=== PATIENT | male | born 1970 | race African-American/Black ===

== ENCOUNTER 2017-07-23 13:39 | Emergency (ER) | payer SELFPAY ==
[2017-07-23 17:12] LABS: Urine Blood TRACE (NEG); Urine Glucose TRACE (NEG); Urine Protein 1+ (NEG); Urine Specific Gravity >1.030 (1.005-1.030)
[2017-07-23 17:19] LABS: Absolute Lymphocytes (CBC) 2.4 K/uL (0.7-4.9); Absolute Monocytes 0.6 K/uL (0.1-1.3); Absolute Neutrophil 4.6 K/uL (1.8-8.0); Basophils % 0.7 % (0-1.3); Eosinophils % 1.5 % (0-4.4); Hematocrit 44.9 % (39.6-49.0); Lymphocytes % 30.2 % (15.3-44.8); MCH 29.9 pg (27.0-35.0); MCV 92.3 fL (80-100); MPV 8.4 fL (7.6-11.3); Monocytes % 7.9 % (3.3-12.3); RBC Red Blood Cell Count 4.86 M/uL (4.33-5.43)
[2017-07-23 17:29] LABS: Bicarbonate 28 mEq/L (21-31); Glucose Level 66 mg/dL (65-120); Lipase 19 U/L (22-51); Potassium 3.9 mEq/L (3.6-5.0); Sodium Level 138 mEq/L (135-145)
[2017-07-23 17:34] LABS: ALT/SGPT 24 IU/L (10-60); AST/SGOT 19 IU/L (10-42); Albumin 4.1 g/dL (3.2-5.5); Alkaline Phosphatase 48 IU/L (42-121); BUN Blood Urea Nitrogen 22 mg/dL (6-20); Bilirubin Direct 0.2 mg/dL (0-0.2); Bilirubin Total 1.2 mg/dL (0.3-1.2); Glomerular Filtration Rate > 90 mL/min (=/>90)
--- NOTE | 2017-07-23 18:26 | RAD REPORT ---
EXAM DESCRIPTION: CTAbdomen Pelvis W Contrast - 07/23/2017 6:00 pm CLINICAL HISTORY: Abdominal pain. GI bleeding. COMPARISON: 08/25/11 TECHNIQUE: Biphasic CT imaging of the abdomen and pelvis was performed with 100 ml non-ionic IV cont rast. All CT scans are performed using dose optimization technique as appropriate and may include automated exposure control or mA/KV adjustment according to patient size. FINDINGS: The lung bases are clear. The liver demonstrates rounded low-density lesions, the largest measuring about 3 cm in the right lob e inferiorly, likely benign hemangioma or similar benign lesions. Little overall change is seen since the comparative study. No biliary dilatation. The spleen, pancreas, adrenal glands and kidneys are w ithin normal limits. No bowel obstruction, free air, free fluid or abscess. Sigmoid diverticulosis coli is present without diverticulitis. The appendix is normal. No evidence of significant lymphadenopathy. No suspicious bony findings. IMPRESSION: No acute intra-abdominal or pelvic finding. Prominent sigmoid diverticulosis coli without diverticulitis. Colonoscopy would be suggested for foll owup assessment if not recently performed.
--- NOTE | 2017-07-23 19:10 | ER ---
Nurse's Notes [facility] Name: Davonte Boucher Age: 46 yrs Sex: Male : 1970 Arrival Date: 07/23/2017 Time: 13:41 Bed 18 Private MD: Diagnosis: Gastrointestinal hemorrhage, unspecified Presentation: 07/23 13:50 Presenting complaint: Patient states: "I guess I took too many pills for my toothache. lk1 I have taken any kind of pill I could get. I got my tooth pulled today and I have some blood in my stool.". Transition of care: patient was not received from another setting of care. Onset of symptoms was July 23, 2017 at 13:00. Care prior to arrival: None. 13:50 Method Of Arrival: Ambulatory lk1 13:50 Acuity: PADMINI 3 lk1 Triage Assessment: 13:52 General: Appears in no apparent distress. Behavior is cooperative, appropriate for age, lk1 agitated. Pain: Complains of pain in abdomen Pain currently is 7 out of 10 on a pain scale. Quality of pain is described as crampy. GI: Reports cramping, rectal bleeding, bloody stool. Historical: - Allergies: 13:52 No Known Allergies; lk1 - PMHx: 13:52 None; lk1 - PSHx: 13:52 None; lk1 - Immunization history:: Adult Immunizations up to date. - Social history:: Smoking status: Patient uses tobacco products, smokes one-half pack cigarettes per day. Screenin:20 Abuse screen: Denies threats or abuse. Nutritional screening: No deficits noted. em Tuberculosis screening: No symptoms or risk factors identified. Fall Risk None identified. Assessment: 16:20 General: Appears in no apparent distress. comfortable, Behavior is calm, cooperative. em Pain: Complains of pain in abdomen Pain does not radiate. Pain currently is 8 out of 10 on a pain scale. Quality of pain is described as sharp. Neuro: Level of Consciousness is awake, alert, obeys commands, Oriented to person, place, time, situation, Moves all extremities. Speech is normal, Facial symmetry appears normal, Reports dizziness, Denies weakness. Cardiovascular: Capillary refill < 3 seconds Patient's skin is warm and dry. Respiratory: Airway is patent Respiratory effort is even, unlabored, Respiratory pattern is regular, symmetrical. GI: Abdomen is round non-distended, Bowel sounds present X 4 quads. Abd is soft X 4 quads Abdomen is tender to palpation X 4 quads. Reports rectal bleeding, bloody stool, nausea, Patient currently denies vomiting. : Urine is clear. EENT: No signs and/or symptoms were reported regarding the EENT system. Derm: Skin is intact, Skin is pink, warm \\T\\ dry. Musculoskeletal: Range of motion: intact in all extremities. 16:30 General: The previous assessment is accurate, call light remains within reach. . ss 17:16 Reassessment: Patient appears in no apparent distress at this time. Patient and/or em family updated on plan of care and expected duration. Pain level reassessed. Patient is alert, oriented x 3, equal unlabored respirations, skin warm/dry/pink. 18:40 Reassessment: Patient appears in no apparent distress at this time. Patient and/or em family updated on plan of care and expected duration. Pain level reassessed. Patient is alert, oriented x 3, equal unlabored respirations, skin warm/dry/pink. pt request pain medication, LYDIA Holguin notified, new orders received. 19:00 Reassessment: RECD REPORT FROM RIVERA FURNITURE PACKER. 46YO BM P/W RECTAL BLEEDING AND ABD PAIN. ALL bp CURRENT ORDERS COMPLETED, DISPO PENDING. 19:23 Reassessment: PT D/C HOME AMBULATORY WITH FAMILY, DX WITH UNSPECIFIED GI HEMORRHAGE. bp Vital Signs: 13:53 BP 138 / 92; Pulse 75; Resp 16; Temp 98.2(TE); Pulse Ox 97% on R/A; Weight 107.95 kg lk1 (R); Height 5 ft. 8 in. (172.72 cm); Pain 7/10; 16:10 BP 127 / 78; Pulse 55; Resp 18; Pulse Ox 99% on R/A; em 17:00 BP 131 / 84; Pulse 59; Resp 18; Pulse Ox 99% on R/A; Pain 7/10; em 19:00 BP 149 / 95; Pulse 63; Resp 16; Pulse Ox 99% ; bp 13:53 Body Mass Index 36.19 (107.95 kg, 172.72 cm) lk1 ED Course: 13:41 Patient arrived in ED. as 13:52 Triage completed. lk1 13:55 Arm band placed on left wrist. lk1 15:56 Ezio Mejia NP is PHCP. pm1 15:56 Bismark Knight MD is Attending Physician. pm1 16:00 Rivera Puga LVN is Primary Nurse. em 16:30 Patient has correct armband on for positive identification. Bed in low position. Call em light in reach. Side rails up X2. Adult w/ patient. 16:40 Served as a director of provider relations during rectal exam. em 16:51 Radiology exam delayed due to lab results not completed at this time. (BUN/Creatinine). sj 16:55 Initial lab(s) drawn, by me, sent to lab. T\\T\\S collected, blood band applied to patient. em Inserted saline lock: 20 gauge in left antecubital area, using aseptic technique. Blood collected. 17:[address] via wheelchair. nj 18:00 CT Abd/Pelvis - W/Contrast: IV contrast only In Process Unspecified. EDMS 19:08 Kristofer Plata MD is Referral Physician. pm1 19:24 IV discontinued, intact, bleeding controlled, No redness/swelling at site. Pressure bp dressing applied. Administered Medications: 19:00 Drug: morphine 4 mg Route: IVP; Site: left antecubital; iw 19:13 Follow up: Response: Pain is decreased bp 19:00 Drug: Zofran 4 mg Route: IVP; Site: left antecubital; iw 19:13 Follow up: Response: Pain is decreased bp Outcome: 19:09 Discharge ordered by MD. pm1 19:24 Discharged to home ambulatory, with family. bp 19:24 Condition: stable 19:24 Discharge instructions given to patient, family, Instructed on discharge instructions, follow up and referral plans. medication usage, Demonstrated understanding of instructions, follow-up care, medications, Prescriptions given X 1. 19:25 Patient left the ED. bp Signatures: Dispatcher [employer] EDKY Natalie Donovan Rivera Puga LVN LVN em Caity Goins Irene, MARTY FERGUSON Germaine Bowman RN RN Kimberlee Pereira RN RN lk1 Ezio Mejia NP VALUE ANALYSIS COORDINATOR pm1 Marcio Delgado Brian RN RN bp Corrections: (The following items were deleted from the chart) 19:15 18:40 Reassessment: Patient appears in no apparent distress at this time. Patient em and/or family updated on plan of care and expected duration. Pain level reassessed. Patient is alert, oriented x 3, equal unlabored respirations, skin warm/dry/pink. Patient states feeling better. em
--- NOTE | 2017-07-23 19:10 | EDPHYS ---
Physician Documentation [facility] Name: Davonte Boucher Age: 46 yrs Sex: Male : 1970 Arrival Date: 07/23/2017 Time: 13:41 Bed 18 Private MD: ED Physician Bismark Knight HPI: 07/23 17:00 This 46 yrs old Black Male presents to ER via Ambulatory with complaints of Rectal pm1 Bleeding. 17:00 The patient presents to the emergency department with bleeding from the rectum/anus, pm1 that is mild. Onset: The symptoms/episode began/occurred today. Modifying factors: The symptoms are alleviated by nothing, The symptoms are aggravated by bowel movement. Associate signs and symptoms: Pertinent positives: Cramping abdominal pain, Pertinent negatives: constipation, diarrhea, dysuria, fever, vomiting. The patient has not experienced similar symptoms in the past. Patient with dental extraction today. Patient reports that he was taking ibuprofen and tylenol for pain. Patient with bright red blood on solid stool and with wiping with one bowel movement today. Historical: - Allergies: 13:52 No Known Allergies; lk1 - PMHx: 13:52 None; lk1 - PSHx: 13:52 None; lk1 - Immunization history:: Adult Immunizations up to date. - Social history:: Smoking status: Patient uses tobacco products, smokes one-half pack cigarettes per day. ROS: 17:00 Constitutional: Negative for fever, chills, and weight loss, Eyes: Negative for injury, pm1 pain, redness, and discharge, ENT: Negative for injury, pain, and discharge, Neck: Negative for injury, pain, and swelling, Cardiovascular: Negative for chest pain, palpitations, and edema, Respiratory: Negative for shortness of breath, cough, wheezing, and pleuritic chest pain. 17:00 Back: Negative for injury and pain, : Negative for injury, bleeding, discharge, and swelling, MS/Extremity: Negative for injury and deformity, Skin: Negative for injury, rash, and discoloration, Neuro: Negative for headache, weakness, numbness, tingling, and seizure. 17:00 Abdomen/GI: Positive for abdominal pain, rectal bleeding, Negative for nausea, vomiting, and diarrhea. Exam: 17:00 Constitutional: This is a well developed, well nourished patient who is awake, alert, pm1 and in no acute distress. Head/Face: Normocephalic, atraumatic. Eyes: Pupils equal round and reactive to light, extra-ocular motions intact. Lids and lashes normal. Conjunctiva and sclera are non-icteric and not injected. Cornea within normal limits. Periorbital areas with no swelling, redness, or edema. ENT: Nares patent. No nasal discharge, no septal abnormalities noted. Tympanic membranes are normal and external auditory canals are clear. Oropharynx with no redness, swelling, or masses, exudates, or evidence of obstruction, uvula midline. Mucous membranes moist. Neck: Trachea midline, no thyromegaly or masses palpated, and no cervical lymphadenopathy. Supple, full range of motion without nuchal rigidity, or vertebral point tenderness. No Meningismus. Chest/axilla: Normal chest wall appearance and motion. Nontender with no deformity. No lesions are appreciated. Cardiovascular: Regular rate and rhythm with a normal S1 and S2. No gallops, murmurs, or rubs. Normal PMI, no JVD. No pulse deficits. Respiratory: Lungs have equal breath sounds bilaterally, clear to auscultation and percussion. No rales, rhonchi or wheezes noted. No increased work of breathing, no retractions or nasal flaring. Abdomen/GI: Soft, non-tender, with normal bowel sounds. No distension or tympany. No guarding or rebound. No evidence of tenderness throughout. 17:00 Back: No spinal tenderness. No costovertebral tenderness. Full range of motion. Skin: Warm, dry with normal turgor. Normal color with no rashes, no lesions, and no evidence of cellulitis. MS/ Extremity: Pulses equal, no cyanosis. Neurovascular intact. Full, normal range of motion. 17:00 Abdomen/GI: Rectal exam: rectal tone normal, Stool: guaiac positive, hemorrhoid(s), are not appreciated, Rivera FERGUSON. 17:00 Neuro: Orientation: is normal, Motor: moves all fours, Sensation: is normal, no obvious gross deficits. Vital Signs: 13:53 BP 138 / 92; Pulse 75; Resp 16; Temp 98.2(TE); Pulse Ox 97% on R/A; Weight 107.95 kg lk1 (R); Height 5 ft. 8 in. (172.72 cm); Pain 7/10; 16:10 BP 127 / 78; Pulse 55; Resp 18; Pulse Ox 99% on R/A; em 17:00 BP 131 / 84; Pulse 59; Resp 18; Pulse Ox 99% on R/A; Pain 7/10; em 19:00 BP 149 / 95; Pulse 63; Resp 16; Pulse Ox 99% ; bp 13:53 Body Mass Index 36.19 (107.95 kg, 172.72 cm) lk1 MDM: 15:57 Patient medically screened. pm1 16:06 Refusal of service: The patient/guardian displays adequate decision making capability pm1 and despite a detailed discussion of alternatives, benefits, risks, and consequences refuses: Patient refused rectal exam. 19:05 ED course: Patient without any bowel movement or rectal bleeding in the ER. Hemoglobin pm1 stable. Patient requesting pain medication for dental extraction today. Patient was prescribed ibuprofen by dentist. Will discharge with tylenol #3.. 19:07 Data reviewed: vital signs. Data interpreted: Pulse oximetry: on room air is 99 %. pm1 Interpretation: normal. Counseling: I had a detailed discussion with the patient and/or guardian regarding: the historical points, exam findings, and any diagnostic results supporting the discharge/admit diagnosis, lab results, radiology results, the need for outpatient follow up, a senior security analyst, colonscopy, to return to the emergency department if symptoms worsen or persist or if there are any questions or concerns that arise at home, . 07/23 16:06 Order name: Basic Metabolic Panel; Complete Time: 18:06 pm1 07/23 16:06 Order name: CBC with Diff; Complete Time: 17:29 pm1 07/23 16:06 Order name: Hepatic Function; Complete Time: 18:06 pm1 07/23 16:06 Order name: Lipase; Complete Time: 18:06 pm1 07/23 16:44 Order name: Type And Screen; Complete Time: 18:23 pm1 07/23 17:10 Order name: Urine Dipstick--Ancillary (enter results); Complete Time: 17:29 bd 07/23 16:06 Order name: IV Saline Lock; Complete Time: 17:17 pm1 07/23 16:06 Order name: Labs collected and sent; Complete Time: 17:17 pm1 07/23 16:06 Order name: Urine Dipstick-Ancillary (obtain specimen); Complete Time: 17:17 pm1 07/23 16:44 Order name: CT Abd/Pelvis - W/Contrast: IV contrast only; Complete Time: 18:27 pm1 Administered Medications: 19:00 Drug: morphine 4 mg Route: IVP; Site: left antecubital; iw 19:13 Follow up: Response: Pain is decreased bp 19:00 Drug: Zofran 4 mg Route: IVP; Site: left antecubital; iw 19:13 Follow up: Response: Pain is decreased bp Disposition: 07/23/17 19:09 Discharged to Home. Impression: Gastrointestinal hemorrhage, unspecified. - Condition is Stable. - Discharge Instructions: Gastrointestinal Bleeding. - Prescriptions for Tylenol- Codeine #3 300-30 mg Oral Tablet - take 2 tablets by ORAL route every 6 hours As needed; 20 tablet. - Medication Reconciliation Form, Thank You Letter, Work release form form. - Follow up: Emergency Department; When: As needed; Reason: Worsening of condition. Follow up: Private Physician; When: 2 - 3 days; Reason: Recheck today's complaints, Continuance of care, Re-evaluation by your physician. Follow up: Kristofer Plata MD; When: 2 - 3 days; Reason: Recheck today's complaints, Continuance of care, Re-evaluation by your physician. - Problem is new. - Symptoms have improved. Addendum: 07/28/2017 03:03 Co-signature as Attending Physician, Bismark Knight MD I agree with the assessment and t w4 plan of care. Signatures: Dispatcher [employer] Kaylynn Gonzalez, Kimberlee Childs RN RN RN lk1 Ezio Mejia, PROCESS STEWARD PROCESS STEWARD pm1 Bernardo Longo, Bismark Duran RN, MD MD tw4
[2017-07-23] MEDS ORDERED: MORPHINE 4 MG/ML SYR ONE (19:18)
[2017-07-23] MEDS ORDERED: ONDANSETRON 4 MG/2 ML VIAL ONE (19:18)
[2017-07-23 19:29] VITALS: TEMP 98.2
[2017-07-23 19:30] VITALS: O2SAT 99
[2017-07-23 19:32] VITALS: BP 149/95
== END 2017-07-23 19:25 | disposition home or self-care (01) ==
LOC: ER 13:39
DX: K92.2 Gastrointestinal hemorrhage, unspecified (principal); F17.210 Nicotine dependence, cigarettes, uncomplicated
CPT/HCPCS: 36415; 74177; 80048; 80076; 81003; 83690; 85025; 86850; 86900; 86901; 96374; 96375; 99284; J2405; Q9967

== ENCOUNTER 2017-08-13 06:57 | Emergency (ER) | payer SELFPAY ==
[2017-08-13] MEDS ORDERED: MORPHINE 4 MG/ML SYR ONE ×3 (08:52→11:37)
[2017-08-13] MEDS ORDERED: ONDANSETRON 4 MG/2 ML VIAL ONE (08:53)
[2017-08-13] MEDS ORDERED: NA CHLORIDE 0.9% 1,000 ML ONE (08:53)
[2017-08-13 09:21] LABS: Absolute Lymphocytes (CBC) 1.9 K/uL (0.7-4.9); Absolute Monocytes 0.5 K/uL (0.1-1.3); Absolute Neutrophil 3.4 K/uL (1.8-8.0); Eosinophils % 2.5 % (0-4.4); Hematocrit 44.9 % (39.6-49.0); MCH 30.5 pg (27.0-35.0); MCV 91.7 fL (80-100); MPV 8.7 fL (7.6-11.3); Monocytes % 7.7 % (3.3-12.3)
[2017-08-13 10:20] LABS: Bicarbonate 27 mEq/L (21-31); Glucose Level 98 mg/dL (65-120); Lipase 16 U/L (22-51); Potassium 3.9 mEq/L (3.6-5.0); Sodium Level 142 mEq/L (135-145)
[2017-08-13 10:26] LABS: ALT/SGPT 29 IU/L (10-60); AST/SGOT 23 IU/L (10-42); Albumin 3.8 g/dL (3.2-5.5); Alkaline Phosphatase 46 IU/L (42-121); BUN Blood Urea Nitrogen 21 mg/dL (6-20); Bilirubin Direct 0.1 mg/dL (0-0.2); Bilirubin Total 0.6 mg/dL (0.3-1.2); Protein, Total 6.6 g/dL (6.0-8.3)
--- NOTE | 2017-08-13 10:49 | RAD REPORT ---
EXAM DESCRIPTION: CT - Abdomen Pelvis W Contrast - 08/13/2017 10:12 am CLINICAL HISTORY: Abdominal pain COMPARISON: CT study July 23, 2017 and August 2011 TECHNIQUE: Biphasic, helical CT imaging of the abdomen and pelvis was performed following 100 ml non -ionic IV contrast. Oral contrast was given. All CT scans are performed using dose optimization technique as appropriate and may include automated exposure control or mA/KV adjustment according to patient size. FINDINGS: No suspicious findings in the lung bases. Low-density lesions are again noted in the liver. Largest is a subcapsular lower right lobe lesion ap proximately 2.8 cm in size. Benign hemangioma is would be the most likely etiology. The lack of progr ession indicates a benign etiology as well. No splenic abnormality. No pancreatic or peripancreatic a bnormal finding. Gallbladder and biliary tree are also without suspicious finding. Symmetric renal function is seen with no hydronephrosis or suspicious renal mass. No acute renal pare nchymal process. Partially filled urinary bladder shows no suspicious finding No dilated bowel loop. Stomach and small bowel show no suspicious findings. The appendix is normal. F rom the cecum through the descending colon there is no acute process. Patient again noted to have mil d to moderate diverticulosis in this portion of the colon. Diverticulosis is more prominent in the si gmoid. There is wall thickening present in the proximal sigmoid colon without inflammatory stranding. This is slightly more prominent than seen in July. Oral contrast has passed through this region int o the distal rectum. No free air or pneumatosis. No focal inflammatory stranding. No hernia, mass o r bulky lymphadenopathy. No adrenal abnormality. No suspicious bony findings. IMPRESSION: Prominent sigmoid diverticulosis with wall thickening of the sigmoid colon. This is slig htly more prominent than seen July 23. No inflammatory stranding is seen. Finding likely reflects early diverticulitis. No free air, extravasation of contrast or surgically emergent finding. Remainder the examination is stable from prior imaging.
--- NOTE | 2017-08-13 11:43 | EDPHYS ---
Physician Documentation [facility] Name: Davonte Boucher Age: 46 yrs Sex: Male : 1970 Arrival Date: 08/13/2017 Time: 07:00 Bed 4 Private MD: ED Physician Bismark Knight HPI: 08/13 08:46 This 46 yrs old Black Male presents to ER via Ambulatory with complaints of Abdominal pm1 Pain. 08:46 The patient presents with abdominal pain in the lower abdomen. Onset: The pm1 symptoms/episode began/occurred this morning, at 02:00. The symptoms do not radiate. Associated signs and symptoms: Pertinent negatives: nausea, vomiting, and diarrhea, chest pain, dysuria, fever, headache, shortness of breath. The symptoms are described as achy. Modifying factors: The symptoms are alleviated by nothing, the symptoms are aggravated by nothing. Severity of pain: in the emergency department the pain is actually worse. The patient has experienced a previous episode, Patient reports it feels similar to his prior diverticulitis. The patient has not recently seen a physician. Historical: - Allergies: 07:10 NKA; iw - Home Meds: 07:10 None [Active]; iw - PMHx: 07:10 None; iw - PSHx: 07:10 None; iw - Immunization history:: Adult Immunizations not up to date. - Social history:: Smoking status: Patient uses tobacco products, smokes one-half pack cigarettes per day. ROS: 08:46 Constitutional: Negative for fever, chills, and weight loss, Eyes: Negative for injury, pm1 pain, redness, and discharge, ENT: Negative for injury, pain, and discharge, Neck: Negative for injury, pain, and swelling, Cardiovascular: Negative for chest pain, palpitations, and edema, Respiratory: Negative for shortness of breath, cough, wheezing, and pleuritic chest pain. 08:46 Back: Negative for injury and pain, : Negative for injury, bleeding, discharge, and swelling, MS/Extremity: Negative for injury and deformity, Skin: Negative for injury, rash, and discoloration, Neuro: Negative for headache, weakness, numbness, tingling, and seizure. 08:46 Abdomen/GI: Positive for abdominal pain, of the right lower quadrant and left lower quadrant, Negative for nausea, vomiting, and diarrhea. Exam: 08:46 Constitutional: This is a well developed, well nourished patient who is awake, alert, pm1 and in no acute distress. Head/Face: Normocephalic, atraumatic. Chest/axilla: Normal chest wall appearance and motion. Nontender with no deformity. No lesions are appreciated. Cardiovascular: Regular rate and rhythm with a normal S1 and S2. No gallops, murmurs, or rubs. Normal PMI, no JVD. No pulse deficits. Respiratory: Lungs have equal breath sounds bilaterally, clear to auscultation and percussion. No rales, rhonchi or wheezes noted. No increased work of breathing, no retractions or nasal flaring. 08:46 Back: No spinal tenderness. No costovertebral tenderness. Full range of motion. Skin: Warm, dry with normal turgor. Normal color with no rashes, no lesions, and no evidence of cellulitis. MS/ Extremity: Pulses equal, no cyanosis. Neurovascular intact. Full, normal range of motion. 08:46 Abdomen/GI: Inspection: abdomen appears normal, Bowel sounds: normal, Palpation: soft, nontender. 08:46 Neuro: Orientation: is normal, Motor: moves all fours, Gait: is steady, at a normal pace, without difficulty. Vital Signs: 07:10 BP 135 / 92; Pulse 72; Resp 19; Temp 97.7(O); Pulse Ox 96% on R/A; Pain 10/10; tw2 08:55 BP 123 / 77; Pulse 58; Resp 18 S; Pulse Ox 100% on R/A; Pain 8/10; jl7 09:30 BP 122 / 79; Pulse 53; Resp 18; Pulse Ox 100% on R/A; tw2 10:30 BP 121 / 78; Pulse 51; Resp 19; Pulse Ox 100% on R/A; Pain 8/10; tw2 11:55 BP 119 / 76; Pulse 57; Resp 18; Pulse Ox 98% on R/A; tw2 MDM: 07:11 Patient medically screened. pm1 11:42 Data reviewed: vital signs. Data interpreted: Pulse oximetry: on room air is 100 %. pm1 Interpretation: normal. Counseling: I had a detailed discussion with the patient and/or guardian regarding: the historical points, exam findings, and any diagnostic results supporting the discharge/admit diagnosis, lab results, radiology results, the need for outpatient follow up, to return to the emergency department if symptoms worsen or persist or if there are any questions or concerns that arise at home. 08/13 07:22 Order name: Basic Metabolic Panel; Complete Time: 10:38 pm1 08/13 07:22 Order name: CBC with Diff; Complete Time: 09:59 pm1 08/13 07:22 Order name: Hepatic Function; Complete Time: 10:38 pm1 08/13 07:22 Order name: Lipase; Complete Time: 10:38 pm1 08/13 07:22 Order name: CT Abd/Pelvis - W/Contrast; Complete Time: 10:53 pm1 08/13 07:22 Order name: IV Saline Lock; Complete Time: 09:01 pm1 08/13 11:17 Order name: EKG Electrocardiogram EDMS 08/13 07:22 Order name: Labs collected and sent; Complete Time: 09:01 pm1 08/13 07:22 Order name: Urine Dipstick-Ancillary (obtain specimen); Complete Time: 12:04 pm1 08/13 09:31 Order name: Labs - recollect needed; Complete Time: 11:04 bd Administered Medications: 08:53 Drug: NS 0.9% 1000 ml Route: IV; Rate: 1000 ml; Site: left antecubital; jl7 12:06 Follow up: Response: No adverse reaction; IV Status: Completed infusion; IV Intake: tw2 1000ml 08:53 Drug: Zofran 4 mg Route: IVP; Site: left antecubital; jl7 11:35 Follow up: Response: No adverse reaction tw2 08:55 Drug: morphine 4 mg Route: IVP; Site: left antecubital; jl7 11:35 Follow up: Response: No adverse reaction tw2 09:48 Drug: morphine 4 mg Route: IVP; Site: left antecubital; pt 10:17 Follow up: Response: Pain is unchanged, physician notified pt 11:42 Drug: morphine 2 mg Route: IVP; Site: left antecubital; jl7 12:06 Follow up: Response: No adverse reaction tw2 12:10 Drug: Flagyl 500 mg Route: PO; tw2 12:17 Follow up: Response: No adverse reaction tw2 12:10 Drug: Cipro 500 mg Route: PO; tw2 12:16 Follow up: Response: No adverse reaction; pt states "i took these antibiotics the last tw2 time with no problems", does not want to wait the 15 minute followup Disposition: 08/13/17 11:42 Discharged to Home. Impression: Diverticulitis of large intestine without perforation or abscess without bleeding. - Condition is Stable. - Discharge Instructions: Diverticulitis. - Prescriptions for Bentyl 20 mg Oral Tablet - take 1 tablet by ORAL route every 6 hours As needed; 20 tablet. Flagyl 500 mg Oral Tablet - take 1 tablet by ORAL route every 8 hours for 10 days; 30 tablet. Cipro 500 mg Oral Tablet - take 1 tablet by ORAL route every 12 hours for 10 days; 20 tablet. Tylenol- Codeine #3 300-30 mg Oral Tablet - take 2 tablets by ORAL route every 6 hours As needed; 20 tablet. - Medication Reconciliation Form, Thank You Letter, Work release form, Family Work Release form. - Follow up: Emergency Department; When: As needed; Reason: Worsening of condition. Follow up: Private Physician; When: 2 - 3 days; Reason: Recheck today's complaints, Continuance of care, Re-evaluation by your physician. Follow up: Abdon Simon MD; When: 2 - 3 days; Reason: Recheck today's complaints, Continuance of care, Re-evaluation by your physician. - Problem is new. - Symptoms have improved. Signatures: Dispatcher [employer] EDMS Gabrielle Eugene Paige, RN RN pt Kaylynn Rangel RN MARTY iw Ezio Mejia, LYDIA BIOMASS FACILITATOR pm1 Stephanie Elise RN RN tw2 Margarita Vance RN RN jl7
--- NOTE | 2017-08-13 11:43 | ER ---
Nurse's Notes [facility] Name: Davonte Boucher Age: 46 yrs Sex: Male : 1970 Arrival Date: 08/13/2017 Time: 07:00 Bed 4 Private MD: Diagnosis: Diverticulitis of large intestine without perforation or abscess without bleeding Presentation: 08/13 07:09 Presenting complaint: Patient states: has had mid abd pain since about 0200 this iw morning, pain described as sharp, cramping, last BM was 2 days ago and was hard, denies nausea or vomiting. Transition of care: patient was not received from another setting of care. Onset of symptoms was August 13, 2017. Initial Sepsis Screen: Does the patient meet any 2 criteria? No. Patient's initial sepsis screen is negative. Does the patient have a suspected source of infection? No. Patient's initial sepsis screen is negative. Care prior to arrival: None. 07:09 Method Of Arrival: Ambulatory iw 07:09 Acuity: PADMINI 3 iw Historical: - Allergies: 07:10 NKA; iw - Home Meds: 07:10 None [Active]; iw - PMHx: 07:10 None; iw - PSHx: 07:10 None; iw - Immunization history:: Adult Immunizations not up to date. - Social history:: Smoking status: Patient uses tobacco products, smokes one-half pack cigarettes per day. Screenin:11 Abuse screen: Denies threats or abuse. Nutritional screening: No deficits noted. tw2 Tuberculosis screening: No symptoms or risk factors identified. Fall Risk None identified. Assessment: 08:30 General: Appears in no apparent distress. Behavior is calm, cooperative. Pain: iw Complains of pain in left lower quadrant and right lower quadrant. Neuro: Level of Consciousness is awake, alert, obeys commands, Oriented to person, place, time, situation, Moves all extremities. Full function. Cardiovascular: Capillary refill < 3 seconds in bilateral fingers Patient's skin is warm and dry. Respiratory: Respiratory effort is even, unlabored, Respiratory pattern is regular, symmetrical. GI: Bowel sounds present X 4 quads. Abd is soft X 4 quads. Derm: Skin is pink, warm \\T\\ dry. normal. Musculoskeletal: Range of motion: intact in all extremities. 09:30 Reassessment: Patient appears in no apparent distress at this time. No changes from tw2 previously documented assessment. Patient and/or family updated on plan of care and expected duration. Pain level reassessed. Patient is alert, oriented x 3, equal unlabored respirations, skin warm/dry/pink. 10:09 General: Appears uncomfortable, Patient complains of pain of 9/10. Ezio Reed notified pt new pain medication order given.. 10:28 Reassessment: Patient and/or family updated on plan of care and expected duration. Pain tw2 level reassessed. Patient is alert, oriented x 3, equal unlabored respirations, skin warm/dry/pink. pt states "i need something for pain and can i get something to eat", provider notified. Patient states symptoms have not improved. 11:30 Reassessment: Patient appears in no apparent distress at this time. No changes from tw2 previously documented assessment. Patient and/or family updated on plan of care and expected duration. Pain level reassessed. Patient is alert, oriented x 3, equal unlabored respirations, skin warm/dry/pink. 11:54 Reassessment: Patient appears in no apparent distress at this time. Patient and/or tw2 family updated on plan of care and expected duration. Pain level reassessed. Patient is alert, oriented x 3, equal unlabored respirations, skin warm/dry/pink. Patient states feeling better. Vital Signs: 07:10 BP 135 / 92; Pulse 72; Resp 19; Temp 97.7(O); Pulse Ox 96% on R/A; Pain 10/10; tw2 08:55 BP 123 / 77; Pulse 58; Resp 18 S; Pulse Ox 100% on R/A; Pain 8/10; jl7 09:30 BP 122 / 79; Pulse 53; Resp 18; Pulse Ox 100% on R/A; tw2 10:30 BP 121 / 78; Pulse 51; Resp 19; Pulse Ox 100% on R/A; Pain 8/10; tw2 11:55 BP 119 / 76; Pulse 57; Resp 18; Pulse Ox 98% on R/A; tw2 ED Course: 07:00 Patient arrived in ED. es 07:10 Triage completed. iw 07:10 Stephanie Elise RN is Primary Nurse. tw2 07:10 Arm band placed on. iw 07:11 Ezio Mejia NP is PHCP. pm1 07:11 Bismark Knight MD is Attending Physician. pm1 07:11 Placed in gown. Bed in low position. Adult w/ patient. Pulse ox on. NIBP on. tw2 08:52 Initial lab(s) drawn, by me, sent to lab. Inserted saline lock: 20 gauge in left iw antecubital area, using aseptic technique. Blood collected. 09:33 EKG done, by technical sme. reviewed by Jose Fontenot MD. tc 09:34 Radiology exam delayed due to lab results not completed at this time. (BUN/Creatinine). jg1 10:11 CT completed. Patient tolerated procedure well. Patient moved to CT via stretcher. sj Patient moved back from CT. 10:12 CT Abd/Pelvis - W/Contrast In Process Unspecified. EDMS 11:45 Abdon Simon MD is Referral Physician. pm1 12:05 Awaiting: provider to give abx, added at discharge. tw2 12:17 No provider procedures requiring assistance completed. IV discontinued, intact, tw2 bleeding controlled, No redness/swelling at site. Pressure dressing applied. Administered Medications: 08:53 Drug: NS 0.9% 1000 ml Route: IV; Rate: 1000 ml; Site: left antecubital; jl7 12:06 Follow up: Response: No adverse reaction; IV Status: Completed infusion; IV Intake: tw2 1000ml 08:53 Drug: Zofran 4 mg Route: IVP; Site: left antecubital; jl7 11:35 Follow up: Response: No adverse reaction tw2 08:55 Drug: morphine 4 mg Route: IVP; Site: left antecubital; jl7 11:35 Follow up: Response: No adverse reaction tw2 09:48 Drug: morphine 4 mg Route: IVP; Site: left antecubital; pt 10:17 Follow up: Response: Pain is unchanged, physician notified pt 11:42 Drug: morphine 2 mg Route: IVP; Site: left antecubital; jl7 12:06 Follow up: Response: No adverse reaction tw2 12:10 Drug: Flagyl 500 mg Route: PO; tw2 12:17 Follow up: Response: No adverse reaction tw2 12:10 Drug: Cipro 500 mg Route: PO; tw2 12:16 Follow up: Response: No adverse reaction; pt states "i took these antibiotics the last tw2 time with no problems", does not want to wait the 15 minute followup Intake: 12:06 IV: 1000ml; Total: 1000ml. tw2 Outcome: 11:42 Discharge ordered by . pm1 12:18 Discharged to home ambulatory, with significant other. tw2 12:18 Condition: stable 12:18 Discharge instructions given to patient, significant other, Instructed on discharge instructions, follow up and referral plans. no drinking with medication, no driving heavy equipment, medication usage, Demonstrated understanding of instructions, follow-up care, medications, Prescriptions given X 4. 12:18 Patient left the ED. tw2 Signatures: Dispatcher [employer] EDMS Mojgan Louis, RN RN pt Ailyn Khoury Jessica jg1 Jones, Susan sj Williams, Irene RN RN iw Katlyn Russell, armored machine operator EKG Ttc Ezio Mejia, BEAUTY PARLOR CLEANER BEAUTY PARLOR CLEANER pm1 Stephanie Elise RN RN tw2 Margarita Vance RN RN jl7 Corrections: (The following items were deleted from the chart) 10:31 10:30 BP 121 / 78; Pulse 51bpm; Resp 19bpm; Pulse Ox 100% RA; tw2 tw2
[2017-08-13] MEDS ORDERED: CIPROFLOXACIN HCL 500 MG TAB ONE (12:10)
[2017-08-13] MEDS ORDERED: metroNIDAZOLE 500 MG TABLET ONE (12:10)
[2017-08-13 12:30] VITALS: TEMP 97.7
[2017-08-13 12:35] VITALS: BP 119/76; O2SAT 98
--- NOTE | 2017-08-13 13:54 | EKG ---
Test Date: 2017-08-13 Test Time: 09:19:27 Property Condition Assessor: ARIANA MEASUREMENT RESULTS: Intervals: Rate: 53 VA: 126 QRSD: 104 QT: 424 QTc: 397 [place]: P: 46 VA: 126 QRS: 53 T: 45 INTERPRETIVE STATEMENTS: Sinus bradycardia Otherwise normal ECG Compared to ECG 01/28/2012 13:57:39 Sinus rhythm no longer present Myocardial infarct finding no longer present Electronically Signed On 08-13-17 13:53:16 CDT by Missael Millard
== END 2017-08-13 12:18 | disposition home or self-care (01) ==
LOC: ER 06:57
DX: K57.92 Diverticulitis of intestine, part unspecified, without perforation or abscess without bleeding (principal); F17.210 Nicotine dependence, cigarettes, uncomplicated
CPT/HCPCS: 36415; 74177; 80048; 80076; 83690; 85025; 93005; 96361; 96374; 96375; 99285; J2405; J7030; Q9967

== ENCOUNTER 2017-08-14 12:53 | Emergency (ER) | payer SELFPAY ==
[2017-08-14] MEDS ORDERED: PROMETHAZINE 25 MG/ML VIAL ONE (14:11)
[2017-08-14] MEDS ORDERED: NA CHLORIDE 0.9% 1,000 ML ONE (14:12)
[2017-08-14] MEDS ORDERED: MORPHINE 4 MG/ML SYR ONE (14:12)
[2017-08-14 16:16] LABS: Potassium 4.1 mEq/L (3.6-5.0)
[2017-08-14 16:22] LABS: Albumin 3.9 g/dL (3.2-5.5); Bilirubin Direct 0.1 mg/dL (0-0.2); Bilirubin Total 1.1 mg/dL (0.3-1.2); Protein, Total 6.7 g/dL (6.0-8.3)
[2017-08-14 16:27] LABS: Absolute Monocytes 0.5 K/uL (0.1-1.3); Absolute Neutrophil 2.7 K/uL (1.8-8.0); Basophils % 0.6 % (0-1.3); Eosinophils % 2.6 % (0-4.4); Hematocrit 44.1 % (39.6-49.0); Lymphocytes % 38.2 % (15.3-44.8); MCH 30.3 pg (27.0-35.0); MCV 92.9 fL (80-100); MPV 9.1 fL (7.6-11.3); Monocytes % 8.9 % (3.3-12.3); RBC Red Blood Cell Count 4.74 M/uL (4.33-5.43)
--- NOTE | 2017-08-14 16:33 | EDPHYS ---
Physician Documentation [facility] Name: Davonte Boucher Age: 46 yrs Sex: Male : 1970 Arrival Date: 08/14/2017 Time: 12:56 Bed 14 Private MD: ED Physician Hank Chery HPI: 08/14 14:00 This 46 yrs old Black Male presents to ER via Ambulatory with complaints of Abdominal pm1 Pain. 14:00 The patient presents with abdominal pain in the lower abdomen. Onset: The pm1 symptoms/episode began/occurred 3 day(s) ago. The symptoms do not radiate. Associated signs and symptoms: Pertinent positives: nausea and vomiting, vomit x 2 today, Pertinent negatives: diarrhea, dysuria, fever. The symptoms are described as achy. Modifying factors: The symptoms are alleviated by narcotics, the symptoms are aggravated by nothing. Severity of pain: in the emergency department the pain is actually worse. The patient has experienced a previous episode. The patient has been recently seen at the [facility] Emergency Department, yesterday, for similar complaints labs were performed, CT scan was performed, was given a prescription for antibiotics, was given a prescription for pain medications. Historical: - Allergies: 13:19 NKA; tw2 - Home Meds: 13:19 None [Active]; tw2 - PMHx: 13:19 None; tw2 - PSHx: 13:19 None; tw2 - Immunization history:: Adult Immunizations up to date. - Social history:: Smoking status: Patient uses tobacco products, smokes one pack cigarettes per day. Patient uses alcohol, only on a social basis. ROS: 14:00 Constitutional: Negative for fever, chills, and weight loss, Eyes: Negative for injury, pm1 pain, redness, and discharge, ENT: Negative for injury, pain, and discharge, Neck: Negative for injury, pain, and swelling, Cardiovascular: Negative for chest pain, palpitations, and edema, Respiratory: Negative for shortness of breath, cough, wheezing, and pleuritic chest pain. 14:00 Back: Negative for injury and pain, : Negative for injury, bleeding, discharge, and swelling, MS/Extremity: Negative for injury and deformity, Skin: Negative for injury, rash, and discoloration, Neuro: Negative for headache, weakness, numbness, tingling, and seizure. 14:00 Abdomen/GI: Positive for abdominal pain, nausea and vomiting, Negative for diarrhea. 14:00 Abdomen/GI: Negative for rectal bleeding. Exam: 14:00 Constitutional: This is a well developed, well nourished patient who is awake, alert, pm1 and in no acute distress. Head/Face: Normocephalic, atraumatic. Eyes: Pupils equal round and reactive to light, extra-ocular motions intact. Lids and lashes normal. Conjunctiva and sclera are non-icteric and not injected. Cornea within normal limits. Periorbital areas with no swelling, redness, or edema. ENT: Nares patent. No nasal discharge, no septal abnormalities noted. Tympanic membranes are normal and external auditory canals are clear. Oropharynx with no redness, swelling, or masses, exudates, or evidence of obstruction, uvula midline. Mucous membranes moist. Neck: Trachea midline, no thyromegaly or masses palpated, and no cervical lymphadenopathy. Supple, full range of motion without nuchal rigidity, or vertebral point tenderness. No Meningismus. Chest/axilla: Normal chest wall appearance and motion. Nontender with no deformity. No lesions are appreciated. Cardiovascular: Regular rate and rhythm with a normal S1 and S2. No gallops, murmurs, or rubs. Normal PMI, no JVD. No pulse deficits. Respiratory: Lungs have equal breath sounds bilaterally, clear to auscultation and percussion. No rales, rhonchi or wheezes noted. No increased work of breathing, no retractions or nasal flaring. 14:00 Back: No spinal tenderness. No costovertebral tenderness. Full range of motion. Skin: Warm, dry with normal turgor. Normal color with no rashes, no lesions, and no evidence of cellulitis. MS/ Extremity: Pulses equal, no cyanosis. Neurovascular intact. Full, normal range of motion. 14:00 Abdomen/GI: Inspection: abdomen appears normal, Bowel sounds: normal, Palpation: abdomen is soft and non-tender. 14:00 Neuro: Orientation: is normal, Motor: is normal, Sensation: is normal, no obvious gross deficits. Vital Signs: 13:20 BP 104 / 77; Pulse 84; Resp 18; Temp 98.3(O); Pulse Ox 97% on R/A; Weight 99.79 kg (R); tw2 Height 5 ft. 8 in. (172.72 cm); Pain 10/10; 14:00 BP 120 / 79; Pulse 62; Resp 16; Pulse Ox 99% ; Pain 8/10; jl7 15:00 BP 126 / 80; Pulse 65; Resp 16; Pulse Ox 99% ; jl7 15:52 BP 129 / 86; Pulse 56; Resp 14; Pulse Ox 100% ; Pain 8/10; jl7 16:30 BP 120 / 75; Pulse 60; Resp 16; Pulse Ox 99% ; jl7 13:20 Body Mass Index 33.45 (99.79 kg, 172.72 cm) tw2 MDM: 13:26 Patient medically screened. rn 17:00 Data reviewed: vital signs. Data interpreted: Pulse oximetry: on room air is 99 %. pm1 Interpretation: normal. 17:00 Counseling: I had a detailed discussion with the patient and/or guardian regarding: the pm1 historical points, exam findings, and any diagnostic results supporting the discharge/admit diagnosis, lab results, the need for outpatient follow up, to return to the emergency department if symptoms worsen or persist or if there are any questions or concerns that arise at home. 08/14 15:21 Order name: Basic Metabolic Panel; Complete Time: 16:37 pm1 08/14 15:21 Order name: CBC with Diff; Complete Time: 16:35 pm1 08/14 16:35 Interpretation: Within normal limits. rp3 08/14 15:21 Order name: Hepatic Function; Complete Time: 16:37 pm1 08/14 15:21 Order name: Lipase; Complete Time: 16:37 pm1 08/14 14:07 Order name: IV Saline Lock; Complete Time: 14:43 pm1 08/14 14:07 Order name: PO challenge; Complete Time: 15:43 pm1 08/14 15:21 Order name: Labs collected and sent; Complete Time: 15:43 pm1 Administered Medications: 14:36 Drug: Phenergan 12.5 mg Route: IVP; Site: left antecubital; jl7 15:10 Follow up: Response: No adverse reaction jl7 14:36 Drug: NS 0.9% 1000 ml Route: IV; Rate: 1000 ml; Site: left antecubital; jl7 15:30 Follow up: IV Status: Completed infusion jl7 14:38 Drug: morphine 4 mg Route: IVP; Site: left antecubital; jl7 15:10 Follow up: Response: No adverse reaction; Pain is unchanged, physician notified jl7 Disposition: 08/15 07:05 Co-signature as Attending Physician, Hank Chery MD. rn Disposition: 08/14/17 16:32 Discharged to Home. Impression: Diverticulosis of large intestine without perforation or abscess without bleeding. - Condition is Stable. - Discharge Instructions: Diverticulosis, Soft-Food Meal Plan, Clear Liquid Diet, [id number]. - Prescriptions for Flagyl 500 mg Oral Tablet - take 1 tablet by ORAL route every 8 hours for 10 days; 30 tablet. Levaquin 500 mg Oral Tablet - take 1 tablet by ORAL route once daily for 10 days; 10 tablet. Zofran 4 mg Oral Tablet - take 1 tablet by ORAL route every 8 hours As needed; 20 tablet. Tramadol 50 mg Oral Tablet - take 1 tablet by ORAL route every 8 hours as needed; 12 tablet. - Work release form, Medication Reconciliation Form, Thank You Letter, Antibiotic Education, Prescription Opioid Use form. - Follow up: Abdon Simon MD; When: 10 - 14 days. - Problem is new. - Symptoms are resolved. Signatures: Dispatcher [employer] EDHank Gong MD MD rn Marinas, Patrick, LYDIA REWINDER OPERATOR HELPER pm1 Stephanie Elise RN RN tw2 Margarita Vance RN RN jl7 Melody Almanza MD MD rp3
--- NOTE | 2017-08-14 16:33 | ER ---
Nurse's Notes [facility] Name: Davonte Boucher Age: 46 yrs Sex: Male : 1970 Arrival Date: 08/14/2017 Time: 12:56 Bed 14 Private MD: Diagnosis: Diverticulosis of large intestine without perforation or abscess without bleeding Presentation: 08/14 13:18 Presenting complaint: Patient states: "my stomach is still killing me, i was here tw2 yesterday, i got all of them and i threw up today". Transition of care: patient was not received from another setting of care. Onset of symptoms was August 14, 2017. Initial Sepsis Screen: Does the patient meet any 2 criteria? No. Patient's initial sepsis screen is negative. Does the patient have a suspected source of infection? No. Patient's initial sepsis screen is negative. Care prior to arrival: None. 13:18 Method Of Arrival: Ambulatory tw2 13:18 Acuity: PADMINI 3 tw2 Historical: - Allergies: 13:19 NKA; tw2 - Home Meds: 13:19 None [Active]; tw2 - PMHx: 13:19 None; tw2 - PSHx: 13:19 None; tw2 - Immunization history:: Adult Immunizations up to date. - Social history:: Smoking status: Patient uses tobacco products, smokes one pack cigarettes per day. Patient uses alcohol, only on a social basis. Screenin:30 Abuse screen: Denies threats or abuse. Denies injuries from another. Nutritional jl7 screening: No deficits noted. Tuberculosis screening: No symptoms or risk factors identified. Fall Risk IV access (20 points). Total Flaherty Fall Scale indicates No Risk (0-24 pts). Assessment: 13:20 General: Appears in no apparent distress. uncomfortable, Behavior is cooperative. Pain: jl7 Complains of pain in suprapubic area and right lower quadrant Pain does not radiate. Pain currently is 8 out of 10 on a pain scale. Quality of pain is described as "It just hurts." Is continuous. Neuro: Level of Consciousness is awake, alert, obeys commands, Oriented to person, place, time, situation. Cardiovascular: Heart tones S1 S2 present Patient's skin is warm and dry. Respiratory: Airway is patent Respiratory effort is even, unlabored, Respiratory pattern is regular, symmetrical, Breath sounds are clear bilaterally. GI: Abdomen is round non-distended, Bowel sounds present X 4 quads. Abd is soft and non tender X 4 quads. Reports lower abdominal pain. : No signs and/or symptoms were reported regarding the genitourinary system. EENT: No signs and/or symptoms were reported regarding the EENT system. Derm: Skin is dry, Skin is normal, Skin temperature is warm. Musculoskeletal: No signs and/or symptoms reported regarding the musculoskeletal system. 14:00 Reassessment: No changes from previously documented assessment. Patient and/or family jl7 updated on plan of care and expected duration. Pain level reassessed. Patient is alert, oriented x 3, equal unlabored respirations, skin warm/dry/pink. 15:00 Reassessment: Pt laying in bed with eyes closed, respiration even and unlabored, no jl7 signs of distress noted at this time. 15:10 Reassessment: Pt reports the pain remains the same, provider notified, no new orders jl7 received at this time. Pt requesting to eat, instructed not to eat. Apple juice provided. Pt able to keep apple juice down. 16:00 Reassessment: Pt laying in bed with eyes closed, respirations even and unlabored, no jl7 signs of distress noted at this time. 16:20 Reassessment: Dr. Almanza at bedside. jl7 Vital Signs: 13:20 BP 104 / 77; Pulse 84; Resp 18; Temp 98.3(O); Pulse Ox 97% on R/A; Weight 99.79 kg (R); tw2 Height 5 ft. 8 in. (172.72 cm); Pain 10/10; 14:00 BP 120 / 79; Pulse 62; Resp 16; Pulse Ox 99% ; Pain 8/10; jl7 15:00 BP 126 / 80; Pulse 65; Resp 16; Pulse Ox 99% ; jl7 15:52 BP 129 / 86; Pulse 56; Resp 14; Pulse Ox 100% ; Pain 8/10; jl7 16:30 BP 120 / 75; Pulse 60; Resp 16; Pulse Ox 99% ; jl7 13:20 Body Mass Index 33.45 (99.79 kg, 172.72 cm) tw2 ED Course: 12:56 Patient arrived in ED. rg4 13:18 Arm band placed on. tw2 13:19 Triage completed. tw2 13:25 Margarita Vance RN is Primary Nurse. jl7 13:26 Hank Chery MD is Attending Physician. rn 13:28 Ezio Mejia NP is PHCP. pm1 14:30 Patient has correct armband on for positive identification. Bed in low position. Call jl7 light in reach. Side rails up X 1. Pulse ox on. NIBP on. Warm blanket given. 14:30 Inserted saline lock: 20 gauge in left antecubital area, using aseptic technique. jl7 15:30 Initial lab(s) drawn, by me, sent to lab. jl7 16:31 Melody Almanza MD pediatric urologist. rp3 16:31 Abdon Simon MD is Referral Physician. rp3 16:50 No provider procedures requiring assistance completed. IV discontinued, intact, jl7 bleeding controlled, No redness/swelling at site. Pressure dressing applied. Administered Medications: 14:36 Drug: Phenergan 12.5 mg Route: IVP; Site: left antecubital; jl7 15:10 Follow up: Response: No adverse reaction jl7 14:36 Drug: NS 0.9% 1000 ml Route: IV; Rate: 1000 ml; Site: left antecubital; jl7 15:30 Follow up: IV Status: Completed infusion jl7 14:38 Drug: morphine 4 mg Route: IVP; Site: left antecubital; jl7 15:10 Follow up: Response: No adverse reaction; Pain is unchanged, physician notified jl7 Outcome: 16:32 Discharge ordered by MD. rp3 16:50 Discharged to home ambulatory. jl7 16:50 Condition: stable 16:50 Discharge instructions given to patient, Instructed on discharge instructions, follow up and referral plans. medication usage, Demonstrated understanding of instructions, follow-up care, medications, Prescriptions given X 4. 16:53 Patient left the ED. jl7 Signatures: Hank Chery MD MD rn Marinas, Patrick, NP INFORMATION TECHNOLOGY INSTRUCTOR pm1 Stephanie Elise RN RN tw2 Radha Parrish rg4 Margarita Vance RN RN jl7 Melody Almanza MD MD rp3 Corrections: (The following items were deleted from the chart) 15:57 15:10 Reassessment: Pt reports the pain remains the same, provider notified, no new jl7 orders received at this time. jl7
[2017-08-14 16:58] VITALS: TEMP 98.3
[2017-08-14 17:06] VITALS: BP 120/75; O2SAT 99
== END 2017-08-14 16:53 | disposition home or self-care (01) ==
LOC: ER 12:53
DX: K57.30 Diverticulosis of large intestine without perforation or abscess without bleeding (principal); F17.210 Nicotine dependence, cigarettes, uncomplicated
CPT/HCPCS: 36415; 80048; 80076; 83690; 85025; 96361; 96374; 96375; 99284; J2550; J7030

== ENCOUNTER 2017-08-16 17:42 | Observation (INO) | payer SELFPAY ==
[2017-08-16] MEDS ORDERED: MORPHINE 4 MG/ML SYR ONE ×2 (18:44→21:29)
[2017-08-16] MEDS ORDERED: ONDANSETRON 4 MG/2 ML VIAL ONE (18:44)
[2017-08-16] MEDS ORDERED: PANTOPRAZOLE 40 MG INJ ONE (18:44)
[2017-08-16 19:15] LABS: Absolute Lymphocytes (CBC) 1.5 K/uL (0.7-4.9); Absolute Monocytes 0.4 K/uL (0.1-1.3); Absolute Neutrophil 2.7 K/uL (1.8-8.0); Basophils % 1.4 % (0-1.3); Eosinophils % 1.7 % (0-4.4); Hematocrit 44.1 % (39.6-49.0); Lymphocytes % 31.9 % (15.3-44.8); MCH 29.9 pg (27.0-35.0); MCV 92.3 fL (80-100); MPV 9.3 fL (7.6-11.3); Monocytes % 7.7 % (3.3-12.3); RBC Red Blood Cell Count 4.78 M/uL (4.33-5.43)
[2017-08-16 19:19] LABS: Protime INR 1.13
[2017-08-16 19:33] LABS: ALT/SGPT 28 IU/L (10-60); AST/SGOT 21 IU/L (10-42); Albumin 3.9 g/dL (3.2-5.5); Alkaline Phosphatase 43 IU/L (42-121); Amylase Level 84 U/L (28-100); BUN Blood Urea Nitrogen 17 mg/dL (6-20); Bicarbonate 29 mEq/L (21-31); Bilirubin Direct 0.1 mg/dL (0-0.2); CKMB Creatine Kinase MB 1.1 ng/ml (0.3-4.0); Creatine Phosphokinase 117 IU/L (22-269); Glucose Level 99 mg/dL (65-120); Magnesium 1.6 mg/dL (1.8-2.5); Potassium 3.7 mEq/L (3.6-5.0); Protein, Total 6.6 g/dL (6.0-8.3); Sodium Level 139 mEq/L (135-145)
[2017-08-16 19:51] LABS: Lipase < 10 U/L (22-51)
--- NOTE | 2017-08-16 21:00 | RAD REPORT ---
EXAM DESCRIPTION: CT - Abdomen Pelvis W Contrast - 08/16/2017 8:43 pm CLINICAL HISTORY: Abdominal pain. Right pelvic pain COMPARISON: August 13, 2017and 2011 TECHNIQUE: Computed axial tomography of the abdomen and pelvis was obtained. 100 cc Isovue-300 is ad ministered intravenously. Oral contrast was given. All CT scans are performed using dose optimization technique as appropriate and may include automated exposure control or mA/KV adjustment according to patient size. FINDINGS: A 32 millimeter low-density lesion is present within the right lobe of liver. It demonstrates periphe ral enhancement. Spleen, pancreas, adrenals and kidneys appear unremarkable. The appendix is normal caliber. The lumen of the mid sigmoid colon appears narrowed. Diverticula are noted. Mild stranding is seen wi thin the adjacent fat Spondylosis involves lumbar spine resulting spinal stenosis IMPRESSION: Narrowing of the lumen of the sigmoid colon with mild stranding in the adjacent fat may indicate a mild diverticulitis. Neoplasm can also have this appearance. Direct visualization is recom mended 32 millimeter low-density lesion within the right lobe of the liver has enlarged since more remote ex ams. Most likely represents a hemangioma. This should be confirmed with an MRI with contrast and maribel yed imaging
[2017-08-16] MEDS ORDERED: DICYCLOMINE HCL 10 MG CAP ONE (21:07)
[2017-08-16] MEDS ORDERED: Magnesium Sulfate 2gm IVPB 2 G/50 ML BAG IV ONE (21:08)
--- NOTE | 2017-08-16 21:25 | RAD REPORT ---
EXAM DESCRIPTION: Richelle Single View08/16/2017 7:00 pm CLINICAL HISTORY: Chest pain COMPARISON: none FINDINGS: The lungs appear clear of acute infiltrate. The heart is borderline enlarged IMPRESSION: No acute abnormalities displayed
--- NOTE | 2017-08-16 21:32 | EDPHYS ---
Physician Documentation [facility] Name: Davonte Boucher Age: 46 yrs Sex: Male : 1970 Arrival Date: 08/16/2017 Time: 17:43 Bed 7 Private MD: ED Physician Rufino Gomez HPI: 08/16 18:00 This 46 yrs old Black Male presents to ER via EMS with complaints of Near Syncope, cp Possible GI bleed. 18:00 The patient has experienced syncope. cp 18:00 Onset: The symptoms/episode began/occurred today. cp 18:00 Associated injury: The patient did not suffer any apparent associated injury. Current cp symptoms: lower abdomen pain. Patient returns to ED with c/o of worsening lower abdomen pain. Patient recently diagnosed with diverticulitis and has been taking prescribed Levaquin and flagyl. Patient reports pain increased today causing him to "pass out". Historical: - Allergies: 18:35 NKA; sg - PMHx: 18:59 Diverticulitis; Hypertension; sg 19:01 GI Bleed; sg - PSHx: 18:35 None; sg - Immunization history:: Adult Immunizations unknown. - Social history:: Smoking status: Patient/guardian denies using tobacco. ROS: 18:15 Constitutional: Negative for body aches, chills, fever, poor PO intake. cp 18:15 Eyes: Negative for injury, pain, redness, and discharge. cp 18:15 ENT: Negative for drainage from ear(s), ear pain, sore throat, difficulty swallowing, difficulty handling secretions. 18:15 Cardiovascular: Negative for chest pain, edema, palpitations. 18:15 Respiratory: Negative for cough, shortness of breath, wheezing. 18:15 Abdomen/GI: Positive for abdominal pain, rectal bleeding, Negative for vomiting, diarrhea, constipation. 18:15 : Negative for urinary symptoms. 18:15 Skin: Negative for cellulitis, rash. 18:15 Neuro: Positive for loss of consciousness, Negative for altered mental status, headache, seizure activity, weakness. 18:15 All other systems are negative. Exam: 18:20 Constitutional: The patient appears in no acute distress, alert, awake, cp non-diaphoretic, non-toxic, well developed, well nourished, uncomfortable. 18:20 Head/Face: Normocephalic, atraumatic. cp 18:20 Eyes: Periorbital structures: appear normal, Pupils: equal, round, and reactive to light and accomodation, Extraocular movements: intact throughout, Conjunctiva: normal, no exudate, no injection, Sclera: no appreciated abnormality, Lids and lashes: appear normal, bilaterally. 18:20 ENT: External ear(s): are unremarkable, Nose: is normal, Mouth: Lips: moist, Oral mucosa: moist, Posterior pharynx: is normal, airway is patent, no erythema, no exudate. 18:20 Neck: ROM/movement: is normal, is supple, without pain, no range of motions limitations, no meningismus, no nuchal rigidity. 18:20 Chest/axilla: Inspection: normal, Palpation: is normal, no crepitus, no tenderness. 18:20 Cardiovascular: Rate: tachycardic, Rhythm: regular, Heart sounds: murmur, not appreciated, rub, not appreciated, gallop, not appreciated, Edema: is not appreciated, JVD: is not appreciated. 18:20 Respiratory: the patient does not display signs of respiratory distress, Respirations: normal, no use of accessory muscles, no retractions, no splinting, no tachypnea, labored breathing, is not present, Breath sounds: are clear throughout, no decreased breath sounds, no stridor, no wheezing. 18:20 Abdomen/GI: Inspection: abdomen appears normal, Bowel sounds: active, all quadrants, Palpation: soft, in all quadrants, moderate abdominal tenderness, in the right lower quadrant and left lower quadrant, rebound tenderness, is not appreciated, involuntary guarding, is not appreciated, Rectal exam: rectal tone normal, Stool: brown, guaiac negative, hemorrhoid(s), are not appreciated. Vital Signs: 18:00 BP 127 / 82; Pulse 100; Resp 18; Temp 98.2; Pulse Ox 97% on R/A; Pain 10/10; sg 19:29 BP 130 / 92; Pulse 57; Resp 16; Temp 98.3; Pulse Ox 100% on R/A; Pain 4/10; ak1 21:44 BP 113 / 86; Pulse 60; Resp 18; Temp 98.2; Pulse Ox 97% on R/A; Pain 3/10; ak1 22:26 Weight 104.33 kg (R); Height 6 ft. 2 in. (187.96 cm) (R); [facility] 08/17 00:00 BP 110 / 84; Pulse 60; Resp 18; Temp 98.1; Pulse Ox 97% on R/A; Pain 2/10; ak1 08/16 22:26 Body Mass Index 29.53 (104.33 kg, 187.96 cm) [facility] MDM: 08/16 17:56 Patient medically screened. cp 19:00 Differential Diagnosis: cardiac arrhythmia, cerebrovascular accident, drug effect, GI cp bleed, vasovagal episode. 21:28 Data reviewed: vital signs, nurses notes, lab test result(s), EKG, radiologic studies, cp CT scan. Test interpretation: by ED physician or midlevel provider: ECG, plain radiologic studies. 21:28 Physician consultation: Radha Mariee MD was called at 21:28, was contacted at 21:28, cp regarding admission, to the medical/surgical unit. patient's condition. 08/16 17:59 Order name: Basic Metabolic Panel; Complete Time: 21:02 08/16 21:02 Interpretation: Normal except: GFR 84. 08/16 17:59 Order name: BNP; Complete Time: 21:02 08/16 17:59 Order name: CBC with Diff; Complete Time: 19:41 08/16 19:41 Interpretation: Normal except: WBC 4.6; BASO% 1.4. 08/16 17:59 Order name: Ckmb; Complete Time: 21:02 08/16 17:59 Order name: CPK; Complete Time: 21:02 08/16 17:59 Order name: LFT's; Complete Time: 21:02 08/16 21:02 Interpretation: Reviewed. 08/16 17:59 Order name: Magnesium; Complete Time: 21:02 08/16 21:02 Interpretation: Abnormal: MG 1.6. 08/16 17:59 Order name: PT-INR; Complete Time: 19:41 08/16 19:41 Interpretation: Normal except: PT 13.4. 08/16 17:59 Order name: Ptt, Activated; Complete Time: 19:41 08/16 17:59 Order name: Troponin (emerg Dept Use Only); Complete Time: 19:41 sv 08/16 19:41 Interpretation: TROPED < 0.03; Reviewed. cp 08/16 17:59 Order name: Amylase, Serum; Complete Time: 21:02 sv 08/16 17:59 Order name: Creatinine for Radiology; Complete Time: 19:41 sv 08/16 17:59 Order name: Lipase; Complete Time: 21:02 sv 08/16 21:02 Interpretation: LIP < 10; Reviewed. cp 08/16 17:59 Order name: Urine Microscopic Only; Complete Time: 22:43 sv 08/16 17:59 Order name: XRAY Chest (1 view); Complete Time: 22:43 sv 08/16 17:59 Order name: EKG; Complete Time: 18:00 sv 08/16 17:59 Order name: Cardiac monitoring; Complete Time: 18:42 sv 08/16 17:59 Order name: EKG - Nurse/Tech; Complete Time: 18:55 sv 08/16 17:59 Order name: IV Saline Lock; Complete Time: 18:42 sv 08/16 17:59 Order name: Type And Screen; Complete Time: 22:43 sv 08/16 18:46 Order name: CT Abd/Pelvis - W/Contrast: give oral contrast; Complete Time: 21:02 cp 08/16 21:23 Order name: Urine Dipstick--Ancillary (enter results); Complete Time: 22:43 em1 08/16 22:43 Interpretation: Normal except: UBLD TRACE. cp 08/16 17:59 Order name: Labs collected and sent; Complete Time: 18:42 sv 08/16 17:59 Order name: O2 Per Protocol; Complete Time: 18:42 sv 08/16 17:59 Order name: O2 Sat Monitoring; Complete Time: 18:42 sv 08/16 17:59 Order name: Urine Dipstick-Ancillary (obtain specimen); Complete Time: 21:23 sv 08/16 22:01 Order name: NPO; Complete Time: 22:03 cp Administered Medications: 18:54 Drug: morphine 4 mg Route: IVP; Site: right forearm; sg 20:09 Follow up: Response: No adverse reaction ak1 18:54 Drug: Zofran 4 mg Route: IVP; Site: right forearm; sg 20:08 Follow up: Response: No adverse reaction ak1 18:54 Drug: ProTONIX 40 mg Route: IVP; Site: right forearm; sg 20:08 Follow up: Response: No adverse reaction ak1 21:24 Not Given (new orders from Edinson Ulrich): Bentyl 20 mg PO once ak1 21:24 Drug: Magnesium Sulfate 2 grams Route: IVPB; Infused Over: 2 hrs; Site: right forearm; ak1 22:12 Follow up: IV Status: Completed infusion ak1 21:32 Drug: morphine 4 mg Route: IVP; Site: right forearm; ak1 21:47 Follow up: Response: No adverse reaction ak1 22:02 Drug: D5-1/2 NS 1000 ml Route: IV; Rate: 100 ml/hr; Site: right forearm; ak1 22:25 Follow up: IV Status: Infusion continued upon admission ak1 22:12 Drug: Ativan 1 mg Route: IVP; Site: right forearm; ak1 22:25 Follow up: Response: No adverse reaction ak1 Disposition: 08/16/17 21:31 Hospitalization ordered by Radha Mariee for Observation. Preliminary diagnosis is Diverticulitis of intestine, part unspecified, without perforation or abscess with bleeding. - Bed requested for Telemetry/MedSurg (observation). - Status is Observation. ak1 - Condition is Stable. - Problem is an ongoing problem. - Symptoms have improved. UTI on Admission? No Addendum: 08/19/2017 18:59 Co-signature as Attending Physician, Rufino Gomez MD. g s Signatures: Dispatcher [employer] [facility] Mini South RN RN Chava Rausch RN RN Coni Rivera RN RN ak Jose Malhotra PA PA cp Garcia, Cindy, RN RN Rufino Gomez MD MD Corrections: (The following items were deleted from the chart) 08/16 19:41 19:41 Normal except: WBC 4.6. cp cp
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
[2017-08-16 21:52] LABS: Urine Blood TRACE (NEG); Urine Glucose NEGATIVE (NEG); Urine Protein NEGATIVE (NEG); Urine pH 6.5 (5.0-7.0)
[2017-08-16] MEDS ORDERED: D5 0.45 NS 1,000 ML IV ONE (22:01)
[2017-08-16] MEDS ORDERED: LORazepam 2 MG/ML VIAL ONE (22:10)
[2017-08-16 22:31] LABS: Urine Bacteria <20 /HPF (NONE SEEN); Urine RBC <5 /HPF (NONE SEEN)
[2017-08-16 22:32] LABS: Urine Culture Reflex Order NOT NEEDED
[2017-08-16] MEDS ORDERED: ONDANSETRON 4 MG/2 ML VIAL IV PRN (22:40)
[2017-08-16] MEDS ORDERED: ACETAMINOPHEN 500 MG TAB PO PRN (22:40)
[2017-08-16] MEDS ORDERED: MORPHINE 2 MG/ML SYR IV PRN (22:40)
[2017-08-16] MEDS ORDERED: Levofloxacin500mg IV 500 MG/100 ML BAG IV SCH (23:00)
[2017-08-16 23:23] VITALS: BMI 29.5
[2017-08-16] MEDS ORDERED: MORPHINE 4 MG/ML SYR IV PRN (23:35)
[2017-08-17] MEDS: METRONIDAZOLE 500mg IVPB 500 MG/100 ML BAG IV SCH ×2 (01:02→05:39)
[2017-08-17] MEDS: NA CHLORIDE 0.9% 1,000 ML IV SCH ×2 (01:02→08:28)
[2017-08-17 01:10] VITALS: O2SAT 97
[2017-08-17] MEDS: Morphine 2 MG/2 ML SYR IV PRN ×2 (02:24→08:28)
[2017-08-17 05:31] LABS: Absolute Lymphocytes (CBC) 2.1 K/uL (0.7-4.9); Absolute Monocytes 0.5 K/uL (0.1-1.3); Absolute Neutrophil 2.4 K/uL (1.8-8.0); Basophils % 0.8 % (0-1.3); Eosinophils % 4.1 % (0-4.4); Hematocrit 42.3 % (39.6-49.0); Lymphocytes % 40.3 % (15.3-44.8); MCH 30.3 pg (27.0-35.0); MPV 9.1 fL (7.6-11.3); Monocytes % 9.6 % (3.3-12.3); RBC Red Blood Cell Count 4.55 M/uL (4.33-5.43)
--- NOTE | 2017-08-17 05:40 | P.HP ---
Certification for Inpatient Patient admitted to: Observation With expected LOS: <2 Midnights Patient will require the following post-hospital care: None Practitioner: I am a practitioner with admitting privileges, knowledge of patient current condition, hospital course, and medical plan of care. Services: Services provided to patient in accordance with Admission requirements found in Title 42 Section 412.3 of the Code of Federal Regulations Patient History Date of Service: 08/16/17 Reason for admission: Diverticulitis History of Present Illness: Pt is a 46yo who was admitted to the hospital with abdominal pain. Patient states he has had similar issues yearly. He has had colonoscopy which revealed diverticulum. He always has similar pain. Is around the left lower quadrant and he states the diverticulitis is around the sigmoid region. Patient was found to have acute diverticulitis. Patient will be admitted for IV antibiotics. Patient will need outpatient colonoscopy in 6-12 weeks. Allergies NKDA Allergy (Uncoded 08/17/17 00:50) Unknown No Known Allergies Allergy (Uncoded 08/17/17 00:54) Unknown Home Medications: Acetaminophen with Codeine [Acetaminophen-Cod #3 Tablet] 2 tab PO Q6HR 08/17/17 Clindamycin HCl 2 cap PO TID 08/17/17 - Past Medical/Surgical History Diabetic: No -: diverticulitis -: hypertension -: GI bleed Past Surgical History: Patient denies surgical history - Family History Father Family History: Reviewed- Non-Contributory - Social History Smoking Status: Unknown if ever smoked Alcohol use: No CD- Drugs: No Place of Residence: Home Review of Systems 10-point ROS is otherwise unremarkable Physical Examination - Vital Signs Temperature: 97.3 F Blood Pressure: 118/68 Pulse: 51 Respirations: 18 Pulse Ox (%): 98 - Physical Exam General: Alert, In no apparent distress, Oriented x3 HEENT: Atraumatic, PERRLA, Mucous membr. moist/pink, EOMI, Sclerae nonicteric Neck: Supple, 2+ carotid pulse no bruit, No LAD, Without JVD or thyroid abnormality Respiratory: Clear to auscultation bilaterally, Normal air movement Cardiovascular: Regular rate/rhythm, Normal S1 S2, No murmurs Gastrointestinal: Normal bowel sounds, Soft and benign, Non-distended, No rebound, No guarding, Tenderness Musculoskeletal: No clubbing, No swelling, No tenderness Integumentary: No rashes Neurological: Normal gait, Normal speech, Normal strength at 5/5 x4 extr, Normal tone, Sensation intact, Cranial nerves 3-12 intact, Normal affect Lymphatics: No axilla or inguinal lymphadenopathy - Studies Laboratory Data (last 24 hrs) 08/16/17 18:20: Creatinine 1.11 08/16/17 18:20: PT 13.4 H, INR 1.13, APTT 27.8 08/16/17 18:20: WBC 4.6 D, Hgb 14.3, Hct 44.1, Plt Count 220 08/16/17 18:20: B-Natriuretic Peptide < 10 08/16/17 18:20: Sodium 139, Potassium 3.7, BUN 17, Creatinine 1.14, Glucose 99, Magnesium 1.6 L, Total Bilirubin 1.0, AST 21, ALT 28, Alkaline Phosphatase 43, Amylase 84, Lipase < 10 L Assessment & Plan - Problems (Diagnosis) (1) Acute diverticulitis of intestine Current Visit: Yes Status: Acute (2) HTN (hypertension) Current Visit: Yes Status: Acute Qualifiers: Hypertension type: essential hypertension Qualified Code(s): I10 - Essential (primary) hypertension - Plan Plan: 1. Continue with IV hydration 2. Continue with IV antibiotics 3. Continue with pain control 4. NPO 5. GI consultation; outpatient colonoscopy in 6-12 weeks 6. Serial H&H, and we will monitor CBC, BMP, LFTs and lipase along with electrolytes. 7. GI and DVT prophylaxis Discharge Plan: Home Plan to discharge in: 48 Hours - Advance Directives Does patient have a Living Will: No Does patient have a Durable POA for Healthcare: No - Code Status/Comfort Care Code Status Assessed: Yes Code Status: Full Code Critical Care: No Time Spent Managing PTS Care (In Minutes): 50
[2017-08-17 05:41] LABS: Albumin 3.5 g/dL (3.2-5.5); Bilirubin Total 1.2 mg/dL (0.3-1.2); Protein, Total 5.9 g/dL (6.0-8.3)
[2017-08-17 09:49] VITALS: BP 116/76; TEMP 97.8
--- NOTE | 2017-08-17 13:56 | P.DS ---
Admission Date: 08/16/17 Discharge Date: 08/17/17 Disposition: ROUTINE DISCHARGE Reason for Admission: Diverticulitis - Problems (1) Acute diverticulitis of intestine Onset Date: 08/17/17 Status: Acute (2) HTN (hypertension) Onset Date: 08/17/17 Status: Acute Qualifiers: Hypertension type: essential hypertension Qualified Code(s): I10 - Essential (primary) hypertension (3) Liver hemangioma Status: Acute Brief History of Present Illness: Pt is a 46yo who was admitted to the hospital with abdominal pain. Patient states he has had similar issues yearly. He has had colonoscopy which revealed diverticulum. He always has similar pain. Is around the left lower quadrant and he states the diverticulitis is around the sigmoid region. Patient was found to have acute diverticulitis. Patient will be admitted for IV antibiotics. Patient will need outpatient colonoscopy in 6-12 weeks. Hospital Course: Overall during the hospital stay patient remained stable Patient was initially admitted to the hospital for mild diverticulitis with abdominal pain and nausea and vomiting. Patient was seen here in the ER 2 days ago with similar complaints and was discharged home from the ER after having a detailed conversation regarding dietary changes and antibiotics. 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 Patient had filled up 3 different pain prescription from 3 different doctors once he was discharged home from here in the ER. This hospitalization patient complain of having some abdominal pain along with nausea and vomiting this is admitted for IV antibiotics. Patient had IV antibiotics here in the hospital and had marked improvement resolution of his nausea vomiting along with the abdominal pain. Patient was advanced to a clear liquid diet which she tolerated well and was switched over to p.o. antibiotics ciprofloxacin and Flagyl. Patient again was educated extensively the family members at bedside regarding dietary changes, increase fluid consumption, narcotic abuse potential, any reasoning for fiber in diet. Patient was then discharged home under stable condition and was asked to follow up with GI in about 6 weeks for a followup colonoscopy. While here in the hospital when the patient had an abdominal CT he was also found to have liver lesion which was consistent with hemangioma. Patient was asked to follow up with his outpatient with his primary care doctor and agreed with the plan. Vital Signs/Physical Exam: Temp Pulse Resp BP Pulse Ox 97.8 F 57 16 116/76 98 08/17/17 08:00 08/17/17 08:00 08/17/17 08:00 08/17/17 08:00 08/17/17 08:00 General: Alert, In no apparent distress, Oriented x3 HEENT: Atraumatic, PERRLA, EOMI Neck: Supple, JVD not distended Respiratory: Clear to auscultation bilaterally, Normal air movement Cardiovascular: Regular rate/rhythm, Normal S1 S2 Gastrointestinal: Normal bowel sounds, No tenderness Musculoskeletal: No tenderness Integumentary: No rashes Neurological: Normal speech, Normal tone, Normal affect Lymphatics: No axilla or inguinal lymphadenopathy Laboratory Data at Discharge: WBC 5.3 K/uL (4.3-10.9) D 08/17/17 04:39 Hgb 13.8 g/dL (13.6-17.9) 08/17/17 04:39 Hct 42.3 % (39.6-49.0) 08/17/17 04:39 Plt Count 211 K/uL (152-406) 08/17/17 04:39 PT 13.4 SECONDS (9.5-12.5) H 08/16/17 18:20 INR 1.13 08/16/17 18:20 APTT 27.8 SECONDS (24.3-36.9) 08/16/17 18:20 Sodium 137 mEq/L (135-145) 08/17/17 04:39 Potassium 4.0 mEq/L (3.6-5.0) 08/17/17 04:39 BUN 13 mg/dL (6-20) 08/17/17 04:39 Creatinine 1.19 mg/dL (0.61-1.24) 08/17/17 04:39 Glucose 75 mg/dL (65-120) 08/17/17 04:39 Magnesium 1.6 mg/dL (1.8-2.5) L 08/16/17 18:20 Total Bilirubin 1.2 mg/dL (0.3-1.2) 08/17/17 04:39 AST 18 IU/L (10-42) 08/17/17 04:39 ALT 26 IU/L (10-60) 08/17/17 04:39 Alkaline Phosphatase 40 IU/L (42-121) L 08/17/17 04:39 B-Natriuretic Peptide < 10 pg/ml (<=100) 08/16/17 18:20 Triglycerides 114 mg/dL (35-160) 08/17/17 04:39 Cholesterol 126 mg/dL (<200) 08/17/17 04:39 HDL Cholesterol 36 mg/dL (27-67) 08/17/17 04:39 Cholesterol/HDL Ratio 3.50 08/17/17 04:39 Amylase 84 U/L (28-100) 08/16/17 18:20 Lipase < 10 U/L (22-51) L 08/16/17 18:20 Home Medications: Acetaminophen with Codeine [Acetaminophen-Cod #3 Tablet] 2 tab PO Q6HR 08/17/17 Ciprofloxacin HCl [Cipro 500 MG Tablet] 500 mg PO DAILY #10 tab 08/17/17 Clindamycin HCl 2 cap PO TID 08/17/17 Docusate [Colace Cap*] 100 mg PO DAILY #15 cap 08/17/17 Metronidazole [Flagyl*] 500 mg PO Q8H #30 tablet 08/17/17 New Medications: Ciprofloxacin HCl [Cipro 500 MG Tablet] 500 mg PO DAILY #10 tab Docusate [Colace Cap*] 100 mg PO DAILY #15 cap Metronidazole [Flagyl*] 500 mg PO Q8H #30 tablet
--- NOTE | 2017-08-17 16:29 | EKG ---
Test Date: 2017-08-16 Test Time: 17:41:58 Retirement Actuary: CARLOZ MEASUREMENT RESULTS: Intervals: Rate: 64 [place]: 132 QRSD: 92 QT: 376 QTc: 387 [place]: P: 36 [place]: 132 QRS: 41 T: 5 INTERPRETIVE STATEMENTS: Normal sinus rhythm Cannot rule out Anterior infarct, age undetermined Abnormal ECG Compared to ECG 08/13/2017 09:19:27 Myocardial infarct finding now present Sinus bradycardia no longer present Electronically Signed On 08-17-17 16:24:02 CDT by Demetri Shirley
== END 2017-08-17 10:23 | disposition home or self-care (01) ==
LOC: ER 17:42 → ERHOLD 21:31 → 2ND 08-17 00:20 → INTOOBSV 08-17 07:38 → OBSVTOIN 08-17 07:38
PROVIDERS: ADMIT Hospitalist; ATTEND Hospitalist
DX: K57.32 Diverticulitis of large intestine without perforation or abscess without bleeding (principal); I10 Essential (primary) hypertension; D18.09 Hemangioma of other sites
CPT/HCPCS: 36415; 71045; 74177; 80048; 80053; 80061; 80076; 81003; 81015; 82150; 82550; 82553; 82962; 83690; 83735; 83880; 84484; 85025; 85610; 85730; 86850; 86900; 86901; 93005; 96365; 96375; 99285; C9113; G0378; J2270; J2405; J3475; J7030; Q9967

== ENCOUNTER 2017-10-19 09:37 | Emergency (ER) | payer SELFPAY ==
[2017-10-19] MEDS ORDERED: LIDOCAINE VISCOUS 2% SOLN 15 ML UDC ONE (10:04)
[2017-10-19] MEDS ORDERED: MAGNE/ALUM HYDROXD 30 ML UCUP ONE (10:04)
[2017-10-19 10:18] LABS: Absolute Lymphocytes (CBC) 1.4 K/uL (0.7-4.9); Absolute Monocytes 0.3 K/uL (0.1-1.3); Basophils % 0.6 % (0-1.3); Eosinophils % 0.8 % (0-4.4); Hematocrit 43.5 % (39.6-49.0); Lymphocytes % 23.5 % (15.3-44.8); MCH 30.7 pg (27.0-35.0); MCV 91.2 fL (80-100); MPV 8.3 fL (7.6-11.3); Monocytes % 5.8 % (3.3-12.3); RBC Red Blood Cell Count 4.77 M/uL (4.33-5.43)
--- NOTE | 2017-10-19 11:01 | RAD REPORT ---
EXAM DESCRIPTION: Richelle Single View10/19/2017 10:28 am CLINICAL HISTORY: Chest pain COMPARISON: July 2017 FINDINGS: The lungs appear clear of acute infiltrate. The heart is borderline enlarged Mild prominence of the mediastinum is unchanged IMPRESSION: No acute abnormalities displayed
--- NOTE | 2017-10-19 11:02 | EDPHYS ---
Physician Documentation [facility] Name: Davonte Boucher Age: 47 yrs Sex: Male : 1970 Arrival Date: 10/19/2017 Time: 09:39 Bed 17 Private MD: None, None ED Physician Hank Chery HPI: 10/19 10:16 This 47 yrs old Black Male presents to ER via Ambulatory with complaints of Chest Pain, rn Vomiting. 10:16 The patient or guardian reports chest pain that is located primarily in the anterior rn chest wall. Onset: last night. The pain does not radiate. Associated signs and symptoms: Pertinent positives: cough, nausea, vomiting. The chest pain is described as sharp, stabbing. Duration: The patient or guardian reports multiple episodes, that are intermittent. Modifying factors: The symptoms are alleviated by nothing. the symptoms are aggravated by nothing. Severity of pain: At its worst the pain was mild in the emergency department the pain has improved. The patient has experienced similar episodes in the past. Reports chest pain, sharp/stabbing, began with acid reflux and nausea/vomiting, + cough, + smokes, not worse with exertion. No previous IL. . Historical: - Allergies: 09:59 NKA; sv - PMHx: 09:59 Diverticulitis; GI Bleed; Hypertension; sv - PSHx: 09:59 None; sv - Immunization history:: Adult Immunizations up to date. - Social history:: Smoking status: Patient uses tobacco products, smokes one-half pack cigarettes per day. - Family history:: not pertinent. - Ebola Screening: : No symptoms or risks identified at this time. - Hospitalizations: : No recent hospitalization is reported. ROS: 10:16 Constitutional: Negative for fever, chills, and weight loss, Neck: Negative for injury, rn pain, and swelling, Cardiovascular: Negative for palpitations, and edema, Respiratory: Negative for wheezing Abdomen/GI: Negative for abdominal pain, diarrhea, and constipation, MS/Extremity: Negative for injury and deformity, Skin: Negative for injury, rash, and discoloration, Neuro: Negative for headache, weakness, numbness, tingling, and seizure. Exam: 10:16 Constitutional: This is a well developed, well nourished patient who is awake, alert, rn and in no acute distress. Head/Face: Normocephalic, atraumatic. Eyes: Pupils equal round and reactive to light, extra-ocular motions intact. Lids and lashes normal. Conjunctiva and sclera are non-icteric and not injected. Cornea within normal limits. Periorbital areas with no swelling, redness, or edema. Neck: Trachea midline, no thyromegaly or masses palpated, and no cervical lymphadenopathy. Supple, full range of motion without nuchal rigidity, or vertebral point tenderness. No Meningismus. Cardiovascular: Regular rate and rhythm with a normal S1 and S2. No gallops, murmurs, or rubs. Normal PMI, no JVD. No pulse deficits. Respiratory: Lungs have equal breath sounds bilaterally, clear to auscultation and percussion. No rales, rhonchi or wheezes noted. No increased work of breathing, no retractions or nasal flaring. Abdomen/GI: Soft, non-tender, with normal bowel sounds. No distension or tympany. No guarding or rebound. No evidence of tenderness throughout. MS/ Extremity: Pulses equal, no cyanosis. Neurovascular intact. Full, normal range of motion. Equal circumference. Neuro: Awake and alert, GCS 15, oriented to person, place, time, and situation. Cranial nerves II-XII grossly intact. Motor strength 5/5 in all extremities. Sensory grossly intact. Cerebellar exam normal. Normal gait. Vital Signs: 09:58 BP 135 / 94; Pulse 63; Resp 15; Temp 98.0(TE); Pulse Ox 97% on R/A; Weight 104.33 kg; ss Height 5 ft. 9 in. (175.26 cm); Pain 0/10; 10:51 BP 147 / 93; Pulse 60; Resp 15; Pulse Ox 96% ; mh5 11:21 BP 146 / 94; Pulse 78; Resp 16; Pulse Ox 99% on R/A; Pain 0/10; em 09:58 Body Mass Index 33.96 (104.33 kg, 175.26 cm) ss MDM: 09:50 Patient medically screened. rn 11:00 Differential diagnosis: acute myocardial infarction, acute pericarditis, anxiety, rn costochondritis, esophagitis, gastritis, gastroesophageal reflux disease (GERD), pleurisy, pneumothorax. Data reviewed: vital signs, nurses notes, lab test result(s), EKG, radiologic studies, plain films, and as a result, I will discharge patient. Counseling: I had a detailed discussion with the patient and/or guardian regarding: the historical points, exam findings, and any diagnostic results supporting the discharge/admit diagnosis, lab results, radiology results, the need for outpatient follow up, to return to the emergency department if symptoms worsen or persist or if there are any questions or concerns that arise at home. Medication response: GI Cocktail relieved the patient's pain. The symptoms have resolved. Response to treatment: the patient's symptoms have markedly improved after treatment, and as a result, I will discharge patient. Special discussion: Based on the patient's history, exam, and Dx evaluation, there is no indication for emergent intervention or inpatient Tx. It is understood by the patient/guardian that if the Sx's persist or worsen they need to return immediately for re-evaluation. I discussed with the patient/guardian in detail that at this point there is no indication for admission to the hospital. It is understood, however, that if the symptoms persist or worsen the patient needs to return immediately for re-evaluation. 10/19 09:57 Order name: CBC with Diff; Complete Time: 10:20 10/19 09:57 Order name: Basic Metabolic Panel; Complete Time: 10:59 10/19 09:57 Order name: Troponin (emerg Dept Use Only); Complete Time: 10:59 10/19 09:57 Order name: EKG; Complete Time: 09:58 10/19 09:57 Order name: XRAY Chest (1 view); Complete Time: 11:02 10/19 09:57 Order name: IV Start; Complete Time: 09:58 rn 10/19 09:57 Order name: EKG - Nurse/Tech; Complete Time: 10:18 rn Administered Medications: 10:11 Drug: GI Cocktail without - (Maalox Suspension 30 ml, Lidocaine Liquid 2 % 15 em ml) Route: PO; 11:06 Follow up: Response: No adverse reaction em Disposition: 10/19/17 11:02 Discharged to Home. Impression: Chest pain, unspecified, Gastro-esophageal reflux disease. - Condition is Stable. - Discharge Instructions: Nonspecific Chest Pain, Gastroesophageal Reflux Disease, Adult, Pleurisy. - Medication Reconciliation Form, Thank You Letter, Antibiotic Education, Prescription Opioid Use form. - Follow up: Private Physician; When: As needed; Reason: Recheck today's complaints, Re-evaluation by your physician. - Problem is new. - Symptoms have improved. Signatures: Dispatcher [employer] Mini Pierce, RN RN Rivera Puga, SAND TESTER SAND TESTER em Hank Chery MD MD rn Corrections: (The following items were deleted from the chart) 11:21 11:02 10/19/2017 11:02 Discharged to Home. Impression: Chest pain, unspecified; em Gastro-esophageal reflux disease. Condition is Stable. Forms are Medication Reconciliation Form, Thank You Letter, Antibiotic Education, Prescription Opioid Use. Follow up: Private Physician; When: As needed; Reason: Recheck today's complaints, Re-evaluation by your physician. Problem is new. Symptoms have improved. rn
--- NOTE | 2017-10-19 11:02 | ER ---
Nurse's Notes [facility] Name: Davonte Boucher Age: 47 yrs Sex: Male : 1970 Arrival Date: 10/19/2017 Time: 09:39 Bed 17 Private MD: None, None Diagnosis: Chest pain, unspecified;Gastro-esophageal reflux disease Presentation: 10/19 09:50 Presenting complaint: Patient states: chest pain that started about an hour ago after sv coughing and then started having reflux. Described as a sharp pain, pain comes on "depending on what he's doing." Pt took ASA 81 mg. Transition of care: patient was not received from another setting of care. Onset of symptoms was October 19, 2017 at 09:00. Care prior to arrival: None. 09:50 Method Of Arrival: Ambulatory sv 09:50 Acuity: PADMINI 3 sv 10:20 Risk Assessment: Do you want to hurt yourself or someone else? Patient reports no em desire to harm self or others. Initial Sepsis Screen: Does the patient meet any 2 criteria? No. Patient's initial sepsis screen is negative. Does the patient have a suspected source of infection? No. Patient's initial sepsis screen is negative. Triage Assessment: 10:19 General: Appears in no apparent distress. comfortable, Behavior is calm, cooperative. em Pain: Denies pain. Cardiovascular: Reports nausea, Heart tones S1 S2 present Capillary refill < 3 seconds Patient's skin is warm and dry. Historical: - Allergies: 09:59 NKA; sv - PMHx: 09:59 Diverticulitis; GI Bleed; Hypertension; sv - PSHx: 09:59 None; sv - Immunization history:: Adult Immunizations up to date. - Social history:: Smoking status: Patient uses tobacco products, smokes one-half pack cigarettes per day. - Family history:: not pertinent. - Ebola Screening: : No symptoms or risks identified at this time. - Hospitalizations: : No recent hospitalization is reported. Screenin:19 Abuse screen: Denies threats or abuse. Nutritional screening: No deficits noted. em Tuberculosis screening: No symptoms or risk factors identified. Fall Risk None identified. Assessment: 10:10 General: Appears in no apparent distress. comfortable, Behavior is calm, cooperative, em Reports epigastric pain that started about an hour ago with N/V, currently denies pain. Pain: Denies pain. Complains of pain in epigastric area Pain does not radiate. Pain began 1 hour ago. Neuro: Level of Consciousness is awake, alert, obeys commands, Oriented to person, place, time, situation. Cardiovascular: Reports nausea, vomiting, Denies diaphoresis, shortness of breath, Heart tones S1 S2 present Capillary refill < 3 seconds Rhythm is sinus rhythm. Respiratory: Airway is patent Respiratory effort is even, unlabored, Respiratory pattern is regular, symmetrical. GI: Abdomen is round non-distended. : No signs and/or symptoms were reported regarding the genitourinary system. Derm: Skin is intact, Skin is normal. Musculoskeletal: Range of motion: intact in all extremities. 10:15 General: The previous assessment is accurate, call light remains within reach. . ss 11:15 Reassessment: Patient appears in no apparent distress at this time. Patient and/or em family updated on plan of care and expected duration. Pain level reassessed. Patient is alert, oriented x 3, equal unlabored respirations, skin warm/dry/pink. Patient denies pain at this time. Patient states symptoms have improved. Vital Signs: 09:58 BP 135 / 94; Pulse 63; Resp 15; Temp 98.0(TE); Pulse Ox 97% on R/A; Weight 104.33 kg; Height 5 ft. 9 in. (175.26 cm); Pain 0/10; 10:51 BP 147 / 93; Pulse 60; Resp 15; Pulse Ox 96% ; mh5 11:21 BP 146 / 94; Pulse 78; Resp 16; Pulse Ox 99% on R/A; Pain 0/10; em 09:58 Body Mass Index 33.96 (104.33 kg, 175.26 cm) ED Course: 09:39 Patient arrived in ED. sb2 09:39 None, None is Private Physician. sb2 09:50 Hank Chery MD is Attending Physician. rn 09:58 Rivera Puga LVN is Primary Nurse. em 09:58 Triage completed. sv 09:58 Arm band placed on right wrist. ss 10:10 Initial lab(s) drawn, by me, sent to lab. Inserted saline lock: 22 gauge in left mh5 antecubital area, using aseptic technique. Blood collected. 10:11 Patient has correct armband on for positive identification. Bed in low position. Call mh5 light in reach. Side rails up X 1. Adult w/ patient. Warm blanket given. color television console monitor on. Pulse ox on. NIBP on. 10:18 No provider procedures requiring assistance completed. EKG done, by ED staff, reviewed em by Hank Chery MD. Patient maintains SpO2 saturation greater than 95% on room air. 10:25 X-ray completed. Portable x-ray completed in exam room. Patient tolerated procedure ag1 well. 10:25 XRAY Chest (1 view) In Process Unspecified. EDMS 11:20 IV discontinued, intact, bleeding controlled, No redness/swelling at site. Pressure em dressing applied. Administered Medications: 10:11 Drug: GI Cocktail without - (Maalox Suspension 30 ml, Lidocaine Liquid 2 % 15 em ml) Route: PO; 11:06 Follow up: Response: No adverse reaction em Outcome: 11:02 Discharge ordered by MD. rn 11:20 Discharged to home ambulatory, with family. em 11:20 Condition: good 11:20 Discharge instructions given to patient, Instructed on discharge instructions, follow up and referral plans. Demonstrated understanding of instructions, follow-up care. 11:21 Patient left the ED. em Signatures: Dispatcher [employer] EDMini Whiting, RN RN Rivera Tolliver, WELDING MACHINE OPERATOR HELPER GAS WELDING MACHINE OPERATOR HELPER GAS em Hank Chery MD MD rn Smirch, Shelby, RN RN ss Gallaway, Ashley ag1 Mckenzie Goins mh5 Anne Mcgowan sb2
[2017-10-19 11:25] VITALS: TEMP 98
[2017-10-19 11:27] VITALS: BP 146/94; O2SAT 99
--- NOTE | 2017-10-19 17:25 | EKG ---
Test Date: 2017-10-19 Test Time: 10:14:56 Blockmason: DEE DEE MEASUREMENT RESULTS: Intervals: Rate: 63 CT: 130 QRSD: 102 QT: 386 QTc: 395 [place]: P: 28 CT: 130 QRS: 17 T: 29 INTERPRETIVE STATEMENTS: Normal sinus rhythm Possible Anterior infarct, age undetermined Abnormal ECG Compared to ECG 08/16/2017 17:41:58 No significant changes Electronically Signed On 10-19-17 17:24:48 CDT by Missael Millard
== END 2017-10-19 11:21 | disposition home or self-care (01) ==
LOC: ER 09:37
DX: R07.9 Chest pain, unspecified (principal); K21.9 Gastro-esophageal reflux disease without esophagitis; R11.10 Vomiting, unspecified; I10 Essential (primary) hypertension
CPT/HCPCS: 36415; 71045; 80048; 84484; 85025; 93005; 99285

== ENCOUNTER 2018-12-03 11:48 | Emergency (ER) | payer SELFPAY ==
--- NOTE | 2018-12-03 12:14 | ER ---
Nurse's Notes [facility] Name: Davonte Boucher Age: 48 yrs Sex: Male : 1970 Arrival Date: 12/03/2018 Time: 11:51 Bed 23 Private MD: None, None Diagnosis: Chest pain, unspecified;Unspecified strain or sprain of chest wall Presentation: 12/03 12:04 Presenting complaint: Patient states: I been having chest pain on the left side since ca1 Sunday last week after I lifted a barrel full of water. I have been taking muscle relaxants but it's not helping. Transition of care: patient was not received from another setting of care. Onset of symptoms was December 03, 2018. Risk Assessment: Do you want to hurt yourself or someone else? Patient reports no desire to harm self or others. Initial Sepsis Screen: Does the patient meet any 2 criteria? No. Patient's initial sepsis screen is negative. Does the patient have a suspected source of infection? No. Patient's initial sepsis screen is negative. Care prior to arrival: None. 12:04 Method Of Arrival: Wheelchair ca1 12:04 Acuity: PADMINI 3 ca1 Historical: - Allergies: 12:06 NKA; ca1 - Home Meds: 12:06 None [Active]; ca1 - PMHx: 12:06 Diverticulitis; GI Bleed; Hypertension; ca1 - PSHx: 12:06 None; ca1 - Immunization history:: Adult Immunizations not up to date. - Social history:: Smoking status: Patient uses tobacco products, smokes one-half pack cigarettes per day. - Ebola Screening: : Patient negative for fever greater than or equal to 101.5 degrees Fahrenheit, and additional compatible Ebola Virus Disease symptoms Patient denies exposure to infectious person Patient denies travel to an Ebola-affected area in the 21 days before illness onset No symptoms or risks identified at this time. - Family history:: not pertinent. - Hospitalizations: : No recent hospitalization is reported. Screenin:08 Abuse screen: Denies threats or abuse. Denies injuries from another. Nutritional ca1 screening: No deficits noted. Tuberculosis screening: No symptoms or risk factors identified. Fall Risk None identified. Assessment: 12:08 General: Appears in no apparent distress. comfortable, Behavior is calm, cooperative, ca1 appropriate for age. Pain: Complains of pain in chest Pain does not radiate. Pain currently is 9 out of 10 on a pain scale. Quality of pain is described as sharp, Pain began a week ago. Neuro: Level of Consciousness is awake, alert, obeys commands, Oriented to person, place, time, situation. Cardiovascular: Heart tones S1 S2 present Capillary refill < 3 seconds Patient's skin is warm and dry. Cardiovascular: Rhythm is sinus rhythm. Respiratory: Airway is patent Respiratory effort is even, unlabored, Respiratory pattern is regular, symmetrical. GI: Abdomen is round non-distended, Bowel sounds present X 4 quads. Abd is soft and non tender X 4 quads. : No deficits noted. No signs and/or symptoms were reported regarding the genitourinary system. EENT: No deficits noted. No signs and/or symptoms were reported regarding the EENT system. Derm: Skin is intact, is healthy with good turgor, Skin is pink, warm \T\ dry. Musculoskeletal: Circulation, motion, and sensation intact. Capillary refill < 3 seconds, Range of motion: intact in all extremities. Vital Signs: 12:06 BP 151 / 86; Pulse 81; Resp 15 S; Temp 97.7(O); Pulse Ox 100% on R/A; Weight 108.86 kg ca1 (R); Height 5 ft. 9 in. (175.26 cm) (R); Pain 9/10; 12:06 Body Mass Index 35.44 (108.86 kg, 175.26 cm) ca1 ED Course: 11:51 Patient arrived in ED. dl4 11:52 None, None is Private Physician. dl4 11:54 Hank Chery MD is Attending Physician. rn 12:00 Kayley Sood, MARTY is Primary Nurse. ca1 12:05 Triage completed. ca1 12:06 Arm band placed on. EKG completed in triage. Results shown to MD. ca1 12:08 Patient has correct armband on for positive identification. Placed in gown. Bed in low ca1 position. Call light in reach. Side rails up X 1. monitoring coordinator on. Pulse ox on. NIBP on. Warm blanket given. 12:08 No provider procedures requiring assistance completed. Patient maintains SpO2 ca1 saturation greater than 95% on room air. 12:09 EKG done, by mobile sales technician. reviewed by Hank Chery MD. sm3 12:24 Patient did not have IV access during this emergency room visit. ca1 Administered Medications: No medications were administered Outcome: 12:11 Discharge ordered by . rn 12:24 Discharged to home ambulatory. ca1 12:24 Condition: stable 12:24 Discharge instructions given to patient, Instructed on discharge instructions, follow up and referral plans. medication usage, Demonstrated understanding of instructions, follow-up care, medications, Prescriptions given X 2. 12:24 Patient left the ED. ca1 Signatures: Hank Chery MD MD rn Asuncion Rosales 3 Gage Phillips dl4 Kayley Sood RN RN ca1
--- NOTE | 2018-12-03 12:16 | EDPHYS ---
Physician Documentation [facility] Name: Davonte Boucher Age: 48 yrs Sex: Male : 1970 Arrival Date: 12/03/2018 Time: 11:51 Bed 23 Private MD: None, None ED Physician Hank Chery HPI: 12/03 12:03 This 48 yrs old Black Male presents to ER via Unassigned with complaints of Chest Pain. rn 12:03 The patient or guardian reports chest pain that is located primarily in the anterior rn chest wall. The patient or guardian reports chest pain that is located primarily in the anterior chest wall, left. Onset: 1 week(s) ago. The pain does not radiate. Associated signs and symptoms: Pertinent positives: None. Pertinent negatives: abdominal pain, cough, diaphoresis, lightheadedness, palpitations, shortness of breath, syncope, vomiting. The chest pain is described as aching. Modifying factors: The symptoms are alleviated by nothing. the symptoms are aggravated by movement, palpation of area. Severity of pain: At its worst the pain was moderate in the emergency department the pain is unchanged. The patient has not experienced similar symptoms in the past. The patient has been recently seen by a physician:. Reports left anterior/lateral chest wall pain, began 1 week ago, felt pain immediately after lifting water-filled barrel. Went to [place] when it happened, states told him heart was fine and was strained muscle. Given muscle relaxer and states not helping. Pain worse with moving left arm and movement. . Historical: - Allergies: 12:06 NKA; ca1 - Home Meds: 12:06 None [Active]; ca1 - PMHx: 12:06 Diverticulitis; GI Bleed; Hypertension; ca1 - PSHx: 12:06 None; ca1 - Immunization history:: Adult Immunizations not up to date. - Social history:: Smoking status: Patient uses tobacco products, smokes one-half pack cigarettes per day. - Ebola Screening: : Patient negative for fever greater than or equal to 101.5 degrees Fahrenheit, and additional compatible Ebola Virus Disease symptoms Patient denies exposure to infectious person Patient denies travel to an Ebola-affected area in the 21 days before illness onset No symptoms or risks identified at this time. - Family history:: not pertinent. - Hospitalizations: : No recent hospitalization is reported. ROS: 12:03 Constitutional: Negative for fever, chills, and weight loss, Eyes: Negative for injury, rn pain, redness, and discharge, Neck: Negative for injury, pain, and swelling, Cardiovascular: Negative for palpitations, and edema, Respiratory: Negative for shortness of breath, cough, wheezing, and pleuritic chest pain, Abdomen/GI: Negative for abdominal pain, nausea, vomiting, diarrhea, and constipation, MS/Extremity: Negative for injury and deformity, Skin: Negative for injury, rash, and discoloration, Neuro: Negative for headache, weakness, numbness, tingling, and seizure. Exam: 12:03 Constitutional: This is a well developed, well nourished patient who is awake, alert, rn and in no acute distress. Head/Face: Normocephalic, atraumatic. Chest/axilla: Normal chest wall appearance, no rash or lesions, + tender left anterior/lateral chest wall, painful ROM left shoulder Cardiovascular: Regular rate and rhythm with a normal S1 and S2. No gallops, murmurs, or rubs. Normal PMI, no JVD. No pulse deficits. Respiratory: No increased work of breathing, no retractions or nasal flaring. Abdomen/GI: soft, non-tender MS/ Extremity: Pulses equal, no cyanosis. Neurovascular intact. Full, normal range of motion. Equal circumference. Neuro: Awake and alert, GCS 15, oriented to person, place, time, and situation. Cranial nerves II-XII grossly intact. Motor strength 5/5 in all extremities. Sensory grossly intact. Cerebellar exam normal. Normal gait. 12:03 ECG was reviewed by the Attending Physician. rn Vital Signs: 12:06 BP 151 / 86; Pulse 81; Resp 15 S; Temp 97.7(O); Pulse Ox 100% on R/A; Weight 108.86 kg ca1 (R); Height 5 ft. 9 in. (175.26 cm) (R); Pain 9/10; 12:06 Body Mass Index 35.44 (108.86 kg, 175.26 cm) ca1 MDM: 11:55 Patient medically screened. rn 12:03 Differential diagnosis: chest wall pain, muscle strain, muscle tear, sprain. Data rn reviewed: vital signs, nurses notes, EKG, and as a result, I will discharge patient. 12:03 Counseling: I had a detailed discussion with the patient and/or guardian regarding: the rn historical points, exam findings, and any diagnostic results supporting the discharge/admit diagnosis, the need for outpatient follow up, to return to the emergency department if symptoms worsen or persist or if there are any questions or concerns that arise at home. Special discussion: I discussed with the patient/guardian in detail that at this point there is no indication for admission to the hospital. It is understood, however, that if the symptoms persist or worsen the patient needs to return immediately for re-evaluation. ED course: Pt with reproducible chest wall pain after lifting something heavy, and ahs had negative w/u. He is requesting pain meds and change to muscle relaxer. . EC:03 Rate is 79 beats/min. Rhythm is regular. QRS [place] is Normal. ID interval is normal. QRS rn interval is normal. QT interval is normal. No Q waves. T waves are Normal. No ST changes noted. Clinical impression: NSR w/ Non-specific ST/T Changes. Interpreted by me. Reviewed by me. Administered Medications: No medications were administered Disposition: 12/03/18 12:11 Discharged to Home. Impression: Chest pain, unspecified, Unspecified strain or sprain of chest wall. - Condition is Stable. - Discharge Instructions: Chest Wall Pain, Muscle Strain. - Prescriptions for Tylenol- Codeine #3 300-30 mg Oral Tablet - take 1 tablet by ORAL route every 6 hours As needed; 20 tablet. Cyclobenzaprine 10 mg Oral Tablet - take 1 tablet by ORAL route every 8 hours As needed; 20 tablet. - Medication Reconciliation Form, Thank You Letter, Antibiotic Education, Prescription Opioid Use form. - Follow up: Private Physician; When: As needed; Reason: Recheck today's complaints, Re-evaluation by your physician. - Problem is new. - Symptoms have improved. Signatures: Hank Chery MD MD rn Acob, MARTY Zaldivar RN ca1 Corrections: (The following items were deleted from the chart) 12:24 12:11 12/03/2018 12:11 Discharged to Home. Impression: Chest pain, unspecified; ca1 Unspecified strain or sprain of chest wall. Condition is Stable. Forms are Medication Reconciliation Form, Thank You Letter, Antibiotic Education, Prescription Opioid Use. Follow up: Private Physician; When: As needed; Reason: Recheck today's complaints, Re-evaluation by your physician. Problem is new. Symptoms have improved. rn
[2018-12-03 12:35] VITALS: BP 151/86; TEMP 97.7; O2SAT 100
--- NOTE | 2018-12-03 15:59 | EKG ---
Test Date: 2018-12-03 Test Time: 12:00:26 Orchestra Musician: LYSSA MEASUREMENT RESULTS: Intervals: Rate: 79 [place]: 116 QRSD: 100 QT: 362 QTc: 415 [place]: P: 51 [place]: 116 QRS: 73 T: 3 INTERPRETIVE STATEMENTS: Normal sinus rhythm Cannot rule out Anterior infarct, age undetermined Abnormal ECG Compared to ECG 10/19/2017 10:14:56 No significant changes Electronically Signed On 12-03-18 15:58:05 CDT by Demetri Shirley
== END 2018-12-03 12:24 | disposition home or self-care (01) ==
LOC: ER 11:48
DX: S29.011A Strain of muscle and tendon of front wall of thorax, initial encounter (principal); X50.0XXA Overexertion from strenuous movement or load, initial encounter; I10 Essential (primary) hypertension; F17.210 Nicotine dependence, cigarettes, uncomplicated
CPT/HCPCS: 93005; 99284

== ENCOUNTER 2019-07-05 07:56 | Emergency (ER) | payer SELFPAY ==
--- NOTE | 2019-07-05 09:40 | RAD REPORT ---
EXAM DESCRIPTION: RAD - Knee Left 3 View - 07/05/2019 9:25 am CLINICAL HISTORY: PAIN COMPARISON: No comparisons FINDINGS: No fracture, dislocation or periosteal reaction.Trace amount of joint fluid present. No kishan int space narrowing. No soft tissue abnormality. IMPRESSION: Trace amount of fluid in the joint space. No acute bone finding. Clinical concerns for internal derangement or occult bony injury could be further assessed with MR im aging.
[2019-07-05] MEDS ORDERED: IBUPROFEN 200 MG TAB PO ONE (10:41)
--- NOTE | 2019-07-05 11:06 | EDPHYS ---
Physician Documentation [facility] Name: Davonte Boucher Age: 48 yrs Sex: Male : 1970 Arrival Date: 07/05/2019 Time: 07:58 Bed 25 Private MD: ED Physician Jose Fontenot HPI: 07/04 10:17 This 48 yrs old Black Male presents to ER via Ambulatory with complaints of Knee Pain. safia 10:17 The patient presents with decreased range of motion, pain, that is acute. The safia complaints affect the medial aspect of left knee. Context: The problem was sustained at an unknown site. Onset: The symptoms/episode began/occurred 2 day(s) ago. Modifying factors: The symptoms are alleviated by remaining still, the symptoms are aggravated by nothing. Associated signs and symptoms: The patient has no apparent associated signs or symptoms. Severity of symptoms: At their worst the symptoms were mild, moderate, in the emergency department the symptoms are unchanged. Historical: - Allergies: 08:36 NKA; ss - PMHx: 08:36 Diverticulitis; GI Bleed; Hypertension; ss - Immunization history:: Adult Immunizations up to date. - Social history:: Smoking status: Patient denies any tobacco usage or history of. . - Family history:: not pertinent. ROS: 10:17 Constitutional: Negative for fever, chills, and weight loss, Eyes: Negative for injury, safia pain, redness, and discharge, ENT: Negative for injury, pain, and discharge, Neck: Negative for injury, pain, and swelling, Cardiovascular: Negative for chest pain, palpitations, and edema, Respiratory: Negative for shortness of breath, cough, wheezing, and pleuritic chest pain, Abdomen/GI: Negative for abdominal pain, nausea, vomiting, diarrhea, and constipation, Back: Negative for injury and pain, : Negative for injury, bleeding, discharge, and swelling, Skin: Negative for injury, rash, and discoloration, Neuro: Negative for headache, weakness, numbness, tingling, and seizure, Psych: Negative for depression, anxiety, suicide ideation, homicidal ideation, and hallucinations, Allergy/Immunology: Negative for hives, rash, and allergies, Endocrine: Negative for neck swelling, polydipsia, polyuria, polyphagia, and marked weight changes, Hematologic/Lymphatic: Negative for swollen nodes, abnormal bleeding, and unusual bruising. 10:17 MS/extremity: Positive for decreased range of motion, pain, swelling, of the medial aspect of left knee. Exam: 10:17 Constitutional: This is a well developed, well nourished patient who is awake, alert, safia and in no acute distress. Head/Face: Normocephalic, atraumatic. Eyes: Pupils equal round and reactive to light, extra-ocular motions intact. Lids and lashes normal. Conjunctiva and sclera are non-icteric and not injected. Cornea within normal limits. Periorbital areas with no swelling, redness, or edema. ENT: Nares patent. No nasal discharge, no septal abnormalities noted. Tympanic membranes are normal and external auditory canals are clear. Oropharynx with no redness, swelling, or masses, exudates, or evidence of obstruction, uvula midline. Mucous membranes moist. Neck: Trachea midline, no thyromegaly or masses palpated, and no cervical lymphadenopathy. Supple, full range of motion without nuchal rigidity, or vertebral point tenderness. No Meningismus. Chest/axilla: Normal chest wall appearance and motion. Nontender with no deformity. No lesions are appreciated. Cardiovascular: Regular rate and rhythm with a normal S1 and S2. No gallops, murmurs, or rubs. Normal PMI, no JVD. No pulse deficits. Respiratory: Lungs have equal breath sounds bilaterally, clear to auscultation and percussion. No rales, rhonchi or wheezes noted. No increased work of breathing, no retractions or nasal flaring. Abdomen/GI: Soft, non-tender, with normal bowel sounds. No distension or tympany. No guarding or rebound. No evidence of tenderness throughout. Back: No spinal tenderness. No costovertebral tenderness. Full range of motion. Male : Normal genitalia with no discharge or lesions. Skin: Warm, dry with normal turgor. Normal color with no rashes, no lesions, and no evidence of cellulitis. Neuro: Awake and alert, GCS 15, oriented to person, place, time, and situation. Cranial nerves II-XII grossly intact. Motor strength 5/5 in all extremities. Sensory grossly intact. Cerebellar exam normal. Normal gait. Psych: Awake, alert, with orientation to person, place and time. Behavior, mood, and affect are within normal limits. 10:17 Musculoskeletal/extremity: DVT Exam: negative Homans' sign noted on exam, no appreciated bluish discoloration, no erythema, no increased warmth, pain, swelling, tenderness. Vital Signs: 08:34 BP 136 / 94; Pulse 78; Resp 18; Temp 98.9(TE); Pulse Ox 97% on R/A; Weight 117.93 kg; ss Height 5 ft. 9 in. (175.26 cm); Pain 10; 08:34 Body Mass Index 38.39 (117.93 kg, 175.26 cm) MDM: 09:57 Patient medically screened. [facility] 10:19 Data reviewed: vital signs, nurses notes, radiologic studies, plain films, ultrasound. [facility] 07/04 09:08 Order name: Knee Left 3 View XRAY; Complete Time: 11:06 07/04 10:16 Order name: US Extremity Venous Unilateral Ltd [facility] Administered Medications: 10:43 Drug: Motrin 600 mg Route: PO; dm5 11:19 Follow up: Response: No adverse reaction; Pain is unchanged, physician notified 11:19 Drug: [place] 10 mg-325 mg 1 tabs Route: PO; 11:19 Follow up: Response: No adverse reaction; Medication administered at discharge. Disposition: 07/05/19 11:06 Discharged to Home. Impression: Pain in left knee. - Condition is Stable. - Discharge Instructions: Joint Pain, Musculoskeletal Pain, Knee Pain. - Prescriptions for Tylenol- Codeine #3 300-30 mg Oral Tablet - take 2 tablet by ORAL route every 6 hours As needed; 30 tablet. - Medication Reconciliation Form, Thank You Letter, Antibiotic Education, Prescription Opioid Use form. - Follow up: Private Physician; When: 2 - 3 days; Reason: Recheck today's complaints, Continuance of care, Re-evaluation by your physician. - Problem is new. - Symptoms have improved. Signatures: Dispatcher [employer] Kathy Carballo, RN RN dm5 Jose Fontenot MD MD cha Smirch, Shelby, RN RN ss Corrections: (The following items were deleted from the chart) 11:20 11:06 07/05/2019 11:06 Discharged to Home. Impression: Pain in left knee. Condition is ss Stable. Discharge Instructions: Joint Pain, Musculoskeletal Pain, Knee Pain. Prescriptions for Tylenol-Codeine #3 300-30 mg Oral Tablet - take 2 tablet by ORAL route every 6 hours As needed; 30 tablet. and Forms are Medication Reconciliation Form, Thank You Letter, Antibiotic Education, Prescription Opioid Use. Follow up: Private Physician; When: 2 - 3 days; Reason: Recheck today's complaints, Continuance of care, Re-evaluation by your physician. Problem is new. Symptoms have improved. safia
--- NOTE | 2019-07-05 11:06 | ER ---
Nurse's Notes [facility] Name: Davonte Boucher Age: 48 yrs Sex: Male : 1970 Arrival Date: 07/05/2019 Time: 07:58 Bed 25 Private MD: Diagnosis: Pain in left knee Presentation: 07/04 08:34 Chief complaint: Patient states: L knee pain x 2 weeks that began worse yesterday. Pt ss states, "I need an XRAY and some pain medicine. I know it's my ACL.". Coronavirus screen: The patient has NOT traveled to a country currently being monitored by the [facility] within the last 14 days. Proceed with normal triage procedures. Ebola Screen: Patient denies exposure to infectious person. Patient denies travel to an Ebola-affected area in the 21 days before illness onset. Initial Sepsis Screen: Does the patient meet any 2 criteria? No. Patient's initial sepsis screen is negative. Does the patient have a suspected source of infection? No. Patient's initial sepsis screen is negative. Risk Assessment: Do you want to hurt yourself or someone else? Patient reports no desire to harm self or others. 08:34 Method Of Arrival: Ambulatory ss 08:34 Acuity: PADMINI 4 ss Historical: - Allergies: 08:36 NKA; ss - PMHx: 08:36 Diverticulitis; GI Bleed; Hypertension; ss - Immunization history:: Adult Immunizations up to date. - Social history:: Smoking status: Patient denies any tobacco usage or history of. . - Family history:: not pertinent. Screenin:43 Abuse screen: Denies threats or abuse. Denies injuries from another. Nutritional dm5 screening: No deficits noted. Tuberculosis screening: Never had TB. Fall Risk None identified. Assessment: 09:57 General: Appears uncomfortable, Behavior is calm, cooperative. Pain: Complains of pain ss in medial aspect of left knee Pain currently is 10 out of 10 on a pain scale. Quality of pain is described as aching, tender, Is continuous. Neuro: Level of Consciousness is awake, alert, obeys commands, Oriented to person, place, time, situation. Respiratory: No deficits noted. Derm: Skin is intact, is healthy with good turgor, Skin is pink, warm \\T\\ dry. normal. Musculoskeletal: Circulation, motion, and sensation intact. Range of motion: intact in all extremities, Swelling absent. 10:43 Reassessment: Pt upset that all that has been ordered as far as medication goes was dm5 ibuprofen. Pt states, "I need that shot y' all gave me last time. This ibuprofen ain't gonna help. I've been taking Tylenol #3's all night and they didn't help either.". Vital Signs: 08:34 BP 136 / 94; Pulse 78; Resp 18; Temp 98.9(TE); Pulse Ox 97% on R/A; Weight 117.93 kg; ss Height 5 ft. 9 in. (175.26 cm); Pain 10/10; 08:34 Body Mass Index 38.39 (117.93 kg, 175.26 cm) ss ED Course: 07:58 Patient arrived in ED. mr 08:35 Triage completed. ss 08:36 Arm band placed on right wrist. ss 09:28 Knee Left 3 View XRAY In Process Unspecified. EDMS 09:57 Jose Fontenot MD is Attending Physician. [facility] 10:24 Germaine Bowman, MARTY is Primary Nurse. ss 10:43 Patient has correct armband on for positive identification. Bed in low position. Call dm5 light in reach. 10:55 Ultrasound completed. Patient tolerated well. sg3 10:56 US Extremity Venous Unilateral Ltd In Process Unspecified. EDMS 11:19 No provider procedures requiring assistance completed. Patient did not have IV access ss during this emergency room visit. Administered Medications: 10:43 Drug: Motrin 600 mg Route: PO; [facility] 11:19 Follow up: Response: No adverse reaction; Pain is unchanged, physician notified 11:19 Drug: [place] 10 mg-325 mg 1 tabs Route: PO; 11:19 Follow up: Response: No adverse reaction; Medication administered at discharge. Outcome: 11:06 Discharge ordered by . safia 11:19 Discharged to home ambulatory. 11:19 Condition: good 11:19 Discharge instructions given to patient, Instructed on discharge instructions, follow up and referral plans. medication usage, Demonstrated understanding of instructions, follow-up care, medications, Prescriptions given X 1. 11:20 Patient left the ED. Signatures: Dispatcher [employer] Kathy Carballo, MARTY RN dmJose Banks MD MD cha Rivera, Adriana mr Germaine Bowman, RN RN Minnie Whiting
[2019-07-05] MEDS ORDERED: HYDROCODONE/APAP 10/325 TAB ONE (11:17)
[2019-07-05 11:25] VITALS: BP 136/94; TEMP 98.9; O2SAT 97
--- NOTE | 2019-07-05 11:40 | RAD REPORT ---
EXAM DESCRIPTION: US - Extremity Venous Uni Ltd - 07/05/2019 10:56 am CLINICAL HISTORY: PAIN, left leg pain and swelling COMPARISON: None. TECHNIQUE: Real-time sonographic evaluation of the left lower extremity deep venous system was perfo rmed. FINDINGS: Normal compressibility, flow augmentation, phasic flow and spontaneous flow are identified in the left lower extremity common femoral, superficial femoral, popliteal and posterior tibial vein s. No intraluminal filling defects seen. IMPRESSION: No DVT in the left lower extremity.
== END 2019-07-05 11:20 | disposition home or self-care (01) ==
LOC: ER 07:56
DX: M25.562 Pain in left knee (principal)
CPT/HCPCS: 93971; 99283

== ENCOUNTER 2019-12-19 12:38 | Emergency (ER) | payer SELFPAY ==
--- OUTSIDE RECORDS SUMMARY | 2019-12-19 12:41 | XMS REPORT | Summary of Care ---
:1970 Author Organization [facility] Address [address] [place], [place] [address] Care Team Providers Name Role Phone Pcp, Does Not Have A Primary Care Provider Reason for Visit Reason Comments Knee Pain Left knee (Routine) Status Reason Specialty Diagnoses / Referred By Referred To Procedures Contact Contact Closed ORT-ORTHOPAEDIC Diagnoses left tear of meniscus of knee travel screening cleared Everett Chappell Robert SURGERY / Procedures CONSULT/REFERRAL ORTHOPAEDIC SURGERY NEW VISIT (FIRST TIME) MD Kristofer Miner MD [facility] [address] [place] [address] [place] [address] [place] [address] Phone: Fax: Encounter Details Date Type Department Care Team Description 10/09/[address] [facility] Everett Chappell Tear of med ia Orthopaedic Surgery- MD Kristofer meniscus of left [facility] [address] knee, unspecified [address] [facility] [place] [address] tear type, [place] [phone] unspecified whether [place], [place] [phone] old or current tear, [phone] initial encounter [phone] (Primary Dx) Allergies No Known Allergiesdocumented as of this encounter (statuses as of 10/10/2019) Medications No known medicationsdocumented as of this encounter (statuses as of 10/10/2019) Active Problems No known active problemsdocumented as of this encounter (statuses as of 10/10/2019) Social History Tobacco Use Types Packs/Day Years Used Date Never Assessed Sex Assigned at Date Recorded Not on file Job Start Date Occupation Industry Not on file Not on file Not on file Travel History Travel Start Travel End No recent travel history available. COVID-19 Exposure Response Date Recorded In the last month, have you been in contact with No / Unsure 10/09/2019 3:11 PM CDT someone who was confirmed or suspected to have Coronavirus / COVID-19? documented as of this encounter Last Filed Vital Signs Vital Sign Reading Time Taken Comments Blood Pressure 137/96 10/09/2019 3:12 PM CDT Pulse 91 10/09/2019 3:12 PM CDT Temperature 36.6 C (97.8 F) 10/09/2019 3:12 PM CDT Respiratory Rate - - Oxygen Saturation - - Inhaled Oxygen Concentration - - Weight 123.5 kg (272 lb 4.8 oz) 10/09/2019 3:12 PM CDT Height 177.8 cm (5' 10") 10/09/2019 3:12 PM CDT Body Mass Index 39.07 10/09/2019 3:12 PM CDT documented in this encounter Progress Notes Rodney Watters MD - 10/09/2019 3:50 PM CDT Ortho Clinic Note Date of Service: 10/09/2019 CC: Left knee pain HISTORY OF PRESENT ILLNESS Davonte Boucher is a 48 year old male with left knee pain. Patient reports knee pain has been going on for 2 months after he got his foot caught and had a twisting injury with immediate pain to themedial knee. He reports he had an MRI at [facility] and a medial meniscus tear was seen but he didn't have insurance at the time and was unable to have surgery. He does not have the disc with him. Pain is 8/10 and non radiating. Pain is characterized as sharp, achy worse when they bend their knee. Of note patient was insistent on Narcotic pain medication He is in a knee brace The pain is affecting their ADLs specifically being able to exercise and is negatively impacting their QoL. No fevers/chills, chest pain/SOB, nausea/vomiting, new numbness, tingling, weakness PMH - No past medical history on file. PSH - No past surgical history on file. Meds - No current outpatient medications on file prior to visit. No current facility-administered medications on file prior to visit. PFHx - No family history on file. Allergies - No Known Allergies Social History Tobacco Use Smoking status: Not on file Substance Use Topics Alcohol use: Not on file Drug use: Not on file Review of Systems General: (-) fever, (-) chills, (-) weight change Skin: (-) rash HEENT: (-) headache (-) change in vision Resp: (-) cough, (-) shortness of breath Cardio: (-) chest pain : (-) difficulties urinating MSK: See HPI, otherwise negative PHYSICAL EXAMINATIONS Ambulatory General: NAD, A&Ox3 Skin: no rashes Respiratory: Unlabored breathing Cardio: cap refill <2 secs in all extremities Knee Exam: Knee Alignment: normal Skin / Temperature: normal Effusion: none Atrophy: negative Muscle Tone: normal ROM- Extension: 0 Flexion: 120 SLR: intact Instability (Hard / Soft end Points): General Ligament Laxity Anterior (Lj's / Drawer): normal Varus (0/30): normal/normal Valgus (0/30): normal/normal Posterior (Lach / Drawer): normal Meniscal Exam: Joint Line Tenderness Medial: positive Joint Line Tenderness Lateral: negative Bel ( Sympt / Mech ): positive Bone Palpation: Medial Femoral Condyle: negative Lateral Femoral Condyle: negative Fibular Head: negative Patella Femoral Articulation: negative medial/lateral Tibial Plateau: negative medial/lateral Epicondyles: negative medial/lateral Tibial Tubercle: negative Adduction Tibial Tubercle: negative Neurovascular Status normal IMAGING- XR left knee No bony abnormality ASSESSMENT Davonte Boucher is a 48 year old male with left knee pain with concern for medial meniscus tear Plan/ Options: Discussed exam and imaging findings with patient. All questions answered to patient's satisfaction.Educated and advised patient on condition present. Advised patient to contact us with questions/concerns. Patient voiced understanding and agreement of plan Patient to bring disc to clinic Will discuss further intervention based on MRI results Ibuprofen 800mg for pain recommended. Patient was not interested WBAT in knee brace Continue WB in knee brace Rodney Watters PGY3 Orthopaedic Surgery 10/09/2019 4:15 PM documented in this encounter Plan of Treatment Date Type Specialty Care Team Description 10/16/2019 Office Visit Orthopedic Surgery Sergo Chappell MD [address] [facility] 109 [place] [address] [phone] Health Maintenance Due Date Last Done Comments DTaP,Tdap,and Td Vaccines (1 - 10/17/1982 Tdap) Depression Screening 1983 INFLUENZA VACCINE (Season Ended) 2019 PNEUMOCOCCAL 0-64 YEARS COMBINED Aged Out No longer eligible based on SERIES patient's age to complete this topic documented as of this encounter Results Not on filedocumented in this encounter Visit Diagnoses Diagnosis Tear of medial meniscus of left knee, un specified tear type, unspecified whether old or current tear, initial encounter - Verona casey documented in this encounter
--- OUTSIDE RECORDS SUMMARY | 2019-12-19 12:41 | XMS REPORT | Summary of Care ---
:1970 Author Organization [facility] Address [address] [place], [place] [address] Care Team Providers Name Role Phone Pcp, [...] MD Kristofer Miner MD [facility] [address] [facility] [address] [place] [address] [place] [address] Phone: Fax: Encounter Details Date Type Department Care Team Description 10/09/2019 Office Visit [facility] Everett Chappell Tear of med ia Orthopaedic Surgery- MD Kristofer meniscus of left [facility] [address] knee, unspecified [address] [facility] [address] tear type, [place] [phone] unspecified whether [place], [place] [phone] old or current tear, [phone] initial encounter [phone] (Primary Dx) Allergies No Known Allergiesdocumented as [...] Watters PGY3 Orthopaedic Surgery 10/09/2019 4:15 PM I performed a history and physical examination of the patient and discussed the patient's managementwith the resident's. I reviewed the resident's note and agree with the documented findings and planof care. In addition, I supervised any procedures or injections performed at this visit. - Davonte Boucher is a 48 year old male with history of twisting injury to the left knee and joint line tenderness concerning for meniscal pathology - x-rays demonstrate preserved joint spaces and per patient, [facility] MRI demonstrates a meniscal tear - will follow-up on images once CD received and will follow-up in 1 week to discuss treatment options. Everett Chappell MD Migratory Worker Orthopaedic Surgery 10/10/2019 9:41 AM documented in this encounter Plan of Treatment Date Type Specialty Care Team Description 10/16/2019 Office Visit Orthopedic Surgery Sergo Chappell MD [address] [place] [address] [facility] 109 [place] [phone] Health Maintenance Due Date Last Done Comments [...]
--- OUTSIDE RECORDS SUMMARY | 2019-12-19 12:41 | XMS REPORT | Continuity of Care Document ---
:1970 Author Organization [facility] t Address [address] [place] [address] [address] [place] [address] Care Team Providers Name Role Phone Ta WASSERMAN, Kristofer Attending Clinician Problems This patient has no known problems. Allergies, Adverse Reactions, Alerts This patient has no known allergies or adverse reactions. Medications This patient has no known medications. Procedures This patient has no known procedures. Encounters Start End Encounter Admission Attending Care Care Encounter Source Date/Time Date/Time Type Type Clinicians Facility Department ID 2019-12-09 2019-12-09 Office MALVIN Chappell [id number] 08:41:01 08:55:58 Visit [facility] [id number] Kristofer RO [id number] CENTER AT [id number] LEISA [address] [place] [address] Results This patient has no known results.
--- OUTSIDE RECORDS SUMMARY | 2019-12-19 12:41 | XMS REPORT | Summary of Care ---
:1970 Author Organization [facility] Address [address] [place] [address] Care Team Providers Name Role Phone Yanna Villalobos Primary Care Provider Reason for Visit Reason Comments Knee Pain left knee (Routine) Status Reason Specialty Diagnoses / Referred By Referred To Procedures Contact Contact Authorized ORT-ORTHOPAEDIC Diagnoses left tear of meniscus of knee travel screening cleared Everett Chappell Robert SURGERY / Procedures CONSULT/REFERRAL ORTHOPAEDIC SURGERY NEW VISIT (FIRST TIME) MD Kristofer Miner MD [facility] [address] [facility] [address] [facility] 109 [facility] 109 [place] [address] Phone: Fax: Encounter Details Date Type Department Care Team Description 10/16/2019 Office Visit [facility] Everett Chappell Tear of med ia Orthopaedic Surgery- MD Kristofer meniscus of left [facility] 400 [place] knee, unspecified 2[address] [facility] [address] tear type, [place] [phone] unspecified whether [place], [place] [phone] old or current tear, [phone] initial encounter [phone] (Primary Dx) Allergies No Known Allergiesdocumented as of this encounter (statuses as of 10/17/2019) Medications Medication Sig Dispensed Refills Start Date End Date Status traMADol 50 mg Take 1 tablet 20 tablet 0 10/16/2019 10/26/2019 Active tabletIndications: Tear by mouth every of medial meniscus of 6 (six) hours left knee, unspecified as needed for tear type, unspecified Pain (scale whether old or current 7-10) for up to tear, initial encounter 10 days. methocarbamol 500 mg Take 1 tablet 56 tablet 0 10/16/2019 07/0 12/2019 Active tabletIndications: Tear by mouth 4 of medial meniscus of (four) times left knee, unspecified daily for 14 tear type, unspecified days. whether old or current tear, initial encounter documented as of this encounter (statuses as of 10/17/2019) Active Problems No known active problemsdocumented as of this encounter (statuses as of 10/17/2019) Social History Tobacco Use Types Packs/Day Years [...] Sign Reading Time Taken Comments Blood Pressure - - Pulse - - Temperature 36.6 C (97.8 F) 10/16/2019 2:38 PM CDT Respiratory Rate - - Oxygen Saturation - - Inhaled Oxygen Concentration - - Weight 121.8 kg (268 lb 9.6 oz) 10/16/2019 2:38 PM CDT Height 177.8 cm (5' 10") 10/16/2019 2:38 PM CDT Body Mass Index 38.54 10/16/2019 2:38 PM CDT documented in this encounter Progress Notes Rodney Watters MD - 10/16/2019 2:30 PM CDT Ortho Clinic Note Date of [...] chest pain/SOB, nausea/vomiting, new numbness, tingling, weakness Interval History: 10/16/19 Patient here for f/u of left knee. He presents with MRI CD. He continues to have left knee pain withdysfunction and he would like to pursue more aggressive therapy PMH - No past medical history on [...] IMAGING- XR left knee No bony abnormality [facility] MRI left knee: Medial mensicus tear ASSESSMENT Davonte Boucher is a 48 year old male with left knee pain with medial meniscus tear Plan/ Options: Discussed exam and imaging findings with patient. All questions answered to patient's satisfaction.Educated and advised patient on condition present. Advised patient to contact us with questions/concerns. Patient voiced understanding and agreement of plan Discussed operative and non-operative measures Plan for OR: Left knee arthroscopy with medial meniscectomy S&N Time: 45 minutes I have offered and reviewed non operative measures as well as operative intervention. At this time he desires to pursue surgical care. Indications, operative risks, potential outcomes and benefits discussed and reviewed in detail. Operative risks discussed included but were not limited to infection, c ontinued pain, increasing pain, no improvement, scarring, stiffness, loss of motion, need for lengthy rehabilitation in the postoperative phases, worsening of the condition, need for revision and/or further surgical care, fracture of bone, loosening of prosthesis or implants either in the short-term or long- term, compromise to life and/or limb, bleeding, blood clots, compartment syndrome issues, transfusion risks, allograft risks, potential injury to associated structures which may include nerve, vessel, muscle, tendon, ligament, and/or bone or cartilage which may result in loss of muscle strength, changes or losses in sensation, and/or limb dysfunction or deformity, less prevalent complications, unforeseen circumstances and the likelihood of the patient achieving his or her goals . These operative risks were discussed within the context of the standard preoperative surgical consent form. Bothwritten and verbal consent were obtained. All questions were answered and thoroughly reviewed. Pre-operative evaluation/clearance to be performed by primary care physician/medical physician, anesthesiateam, prior to operative intervention for evaluation of medical preparedness to undergo anesthesia and operative stress. Instructions for this/these evaluations were given to the patient and appropriate family/companions in attendance at clinic visit. Continue WB in knee brace RX for tramadol and robaxin Rodney Watters PGY3 Orthopaedic Surgery 10/17/2019 7:06 AM documented in this encounter Plan of Treatment Health Maintenance Due Date Last Done Comments [...] - Verona casey documented in this encounter Insurance Payer Benefit Plan / Subscriber ID Effective Dates Phone Addre ss Type Group SWEENY COMM SWEENY COMM [id number] 2019-Pres[facility] [address] [facility] t ENE [place]T documented as of this encounter
--- OUTSIDE RECORDS SUMMARY | 2019-12-19 12:41 | XMS REPORT | Summary of Care ---
:1970 Author Organization [facility] Address [address] [place] [address] Care Team Providers Name Role Phone Yanna [...] TIME) MD Kristofer Miner MD Orthopedic [address] [facility] [address] [facility] [address] [facility] 109 [facility] 109 [place] [address] Phone: Fax: Encounter Details Date Type Department Care Team Description 10/16/2019 Office Visit [facility] Everett Chappell Tear of med ia Orthopaedic Surgery- MD Kristofer meniscus of left [facility] 400 [place] knee, unspecified 2[address] [facility] [address] tear type, [place] [phone] unspecified whether [place], [place] [phone] old or current tear, [phone] initial encounter [phone] (Primary Dx) Allergies No Known Allergiesdocumented as [...] Medial: positive Joint Line Tenderness Lateral: negative Ble ( Sympt / Mech ): positive Bone [...] Watters PGY3 Orthopaedic Surgery 10/17/2019 7:06 AM I performed a history and physical examination of the patient and discussed the patient's managementwith the resident's. I reviewed the resident's note and agree with the documented findings and planof care. In addition, I supervised any procedures or injections performed at this visit. - Outside MRI viewed today demonstrates complex/horizontal medial meniscal tear with preserved jointcartilage - we discussed these findings in detail and patient wishes to proceed with surgical intervention - will call to schedule surgery [facility] Chappell MD [facility] Food Service Worker Orthopaedic Surgery 10/17/2019 1:06 PM documented in this encounter Plan of [...] ss Type Group SWEENY COMM SWEENY COMM [id number] 2019-Presen [address] [facility] t ENE [place]T [facility] [address] [address] [phone] Jerrica ARZOLA (Work) [id number] documented as of this encounter
--- OUTSIDE RECORDS SUMMARY | 2019-12-19 12:41 | XMS REPORT | Summary of Care ---
:1970 Author Organization [facility] - [facility] Address [address] [place] [address] Care Team Providers Name Role Phone Yanna Villalobos Primary Care Provider Encounter Details Date Type Department Care Team Description 10/16/2019 Orders Only [facility] Doctor Unassigned, No 301 [facility] [place] [address] 301 [place] [address] Allergies No Known Allergiesdocumented as of this encounter (statuses as of 10/20/2019) Medications Medication Sig Dispensed Refills Start Date [...] as of this encounter (statuses as of 10/20/2019) Active Problems No known active problemsdocumented as of this encounter (statuses as of 10/20/2019) Social History Tobacco Use Types Packs/Day Years [...] of this encounter Last Filed Vital Signs Not on filedocumented in this encounter Plan of Treatment Date Type Specialty Care Team Description 10/28/2019 Hospital Encounter Surgery Everett Chappell MD [address] [place] [address] [place], [place] [address] 10/28/2019 Anesthesia Event Surgery Aurea Gore RN 10/28/2019 Surgery Surgery Everett Chappell KNEE KEITH Miner MD [address] [place], [place] [address] 11/07/2019 Office Visit Orthopedic Surgery Everett Chappell MD [address] [place], [place] [address] Health Maintenance Due Date Last Done Comments DTaP,Tdap,and Td Vaccines (1 - 10/17/1982 Tdap) Depression Screening 1983 INFLUENZA VACCINE (Season Ended) 2019 PNEUMOCOCCAL 0-64 YEARS COMBINED Aged Out No longer eligible based on SERIES patient's age to complete this topic documented as of this encounter Procedures Procedure Name Priority Date/Time Associated Diagnosis Comme nts DISCLOSURE AND CONSENT, Routine 10/16/2019 12:01 AM MEDICAL AND SURGICAL CDT PROCEDURES documented in this encounter Results Not on filedocumented in this encounter Insurance Payer Benefit Plan / Subscriber ID Effective Dates Phone Addre ss Type Group CRISELDA COMM CRISELDA COMM [id number] 2019-[address] E[address] [place] documented as of this encounter
--- OUTSIDE RECORDS SUMMARY | 2019-12-19 12:41 | XMS REPORT | Summary of Care ---
:1970 Author Organization [facility] Address [address] [place], [place] [address] Care Team Providers Name Role Phone Pcp, Does Not Have A Primary Care Provider Reason for Referral Radiology Services (Routine) Status Reason Specialty Diagnoses / Referred By Referred To Procedures Contact Contact New Request Diagnostic Diagnoses [facility]rett Angel Radiology Procedures XR KNEE 3 VW LEFT MD Kristofer [address] [place] [address] Reason for Visit Radiology Services (Routine) Status Reason Specialty Diagnoses / Referred By Referred To Procedures Contact Contact New Request Diagnostic Diagnoses Everett Angel Radiology Procedures XR KNEE 3 VW DEVAUGHN Miner MD [address] [place] [address] Encounter Details Date Type Department Care Team Description 10/09/2019 Hospital Encounter [facility]rett Escalante [facility] Neema Miner MD Radiology [address] [place], [place] [address] [place], [place] [phone] Allergies No Known Allergiesdocumented as of this encounter (statuses as of 10/10/2019) Medications No known medicationsdocumented as of this encounter (statuses as of 10/10/2019) Active Problems Not on filedocumented as of this encounter (statuses as of [...] Visit Orthopedic Surgery Sergo Chappell MD [address] [facility] 109 [place] [address] Name Type Priority Associated Diagnoses Date/Ti me XR KNEE 3 VW LEFT IMAGING Routine Pain 10/09/2019 3:46 PM CDT Name Type Priority Associated Diagnoses Order S chedule XR KNEE 3 VW LEFT IMAGING Routine Pain 1 Occurren landon starting 10/09/2019 unti l 10/09/2019 Health Maintenance Due Date Last Done Comments DTaP,Tdap,and Td Vaccines (1 - 10/17/1982 Tdap) Depression Screening 1983 INFLUENZA VACCINE (Season Ended) 2019 PNEUMOCOCCAL 0-64 YEARS COMBINED Aged Out No longer eligible based on SERIES patient's age to complete this topic documented as of this encounter Results Not on filedocumented in this encounter Visit Diagnoses Diagnosis Pain Generalized pain documented in this encounter
--- OUTSIDE RECORDS SUMMARY | 2019-12-19 12:41 | XMS REPORT | Summary of Care ---
:1970 Author Organization [facility] Address [address] [place] [address] Care Team Providers Name Role Phone Yanna [...] TIME) MD Kristofer Miner MD Orthopedic 400 [facility] 400 [facility] [address] [facility] 109 [facility] 109 [place] [address] Phone: Fax: Encounter Details Date Type Department Care Team Description 10/16/[address] [facility] Everett Chappell Tear of med ia Orthopaedic Surgery- MD Kristofer meniscus of left [facility] [address] [place] knee, unspecified [address] [facility] [address] tear type, [place] [phone] unspecified whether [place], [place] [phone] old or current tear, [address] initial encounter [phone] (Primary Dx) Allergies No Known Allergiesdocumented as [...] ss Type Group SWEENY COMM SWEENY COMM [id number] 2019-Presen 305 [facility] t ENE HACKETT documented as of this encounter
--- OUTSIDE RECORDS SUMMARY | 2019-12-19 12:41 | XMS REPORT | Summary of Care ---
:1970 Author Organization [facility] Address [address] [place], [place] [address] Care Team Providers Name Role Phone Pcp, [...] MD Kristofer Miner MD [facility] [address] [place] [address] [place] [address] Phone: Fax: Encounter Details Date Type Department Care Team Description 10/09/2019 Office Visit [facility] Everett Chappell Tear of med ia Orthopaedic Surgery- MD Kristofer meniscus of left [facility] [address] knee, unspecified 2[address] [facility] [address] tear type, [place] [phone] unspecified whether [place], [place] [phone] old or current tear, [address] initial encounter [phone] (Primary Dx) Allergies No Known Allergiesdocumented as [...] Visit Orthopedic Surgery Sergo Chappell MD [address] [facility] 109 [place] [address] [phone] Health Maintenance Due Date Last Done Comments [...]
--- OUTSIDE RECORDS SUMMARY | 2019-12-19 12:42 | XMS REPORT | Summary of Care ---
:1970 Author Organization [facility] - Health Address [address] [id number] Care Team Providers Name Role Phone Yanna Villalobos Primary Care Provider Encounter Details Date Type Department Care Team Description 10/28/2019 Orders Only [facility] Doctor Unassigned, No [address] [facility] Name [address] [phone] [place] [address] Allergies No Known Allergiesdocumented as of this encounter (statuses as of 10/28/2019) Medications Medication Sig Dispensed Refills Start Date End Date Status methocarbamol 500 mg Take 1 tablet 56 tablet 0 10/16/2019 070 12/2019 Suspended tabletIndications: by mouth 4 Tear of medial (four) times meniscus of left daily for 14 knee, unspecified days. tear type, unspecified whether old or current tear, initial encounter Additional information documented as of this encounter (statuses as of 10/28/2019) Active Problems No known active problemsdocumented as of this encounter (statuses as of 10/28/2019) Social History Tobacco Use Types Packs/Day Years Used Date Current Every Day Smoker Smokeless Tobacco: Never Used Sex Assigned at Date Recorded Not on file Job Start Date Occupation Industry Not on file Not on file Not on file Travel History Travel Start Travel End No recent travel history available. COVID-19 Exposure Response Date Recorded In the last month, have you been in contact with No / Unsure 10/27/2019 1:25 PM CDT someone who was confirmed or suspected to have Coronavirus / COVID-19? documented as of this encounter Last Filed Vital Signs Not on filedocumented in this encounter Plan of Treatment Date Type Specialty Care Team Description 11/07/2019 Office Visit Orthopedic Surgery Sergo Chappell MD [address] [place], [place] [address] [phone] Health Maintenance Due Date Last Done Comments PNEUMOCOCCAL 0-64 YEARS COMBINED SERIES (1 of 1 - 10/17/1977 PPSV23) DTaP,Tdap,and Td Vaccines (1 - Tdap) 10/17/1982 Depression Screening 1983 INFLUENZA VACCINE (#1) 2019 documented as of this encounter Procedures Procedure Name Priority Date/Time Associated Diagnosis Comme nts ASSIGNMENT OF BENEFITS Routine 10/28/2019 7:08 AM CDT documented in this encounter Results Not on filedocumented in this encounter Insurance Payer Benefit Plan / Subscriber ID Effective Dates Phone Addre ss Type Group CRISELDA COMM CRISELDA COMM [id number] 2019-[place] [address] [place] [address] ENE Lange documented as of this encounter
--- OUTSIDE RECORDS SUMMARY | 2019-12-19 12:42 | XMS REPORT | Summary of Care ---
:1970 Author Organization [facility] - [facility] Address [address] [place] [address] Care Team Providers Name Role Phone Yanna Villalobos Primary Care Provider Reason for Visit Reason Comments Rx Concern/Question Encounter Details Date Type Department Care Team Description 11/04/2019 Telephone [facility] Orthopaedic Everett Chappell Rx Concern/Question Surgery- [place] [facility] [address] [address] [address] [place], [place] [id number] [place] [address] [phone] Allergies No Known Allergiesdocumented as of this encounter (statuses as of 11/04/2019) Medications Medication Sig Dispensed Refills Start Date End Date Status methocarbamol 500 Take 1 56 tablet 0 10/28/2019 A ctive mg tablet by tabletIndications: mouth 4 Tear of medial (four) times meniscus of left daily. knee, unspecified tear type, unspecified whether old or current tear, initial encounter ketorolac 10 mg Take 1 14 tablet 0 10/28/2019 Act jose tabletIndications: tablet by Tear of medial mouth every meniscus of left 6 (six) knee, unspecified hours as tear type, needed for unspecified whether Pain (scale old or current 4-6) or Pain tear, initial (scale encounter 7-10). HYDROcodone-acetami Take 1 14 tablet 0 11/04/2019 Active nophen 5-325 mg tablet by tabletIndications: mouth every acute pain 6 (six) hours as needed for Pain (scale 4-6) or Pain (scale 7-10). Indications: acute pain HYDROcodone-acetami Take 1 14 tablet 0 10/28/2019 Discontinued nophen 5-325 mg tablet by 0 (Reo rder) tabletIndications: mouth every acute pain 6 (six) hours as needed for Pain (scale 4-6) or Pain (scale 7-10) for up to 7 days. Indications: acute pain documented as of this encounter (statuses as of 11/04/2019) Active Problems No known active problemsdocumented as of this encounter (statuses as of 11/04/2019) Social History Tobacco Use Types Packs/Day Years [...] MD [address] [place], [place] [address] Health Maintenance Due Date Last Done Comments PNEUMOCOCCAL 0-64 YEARS COMBINED SERIES (1 of - 10/17/1977 PPSV23) DTaP,Tdap,and Td Vaccines (1 - Tdap) 10/17/1982 INFLUENZA VACCINE (#1) 2019 Depression Screening 10/27/2020 10/28/2019 documented as of this encounter Results Not on filedocumented in this encounter Visit Diagnoses Diagnosis Tear of medial meniscus of left knee, un specified tear type, unspecified whether old or current tear, initial encounter documented in this encounter Insurance Payer Benefit Plan / Subscriber ID Effective Dates Phone Addre ss Type Group SWEENY COMM SWENICOL COMM [id number] 2019-[place] [address] [facility] ENE Lange documented as of this encounter
--- OUTSIDE RECORDS SUMMARY | 2019-12-19 12:42 | XMS REPORT | Summary of Care ---
:1970 Author Organization [facility] Address [address] [place] [address] Care Team Providers Name Role Phone Yanna Villalobos Primary Care Provider Reason for Visit Reason Comments Pre-Op Exam Encounter Details Date Type Department Care Team Description 10/27/2019 Laboratory Only [facility] [place] Chappell MD [address] [place] [address] Health examination Clinical Only, Clc Bls Test in population survey Laboratory, [place] (Primary [address] [id number] Allergies No Known Allergiesdocumented as of this encounter (statuses as of 10/27/2019) Medications Medication Sig Dispensed Refills Start Date End Date Status methocarbamol 500 mg Take 1 tablet 56 tablet 0 10/16/2019 07/0 12/2019 Active tabletIndications: Tear by mouth 4 of medial meniscus of (four) times left knee, unspecified daily for 14 tear type, unspecified days. whether old or current tear, initial encounter documented as of this encounter (statuses as of 10/27/2019) Active Problems No known active problemsdocumented as of this encounter (statuses as of 10/27/2019) Social History Tobacco Use Types Packs/Day Years [...] MD [address] [place], [place] [address] 10/28/2019 Anesthesia Event Surgery Aurea Gore RN 10/28/2019 Surgery Surgery Everett Chappell KNEE KEITH Miner MD [address] [place], [place] [address] 11/07/2019 Office Visit Orthopedic Surgery Everett Chappell MD [address] [place], [place] [address] Name Type Priority Associated Diagnoses Date/Ti me COVID-19 (ID NOW LAB STAT Health examination in 1:30 PM CDT RAPID TESTING) population survey Name Type Priority Associated Diagnoses Order S chedule COVID-19 (ID NOW LAB STAT Health examination in Ex pected: 10/27/2019, RAPID TESTING) population survey Expires: 10/26/2020 Health Maintenance Due Date Last Done Comments PNEUMOCOCCAL 0-64 YEARS COMBINED SERIES (1 of 1 - 10/17/1977 PPSV23) DTaP,Tdap,and Td Vaccines (1 - Tdap) 10/17/1982 Depression Screening 1983 INFLUENZA VACCINE (#1) 2019 documented as of this encounter Results Not on filedocumented in this encounter Visit Diagnoses Diagnosis Health examination in population survey - Primary documented in this encounter Additional Health Concerns Infection Onset Date Last Indicated Resolved Time COVID-19 Rule Out 10/27/2019 10/27/2019 documented as of this encounter Insurance Payer Benefit Plan / Subscriber ID Effective Dates Phone Addre ss Type Group SWEENY COMM SWEENArturo COMM [id number] 2019-[address] ENE Lange documented as of this encounter
--- OUTSIDE RECORDS SUMMARY | 2019-12-19 12:42 | XMS REPORT | Summary of Care ---
:1970 Author Organization [facility] - Health Address [address] [place], [place] [id number] Care Team Providers Name Role Phone Yanna Villalobos Primary Care Provider Reason for Visit Auth/Cert Status Reason Specialty Diagnoses / Procedures Referred By Gabe nunez Referred To Contact Surgery Diagnoses Tear of medial meniscus of left knee, unspecified tear type, unspecified whether old or current tear, initial encounter - Primary ICD-10-CM: S83.242A Vl Preop Procedures [facility] CODING HELP [facility] CODING HELP KNEE ARTHROSCOPY MENISCECTOMY [facility] [address] Phone: Fax: Encounter Details Date Type Department Care Team Description 10/28/2019 Hospital Encounter [facility] Everett Chappell [facility] MD [facility] [address] [address] [place], [place] [phone] [address] [phone] Allergies No Known Allergiesdocumented as of this encounter (statuses as of 10/28/2019) Medications Medication Sig Dispensed Refills Start Date End Date Status methocarbamol 500 Take 1 56 tablet 0 10/28/2019 A ctive mg tablet by tabletIndications: mouth 4 Tear of medial (four) times meniscus of left daily. knee, unspecified tear type, unspecified whether old or current tear, initial encounter HYDROcodone-acetami Take 1 14 tablet 0 10/28/2019 Active nophen 5-325 mg tablet by 0 tabletIndications: mouth every acute pain 6 (six) hours as needed for Pain (scale 4-6) or Pain (scale 7-10) for up to 7 days. Indications: acute pain ketorolac 10 mg Take 1 14 tablet 0 10/28/2019 Act jose tabletIndications: tablet by Tear of medial mouth every meniscus of left 6 (six) knee, unspecified hours as tear type, needed for unspecified whether Pain (scale old or current 4-6) or Pain tear, initial (scale encounter 7-10). traMADol 50 mg Take 1 20 tablet 0 10/16/2019 Expi red tabletIndications: tablet by 0 Tear of medial mouth every meniscus of left 6 (six) knee, unspecified hours as tear type, needed for unspecified whether Pain (scale old or current 7-10) for up tear, initial to 10 days. encounter methocarbamol 500 Take 1 56 tablet 0 10/16/2019 D iscontinued mg tablet by 0 (Reorder) tabletIndications: mouth 4 Tear of medial (four) [...] Every Day Smoker Smokeless Tobacco: Never Used Tobacco Cessation: Ready to Quit: Yes; C ounseling Given: No Sex Assigned at Date Recorded Not on [...] Sign Reading Time Taken Comments Blood Pressure 125/87 10/28/2019 10:50 AM CDT Pulse 60 10/28/2019 10:50 AM CDT Temperature 36.4 C (97.5 F) 10/28/2019 7:38 AM CDT Respiratory Rate 15 10/28/2019 10:50 AM CDT Oxygen Saturation 98% 10/28/2019 10:50 AM CDT Inhaled Oxygen Concentration - - Weight 117.9 kg (260 lb) 10/28/2019 7:38 AM CDT Height 177.8 cm (5' 10") 10/28/2019 7:38 AM CDT Body Mass Index 37.31 10/28/2019 7:38 AM CDT documented in this encounter Discharge Instructions Lisa Humphreys RN - 10/28/2019Follow instructions as indicated below: Patient should cough and deep breathe every 2-4 hours while awake to avoid respiratory complications. You may have a sore throat from the airway that was in place during surgery. You may uses lozenges,throat spray (such as Chloraseptic), or warm salt water gargles for symptomatic relief. Please contact your physician, if you experience any of the following symptoms: Uncontrolled pain not relieved by pain medications Uncontrolled nausea or vomiting Unable to urinate 6 hours after your procedure Uncontrolled bleeding at surgical site If you receive the patient satisfaction survey by mail please complete and return and let us know how we are doing. TOBACCO AVOIDANCE Exposure to tobacco either from smoking or from second hand (environmental) smoke or smokeless tobacco (snuff) is damaging to your health. This information is to encourage everyone to avoid tobacco exposure: If you smoke or use smokeless tobacco, we encourage you to quit. If you have already quit smoking, continue your good work. If you do not smoke or use smokeless tobacco, do not start. Avoid secondhand smoke. You may want to contact these organizations for further information on how to quit smoking: [place] [employer], http://www.lungusa.org/stop-smoking/ [place] [employer], http://www.cancer.org/Healthy/StayAwayfromTobacco/index [place] [employer], http://www.heart.org/HEARTORG/GettingHealthy/QuitSmoking/Quit-Smoking_[facility] _001085_SubHomePage.jsp documented in this encounter Plan of Treatment Date Type Specialty Care Team Description 11/07/2019 Office Visit Orthopedic Surgery Sergo Chappell MD [address] [address] [phone] Health Maintenance Due Date Last Done Comments PNEUMOCOCCAL 0-64 YEARS COMBINED SERIES ( - 10/17/1977 PPSV23) DTaP,Tdap,and Td Vaccines (1 - Tdap) 10/17/1982 INFLUENZA VACCINE (#1) 2019 Depression Screening 10/27/2020 10/28/2019 documented as of this encounter Results Not on filedocumented in this encounter Visit Diagnoses Diagnosis Tear of medial meniscus of left knee, un specified tear type, unspecified whether old or current tear, initial encounter documented in this encounter Administered Medications Medication Order MAR Action Action Date Dose Rate Site bupivacaine (preserv free) Given 10/28/2019 9:58 AM CDT 30 mL (SENSORCAINE MPF) 0.25 % (2.5 mg/mL) injection PRN, Starting e 10/28/19 at 0958, Until Discontinued, Routine, Intra-op FENTanyl PF (SUBLIMAZE (PF)) injection 2 5 mcg 25 mcg, Slow IV Push, Q5MIN PRN, 4 doses, Starting 10/28/19 at 1017, Until Discontinued, Routine, Pain (scale 4-6), PACU HYDROmorphone (DILAUDID) injection 0.2 m g Given 10/28/2019 10:45 AM CDT 0.2 mg 0.2 mg, Slow IV Push, Q5MIN PRN, 10 doses, Starting Sun10/28/19 at 1017, Until Discontinued, Routine, Pain (scale 7-10), PACU, Use approved by (Faculty): PACU USE -ANESTHESIA SERVICE-HYDROMORPHONE INJECTIONS Given 10/28/2019 10:40 AM CDT 0.2 mg Given 10/28/2019 10:33 AM CDT 0.2 mg lactated ringers IV infusion 1,000 mL at 100 mL/hr, 1,000 mL, IV Infusion, CON TINUOUS, Starting e 10/28/19 at 1030, Until Discontinued, Routine, PACU ondansetron (ZOFRAN (PF)) injection 4 mg 4 mg, Slow IV Push, PRN, 1 dose, Startin g Sun10/28/19 at 1017, Until Discontinued, Routine, Nausea and Vomiting (N/V), PACU sodium chloride 0.9 % irrigation solutio n Given 10/28/2019 9:35 AM CDT 12 L PRN, Starting 7/7/20 at 0935, Until Discontinued, Intra-op Medication Order MAR Action Action Date Dose Rate Site HYDROcodone-acetaminophen Given 10/28/2019 10:50 AM CDT 1 tablet (NORCO 5) 5-325 mg tablet 1 tablet 1 tablet, Oral, ONCE, 1 dose, Sun10/28/19 at 1030, Routine, PACU lactated ringers IV infusion New Bag 10/28/2019 7:53 AM CDT 1,000 mL 20 mL/hr 1,000 mL at 20 mL/hr, 1,000 mL, IV Infusion, ONCE, 1 dose, Sun10/28/19 at 0800, Routine, DSU Pre-op documented in this encounter Insurance Payer Benefit Plan / Subscriber ID Effective Dates Phone Addre ss Type Group COCONICOL COMM COCONICOL COMM [id number] 2019-[address] [place]T documented as of this encounter
--- OUTSIDE RECORDS SUMMARY | 2019-12-19 12:42 | XMS REPORT | Summary of Care ---
:1970 Author Organization [facility] - [facility] Address [address] [place] [address] Care Team Providers Name Role Phone Griselda Yanna Primary Care Provider Reason for Visit Reason Comments Rx Concern/Question Encounter Details Date Type Department Care Team Description 11/04/2019 Telephone [facility] Orthopaedic Everett Chappell Rx Concern/Question Surgery- [place] MD [facility] [address] [facility] [address] [address] [address] [place], [place] [address] [place] [address] [phone] Allergies No Known Allergiesdocumented as of this encounter (statuses as of 11/04/2019) Medications Medication Sig Dispensed Refills Start Date End Date Status methocarbamol 500 mg Take 1 tablet 56 tablet 0 10/28/2019 Active tabletIndications: Tear by mouth 4 of medial meniscus of (four) times left knee, unspecified daily. tear type, unspecified whether old or current tear, initial encounter HYDROcodone-acetaminoph Take 1 tablet 14 tablet 0 10/28/2019 0 11/04/2019 Active en 5-325 mg by mouth every tabletIndications: 6 (six) hours acute pain as needed for Pain (scale 4-6) or Pain (scale 7-10) for up to 7 days. Indications: acute pain ketorolac 10 mg Take 1 tablet 14 tablet 0 10/28/2019 Active tabletIndications: Tear by mouth every of medial meniscus of 6 (six) hours left knee, unspecified as needed for tear type, unspecified Pain (scale whether old or current 4-6) or Pain tear, initial encounter (scale 7-10). documented as of this encounter (statuses as [...] MD [address] [place], [place] [address] Health Maintenance Due Date [...] ss Type Group CRISELDA COMM CRISELDA COMM [id number] 2019-[place] [address] [place] [address] ENE Lange documented as of this encounter
--- OUTSIDE RECORDS SUMMARY | 2019-12-19 12:43 | XMS REPORT | Summary of Care ---
:1970 Author Organization [facility] Address [address] [place] [address] Care Team Providers Name Role Phone Yanna Villalobos Primary Care Provider Reason for Referral (Routine) Status Reason Specialty Diagnoses / Referred By Referred To Procedures Contact Contact New Request Physical Therapy Diagnoses Tear of medial meniscus of left knee, unspecified tear type, unspecified whether old or current tear, initial encounter Everett Chappell Procedures CONSULT/REFERRAL PHYSICAL THERAPY MD Kristofer [address] [place] [address] Reason for Visit Reason Comments Follow-up lt. knee (Routine) Status Reason Specialty Diagnoses / Referred By Referred To Procedures Contact Contact Authorized Orthopedic Surgery Diagnoses follow up Adriana Villalobos Procedures CONSULT/REFERRAL ORTHOPAEDIC SURGERY [address] [place] [address] Encounter Details Date Type Department Care Team Description 12/09/2019 Office Visit [facility] Everett Chappell Tear of med ia Orthopaedic Surgery- MD Kristofer meniscus of left [facility] [address] knee, unspecified [address] [facility] [address] tear type, [place] [address] unspecified whether [place], [place] [phone] old or current tear, [phone] initial encounter [phone] (Primary Dx) Allergies No Known Allergiesdocumented as of this encounter (statuses as of 12/09/2019) Medications Medication Sig Dispensed Refills Start Date End Date Status methocarbamol 500 mg Take 1 tablet 56 tablet 0 10/28/2019 Active tabletIndications: Tear by mouth 4 of medial meniscus of (four) times left knee, unspecified daily. tear type, unspecified whether old or current tear, initial encounter ketorolac 10 mg Take 1 tablet 14 tablet 0 10/28/2019 Active tabletIndications: Tear by mouth every of medial meniscus of 6 (six) hours left knee, unspecified as needed for tear type, unspecified Pain (scale whether old or current 4-6) or Pain tear, initial encounter (scale 7-10). HYDROcodone-acetaminoph Take 1 tablet 14 tablet 0 11/04/2019 Active en 5-325 mg by mouth every tabletIndications: 6 (six) hours acute pain as needed for Pain (scale 4-6) or Pain (scale 7-10). Indications: acute pain traMADoL 50 mg Take 1 tablet 28 tablet 0 12/09/2019 12/16/2019 Active tabletIndications: by mouth every acute pain 6 (six) hours as needed for Pain (scale 7-10) for up to 7 days. Indications: acute pain documented as of this encounter (statuses as of 12/09/2019) Active Problems No known active problemsdocumented as of this encounter (statuses as of 12/09/2019) Social History Tobacco Use Types Packs/Day Years Used Date Current Every Day Smoker Smokeless Tobacco: Never Used Sex Assigned at Date Recorded Not on file documented as of this encounter Last Filed Vital Signs Vital Sign Reading Time Taken Comments Blood Pressure - - Pulse - - Temperature 35.8 C (96.5 F) 12/09/2019 8:45 AM CDT Respiratory Rate - - Oxygen Saturation - - Inhaled Oxygen Concentration - - Weight 119.7 kg (264 lb) 12/09/2019 8:45 AM CDT Height 177.8 cm (5' 10") 12/09/2019 8:45 AM CDT Body Mass Index 37.88 12/09/2019 8:45 AM CDT documented in this encounter Progress Notes Everett Chappell MD - 12/09/2019 8:40 AM CDT Orthopedic Surgery Clinic Note Cc: left knee MMT s/p partial meniscectomy 10/28/19 HPI: Doing well. 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 Pain 11/30 request refill for pain meds due to this flare. Sutures in place and no problems with incisions Interval hx 12/09/2019: Davonte Boucher is a 49 year old male here today for follow up. He statesthat he has been working and still horseback riding which is giving him discomfort in his knee. At the end of the day after work he is having most of his discomfort. No Known Allergies PMH No past medical history on file. PSH Past Surgical History: Procedure Laterality Date KNEE ARTHROSCOPY Left 10/28/2019 Surgeon: Everett Chappell MD; Location: [facility] MENISCECTOMY Left 10/28/2019 Surgeon: Everett Chappell MD; Location: [facility] Social History Socioeconomic History Marital status: Single Spouse name: Not on file Number of children: Not on file Years of education: Not on file Highest education level: Not on file Occupational History Not on file Social Needs Financial resource strain: Not on file Food insecurity Worry: Not on file Inability: Not on file Transportation needs Medical: Not on file Non-medical: Not on file Tobacco Use Smoking status: Current Every Day Smoker Smokeless tobacco: Never Used Substance and Sexual Activity Alcohol use: Not on file Drug use: Not on file Sexual activity: Not on file Lifestyle Physical activity Days per week: Not on file Minutes per session: Not on file Stress: Not on file Relationships Social connections Talks on phone: Not on file Gets together: Not on file Attends nondenominational service: Not on file Active member of club or organization: Not on file Attends meetings of clubs or organizations: Not on file Relationship status: Not on file Intimate partner violence Fear of current or ex partner: Not on file Emotionally abused: Not on file Physically abused: Not on file Forced sexual activity: Not on file Other Topics Concern Not on file Social History Narrative Not on file FHX family history is not on file. Not relevant to this encounter Review of Systems: General: negative Skin: negative HEENT: negative Neck: negative Heme: negative Resp: negative Cardio: negative GI: negative Psych: negative Physical Examination: General: Awake and alert, NAD Heart: RRR Lungs: Breathing non labored Eyes: No redness or strabismus Circulatory: Extremities warm and well perfused Skin: incision c/d/i Neurological: normal Psyc: Age appropriate behavior LLE Incision healed No drainage ROM 0-120 w/o pain Motor and sensory grossly intact Brisk cap refill distally Radiology None new Assessment Davonte Boucher is a 49 year old male s/p L partial meniscectomy 10/28/19. Prior pain has improved but exacerbated after horse riding Plan WBAT Nonstrenuous activity Tramadol for pain relief If still symptomatic at 6 week follow up may consider injection Discussed the need for post op PT and the role in alleviating his post op discomfort Follow-up in 6 weeks. documented in this encounter Plan of Treatment Date Type Specialty Care Team Description 01/20/2020 Office Visit Orthopedic Surgery Sergo Chappell MD [address] [place], [place] [address] Health Maintenance Due Date Last Done Comments PNEUMOCOCCAL 0-64 YEARS COMBINED SERIES (1 of 3 - 10/17/1977 PCV13) DTaP,Tdap,and Td Vaccines (1 - Tdap) 10/17/1990 INFLUENZA VACCINE (#1) 2019 Depression Screening 10/27/2020 10/28/2019 Colorectal Cancer Screening 10/17/2021 documented as of this encounter Results Not on filedocumented in this encounter Visit Diagnoses Diagnosis Tear of medial meniscus of left knee, un specified tear type, unspecified whether old or current tear, initial encounter - [facility] documented in this encounter Insurance Payer Benefit Plan / Subscriber ID Effective Dates Phone Addre ss Type Group SWEENY COMM SWEENY COMM [id number] 2019-[place] [address] [facility] ENE Lange documented as of this encounter
--- OUTSIDE RECORDS SUMMARY | 2019-12-19 12:43 | XMS REPORT | Summary of Care ---
:1970 Author Organization [facility] Address [address] [place], [place] [address] Care Team Providers Name Role Phone Yanna Villalobos Primary Care Provider Reason for Visit Reason Comments Follow-up left knee pain (Routine) Status Reason Specialty Diagnoses / Referred By Referred To Procedures Contact Contact Closed ORT-ORTHOPAEDIC Diagnoses left tear of meniscus of knee travel screening cleared Everett Chappell Robert SURGERY / Procedures CONSULT/REFERRAL ORTHOPAEDIC SURGERY NEW VISIT (FIRST TIME) MD Kristofer Miner MD Orthopedic Surgery [address] [facility] [address] [place] [facility] [address] [place] [address] Phone: Fax: Encounter Details Date Type Department Care Team Description 11/10/2019 Office Visit [facility] Everett Chappell Tear of med ial Orthopaedic Surgery- MD Kristofer meniscus of left [facility] [address] [facility], unspecified [address] [facility] [address] tear type, [place] [phone] unspecified whether [place], [place] [phone] old or current tear, [phone] initial encounter [phone] (Primary Dx) Allergies No Known Allergiesdocumented as of this encounter (statuses as of 11/10/2019) Medications Medication Sig Dispensed Refills Start Date End Date Status methocarbamol 500 mg Take 1 tablet by 56 tablet 0 10/28/2019 Active tabletIndications: mouth 4 (four) Tear of medial times daily. meniscus of left knee, unspecified tear type, unspecified whether old or current tear, initial encounter ketorolac 10 mg Take 1 tablet by 14 tablet 0 10/28/2019 Active tabletIndications: mouth every 6 Tear of medial (six) hours as meniscus of left knee, needed for Pain unspecified tear type, (scale 4-6) or unspecified whether Pain (scale old or current tear, 7-10). initial encounter HYDROcodone-acetaminop Take 1 tablet by 14 tablet 0 11/04/2019 Active hen 5-325 mg mouth every 6 tabletIndications: (six) hours as acute pain needed for Pain (scale 4-6) or Pain (scale 7-10). Indications: acute pain HYDROcodone-acetaminop Take 1 tablet by 20 tablet 0 11/10/2019 11/17/2019 Active hen (NORCO) 5-325 mg mouth every 6 tabletIndications: (six) hours as chronic pain needed for Pain (scale 7-10) for up to 7 days. Indications: chronic pain documented as of this encounter (statuses as of 11/10/2019) Active Problems No known active problemsdocumented as of this encounter (statuses as of 11/10/2019) Social History Tobacco Use Types Packs/Day Years [...] Pressure - - Pulse - - Temperature 36.5 C (97.7 F) 11/10/2019 3:05 PM CDT Respiratory Rate - - Oxygen Saturation - - Inhaled Oxygen Concentration - - Weight 118.8 kg (262 lb) 11/10/2019 3:05 PM CDT Height 177.8 cm (5' 10") 11/10/2019 3:05 PM CDT Body Mass Index 37.59 11/10/2019 3:05 PM CDT documented in this encounter Progress Notes Demetrio Tamayo MD - 11/10/2019 3:20 PM CDT Orthopedic Surgery Clinic Note Cc: left knee MMT s/p partial meniscectomy 10/28/19 HPI: Doing well. 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 Pain 11/30 request refill for pain meds due to this flare. Sutures in place and no problems with incisions No Known Allergies PMH No past medical history on file. PSH Past Surgical History: Procedure Laterality Date KNEE ARTHROSCOPY Left 10/28/2019 Surgeon: Everett Chappell MD; Location: [facility] MENISCECTOMY Left 10/28/2019 Surgeon: Everett Chappell MD; Location: [facility] Social History Socioeconomic History Marital status: Single Spouse name: Not on file Number of children: Not on file Years of education: Not on file Highest education level: Not on file Occupational History Not on file Social Needs Financial resource strain: Not on file Food insecurity: Worry: Not on file Inability: Not on file Transportation needs: Medical: Not on file Non-medical: Not on file Tobacco Use Smoking status: Current Every Day Smoker Smokeless tobacco: Never Used Substance and Sexual Activity Alcohol use: Not on file Drug use: Not on file Sexual activity: Not on file Lifestyle Physical activity: Days per week: Not on file Minutes per session: Not on file Stress: Not on file Relationships Social connections: Talks on phone: Not on file Gets together: Not on file Attends jew service: Not on file Active member of club or organization: Not on file Attends meetings of clubs or organizations: Not on file Relationship status: Not on file Intimate partner violence: Fear of current or ex partner: Not [...] normal Psyc: Age appropriate behavior LLE Incision c/d/i No drainage ROM 0-120 w/o pain Motor and sensory grossly intact Brisk cap refill distally Radiology None new Assessment Davonte Boucher is a 49 year old male s/p L partial meniscectomy 10/28/19. Prior pain has improved but exacerbated after horse riding Plan WBAT Sutures out today in clinic Nonstrenuous activity Rx refilled for 1 wk norco, no more NSAIDs as needed Imaging reviewed and findings discussed with patient. Proper home care/self care instructed in detail. Follow up in 4 wks Demetrio Tamayo MD documented in this encounter Plan of Treatment Date Type Specialty Care Team Description 12/08/2019 Office Visit Orthopedic Surgery Sergo Chappell MD [address] [place], [place] [address] Health Maintenance Due Date [...] ss Type Group SWEENY COMM SWENICOL COMM [id number] 2019-[address] ENE Lange documented as of this encounter
--- OUTSIDE RECORDS SUMMARY | 2019-12-19 12:43 | XMS REPORT | Summary of Care ---
:1970 Author Organization [facility] Address [address] [place] [address] Care Team Providers Name Role Phone Yanna Villalobos Primary Care Provider Reason for Referral (Routine) Status Reason Specialty Diagnoses / Referred By Referred To Procedures Contact Contact New Request Physical Therapy Diagnoses Tear of medial meniscus of left knee, unspecified tear type, unspecified whether old or current tear, initial encounter Everett Chappell Procedures CONSULT/REFERRAL PHYSICAL THERAPY MD Kristofer [address] [place] [address] Reason for Visit Reason Comments Follow-up lt. knee (Routine) Status Reason Specialty Diagnoses / Referred By Referred To Procedures Contact Contact Authorized Orthopedic Surgery Diagnoses follow up Adriana Villalobos Procedures CONSULT/REFERRAL ORTHOPAEDIC SURGERY [address] [place] [address] Encounter Details Date Type Department Care Team Description 12/09/2019 [facility] Everett Chappell Tear of med ia Orthopaedic Surgery- MD Kristofer meniscus of left [facility] [address] knee, unspecified [address] [facility] [address] tear type, [place] [address] unspecified whether [place], [place] [phone] old or current tear, [phone] initial encounter [phone] (Primary Dx) Allergies No Known Allergiesdocumented as [...] Left 10/28/2019 Surgeon: Everett Chappell MD; Location: [facility] MENISCECTOMY Left 10/28/2019 Surgeon: Everett Chappell MD; Location: [facility] Social History Socioeconomic History Marital status: Single [...] file Gets together: Not on file Attends jain service: Not on file Active member of [...] MD [address] [place], [place] [address] Health Maintenance Due Date [...] old or current tear, initial encounter - [facility] documented in this encounter Insurance Payer Benefit Plan / Subscriber ID Effective Dates Phone Addre ss Type Group SWEENY COMM SWEENY COMM [id number] 2019-[place] [address] [facility] ENE Lange documented as of this encounter
--- OUTSIDE RECORDS SUMMARY | 2019-12-19 12:43 | XMS REPORT | Summary of Care ---
:1970 Author Organization [facility] Address [address] [place] [address] Care Team Providers Name Role Phone Yanna Villalobos Primary Care Provider Reason for Visit Reason Comments Rx Concern/Question Encounter Details Date Type Department Care Team Description 11/04/2019 Telephone [facility] Orthopaedic Everett Chappell Rx Concern/Question Surgery- [place] MD Kristofer [facility] [address] [facility] Everett [address] [place] [address] [address] [place], [place] [address] [place] [address] [phone] Allergies No Known Allergiesdocumented as of this [...] MD [address] [place], [place] [address] Health Maintenance Due Date [...] ss Type Group SWEENY COMM SWENICOL COMM [id number] 2019-Presen 305 [facility] ENE Lange documented as of this encounter
--- OUTSIDE RECORDS SUMMARY | 2019-12-19 12:43 | XMS REPORT | Summary of Care ---
:1970 Author Organization [facility] Address [address] [place], [place] [address] Care Team Providers Name Role Phone Yanna [...] MD Kristofer Miner MD Orthopedic Surgery 400 [facility] [address] [facility] [address] [place] [address] Phone: Fax: Encounter Details Date Type Department Care Team Description 11/10/2019 Office Visit [facility] Everett Chappell Tear of med ial Orthopaedic Surgery- MD Kristofer meniscus of left [facility] [address] [facility] knee, unspecified 2[address] [facility] [address] tear type, [place] [phone] unspecified whether [place], [place] [phone] old or current tear, [phone] initial encounter [phone] (Primary Dx) Allergies No Known Allergiesdocumented as [...] Left 10/28/2019 Surgeon: Everett Chappell MD; Location: [facility] MENISCECTOMY Left 10/28/2019 Surgeon: Everett Chappell MD; Location: [facility] Social History Socioeconomic History Marital status: [...] file Gets together: Not on file Attends islam service: Not on file Active member of [...] up in 4 wks Demetrio Tamayo MD I performed a history and physical examination of the patient and discussed the patient's managementwith the resident's. I reviewed the resident's note and agree with the documented findings and planof care. In addition, I supervised any procedures or injections performed at this visit. - doing very well s/p L knee partial meniscectomy - WBAT - at this time he has full ROM already with good strength - recommend physical therapy for strengthening and return to work program - follow-up in 4 weeks Everett Chappell MD Licensed Nurse Practitioner Orthopaedic Surgery 11/10/2019 3:56 PM documented in this encounter Plan of Treatment Date Type Specialty Care Team Description 12/08/2019 Office Visit Orthopedic Surgery Sergo Chappell MD [address] [place], [place] [address] Health Maintenance Due Date [...] Effective Dates Phone Addre ss Type Group SWENICOL ABURTO COMM [id number] 2019-Presen 305 [facility] t [place] documented as of this encounter
--- OUTSIDE RECORDS SUMMARY | 2019-12-19 12:43 | XMS REPORT | Summary of Care ---
:1970 Author Organization [facility] Address [address] [place], [place] [address] Care Team Providers Name Role Phone Yanna [...] MD Kristofer Miner MD Orthopedic Surgery [address] [facility] [address] 400 [facility] [address] [place] [address] Phone: Fax: Encounter Details Date Type Department Care Team Description 11/10/2019 Office Visit [facility] Everett Chappell Tear of med ial Orthopaedic Surgery- MD Kristofer meniscus of left [facility] 400 [facility], unspecified [address] [facility] [address] tear type, [place] [phone] unspecified whether [place], [place] [phone] old or current tear, [phone] initial encounter [phone] (Primary Dx) Allergies No Known Allergiesdocumented as [...] Left 10/28/2019 Surgeon: Everett Chappell MD; Location: [facility] MENISCECTOMY Left 10/28/2019 Surgeon: vEerett Chappell MD; Location: [facility] Social History Socioeconomic History Marital status: Single [...] file Gets together: Not on file Attends scientology service: Not on file Active member of [...] MD [address] [place], [place] [address] Health Maintenance Due Date [...] ss Type Group SWEENY COMM SWENICOL COMM [id number] [address] E[place] Lange documented as of this encounter
[2019-12-19] MEDS ORDERED: MORPHINE 4 MG/ML SYR ONE (13:31)
[2019-12-19 13:32] LABS: Absolute Lymphocytes (CBC) 2.1 K/uL (0.7-4.9); Basophils % 0.8 % (0-1.3); Hematocrit 47.6 % (39.6-49.0); Lymphocytes % 28.4 % (15.3-44.8)
[2019-12-19] MEDS ORDERED: ONDANSETRON 4 MG/2 ML VIAL ONE (13:32)
[2019-12-19 13:47] LABS: Albumin 4.3 g/dL (3.4-5.0); Bilirubin Direct 0.3 mg/dL (0-0.2); Bilirubin Total 1.6 mg/dL (0.2-1.0); Potassium 4.6 mmol/L (3.5-5.1); Protein, Total 8.2 g/dL (6.4-8.2)
[2019-12-19 14:05] LABS: Urine Blood 2+ (NEG); Urine Glucose NEGATIVE (NEG); Urine Protein 1+ (NEG); Urine Specific Gravity 1.025 (1.005-1.030); Urine pH 5.5 (5.0-7.0)
[2019-12-19] MEDS ORDERED: NA CHLORIDE 0.9% 1,000 ML ONE (14:07)
--- NOTE | 2019-12-19 14:30 | RAD REPORT ---
EXAM DESCRIPTION: CTAbdomen Pelvis W Contrast - 12/19/2019 2:16 pm CLINICAL HISTORY: Abdominal pain. left flank pain COMPARISON: Abdomen Pelvis W Contrast dated 08/16/2017; Abdomen Pelvis W Contrast dated 08/13/2017 ; Abdomen Pelvis W Contrast dated 07/23/2017; CT ABD PELVIS W CONTRAST dated 08/25/2011 TECHNIQUE: Biphasic CT imaging of the abdomen and pelvis was performed with 100 ml non-ionic IV cont rast. All CT scans are performed using dose optimization technique as appropriate and may include automated exposure control or mA/KV adjustment according to patient size. FINDINGS: The lung bases are clear. Mild fatty liver is seen. 33 mm lesion in the right lobe of the liver laterally is favored to represe nt a benign hemangioma. No intra or extrahepatic biliary tree dilatation. The spleen, pancreas, adren al glands and kidneys show no acute process. Small benign left renal cysts. No bowel obstruction, free air, free fluid or abscess. The appendix is normal. There is significant sigmoid diverticulosis coli seen. Trace pericolonic inflammatory changes are present in the left lowe r quadrant suspicious for mild/early acute diverticulitis. No complication evident. No evidence of si gnificant lymphadenopathy. No suspicious bony findings. IMPRESSION: Mild/early findings of acute diverticulitis involving the sigmoid colon. No abscess or o ther complication evident. Moderate colonic fecal retention.
[2019-12-19] MEDS ORDERED: HYDROMORPHONE HCL 0.5 MG/0.5 ML INJ ONE (14:34)
[2019-12-19] MEDS ORDERED: metroNIDAZOLE 500 MG TABLET ONE (14:52)
[2019-12-19] MEDS ORDERED: levoFLOXacin 750 MG TAB ONE (14:52)
--- NOTE | 2019-12-19 15:16 | EDPHYS ---
Physician Documentation [facility] Name: Davonte Boucher Age: 49 yrs Sex: Male : 1970 Arrival Date: 12/19/2019 Time: 12:41 Bed 20 Private MD: ED Physician Rob Rashid HPI: 12/18 12:52 This 49 yrs old Black Male presents to ER via Ambulatory with complaints of Abdominal jmm Cramping. 12:52 The patient complains of pain in the left flank. Onset: The symptoms/episode jmm began/occurred gradually, 2 week(s) ago. Modifying factors: The symptoms are alleviated by nothing. the symptoms are aggravated by movement. Associated signs and symptoms: Pertinent negatives: dysuria, fever, vomiting. This is a 49 year old male with a history of diverticulitis, htn that presents to the ED with complaints of left flank pain beginning approx 2 weeks ago. Denies fever, denies vomiting. Pain will radiates into his left lower abdomen. Patient states pain is similar to previous diverticulitis. . Historical: - Allergies: 12:45 NKA; aa5 - Home Meds: 12:45 None [Active]; aa5 - PMHx: 12:45 Diverticulitis; GI Bleed; Hypertension; aa5 - PSHx: 12:45 None; aa5 - Immunization history:: Adult Immunizations unknown. - Social history:: Smoking status: Patient reports the use of cigarette tobacco products, smokes one-half pack cigarettes per day. ROS: 12:52 Constitutional: Negative for fever, chills, and weight loss, Cardiovascular: Negative jmm for chest pain, palpitations, and edema, Respiratory: Negative for shortness of breath, cough, wheezing, and pleuritic chest pain. 12:52 Abdomen/GI: Positive for abdominal pain. 12:52 Back: Positive for flank pain. 12:52 All other systems are negative. Exam: 12:52 Constitutional: This is a well developed, well nourished patient who is awake, alert, jmm and in no acute distress. Head/Face: atraumatic. Eyes: EOMI, no conjunctival erythema appreciated ENT: Moist Mucus Membranes Neck: Trachea midline, Supple Chest/axilla: Normal chest wall appearance and motion. Cardiovascular: Regular rate and rhythm. No edema appreciated Respiratory: Normal respirations, no respiratory distress appreciated 12:52 Skin: General appearance color normal MS/ Extremity: Moves all extremities, no obvious deformities appreciated, no edema noted to the lower extremities Neuro: Awake and alert, normal gait Psych: Behavior is normal, Mood is normal, Patient is cooperative and pleasant 12:52 Abdomen/GI: Inspection: abdomen appears normal, Bowel sounds: normal, Palpation: soft, mild abdominal tenderness, in the left lower quadrant. 12:52 Back: CVA tenderness, that is mild, is noted on the left. Vital Signs: 12:45 BP 135 / 89; Pulse 92; Resp 18 S; Temp 98.2(O); Pulse Ox 97% on R/A; Weight 117.93 kg aa5 (R); Height 5 ft. 9 in. (175.26 cm) (R); Pain 6/10; 12:49 BP 146 / 91; Pulse 97; Resp 16; Pulse Ox 95% on R/A; Pain 9/10; ll2 13:50 BP 124 / 84; Pulse 85; Resp 14; Pulse Ox 95% on R/A; Pain 0/10; ll2 14:39 BP 141 / 86; Pulse 80; Resp 15; Pulse Ox 96% on R/A; ll2 12:45 Body Mass Index 38.39 (117.93 kg, 175.26 cm) aa5 MDM: 12:52 Patient medically screened. julieth 15:14 Data reviewed: vital signs, nurses notes. Counseling: I had a detailed discussion with julieth the patient and/or guardian regarding: the historical points, exam findings, and any diagnostic results supporting the discharge/admit diagnosis, lab results, radiology results, the need for outpatient follow up, to return to the emergency department if symptoms worsen or persist or if there are any questions or concerns that arise at home. ED course: Patient is alert and non toxic in appearance in the ED. Patient is advised to follow up with pcp for reevaluation. patient is otherwise given strict return precautions. Patient understood and agrees with the plan of care. . 12/18 12:52 Order name: Basic Metabolic Panel; Complete Time: 13:[address] [facility] 12/18 12:52 Order name: CBC with Diff; Complete Time: 13:[address] [facility] 12/18 12:52 Order name: Hepatic Function; Complete Time: 13:[address] [facility] 12/18 12:52 Order name: Lipase; Complete Time: 13:[address] [facility] 12/18 13:11 Order name: Urine Dipstick--Ancillary (enter results); Complete Time: 14:07 12/18 13:39 Order name: CT Abd/Pelvis - IV Contrast Only; Complete Time: 14:[address] [facility] 12/18 12:52 Order name: IV Saline Lock; Complete Time: 13:[address] [facility] 12/18 12:52 Order name: Labs collected and sent; Complete Time: 13:[address] [facility] 12/18 12:52 Order name: Urine Dipstick-Ancillary (obtain specimen); Complete Time: 13:32 jm Administered Medications: 13:31 Drug: morphine 4 mg Route: IVP; Site: left antecubital; ll2 13:31 Follow up: Response: No adverse reaction ll2 13:32 Follow up: Response: RASS: Alert and Calm (0) ll2 13:31 Drug: Zofran (Ondansetron) 4 mg Route: IVP; Site: left antecubital; ll2 13:32 Follow up: Response: Nausea is decreased ll2 14:00 Drug: NS 0.9% 1000 ml Route: IV; Rate: 1 bolus; Site: left antecubital; ll2 15:28 Follow up: IV Status: Completed infusion ll2 14:29 Drug: Dilaudid 0.5 mg Route: IVP; Site: left antecubital; ll2 14:30 Follow up: Response: RASS: Alert and Calm (0) ll2 15:28 Follow up: Response: No adverse reaction; RASS: Alert and Calm (0) ll2 14:45 Drug: LevaQUIN 750 mg Route: PO; ll2 15:28 Follow up: Response: No adverse reaction ll2 14:45 Drug: Flagyl 500 mg Route: PO; ll2 15:27 Follow up: Response: No adverse reaction ll2 Disposition: 17:40 Co-signature as Attending Physician, Rob Rashid MD I agree with the assessment and kdr plan of care. Disposition: 12/19/19 15:15 Discharged to Home. Impression: Diverticulitis of large intestine without perforation or abscess without bleeding. - Condition is Stable. - Discharge Instructions: Diverticulitis. - Prescriptions for Zofran ODT 4 mg Oral tablet,disintegrating - place 1 tablet by TRANSLINGUAL route every 4 hours; 20 tablet. Flagyl 500 mg Oral Tablet - take 1 tablet by ORAL route every 8 hours for 10 days; 30 tablet. Levaquin 750 mg Oral Tablet - take 1 tablet by ORAL route once daily for 10 days; 10 tablet. Tylenol- Codeine #3 300-30 mg Oral Tablet - take 1 tablet by ORAL route every 6 hours As needed; 20 tablet. - Medication Reconciliation Form, Thank You Letter, Antibiotic Education, Prescription Opioid Use form. - Follow up: Private Physician; When: 2 - 3 days; Reason: Recheck today's complaints, Continuance of care, Re-evaluation by your physician. Signatures: Dispatcher [employer] EDMS Rob Rashid MD MD kdr Mickail, Joel, PA PA jmm Calderon, Audri, RN RN aa5 Margarita Vance RN RN jl7 Jenny Brown RN RN ll2 Corrections: (The following items were deleted from the chart) 13:50 13:39 Abdomen Pelvis W Con+CT.RAD.BRZ ordered. EDMS EDMS 13:54 13:51 Abdomen Pelvis W Con+CT.RAD.BRZ ordered. EDOK EDMS 15:29 15:15 12/19/2019 15:15 Discharged to Home. Impression: Diverticulitis of large ll2 intestine without perforation or abscess without bleeding. Condition is Stable. Forms are Medication Reconciliation Form, Thank You Letter, Antibiotic Education, Prescription Opioid Use. Follow up: Private Physician; When: 2 - 3 days; Reason: Recheck today's complaints, Continuance of care, Re-evaluation by your physician. julieth
--- NOTE | 2019-12-19 15:16 | ER ---
Nurse's Notes [facility] Name: Davonte Boucher Age: 49 yrs Sex: Male : 1970 Arrival Date: 12/19/2019 Time: 12:41 Bed 20 Private MD: Diagnosis: Diverticulitis of large intestine without perforation or abscess without bleeding Presentation: 12/18 12:45 Chief complaint: Patient states: generalized abd cramping, pt reports it got worse aa5 today. denies n/v/d, denies fever. Coronavirus screen: Client denies travel out of the [place] in the last 14 days. At this time, the client does not indicate any symptoms associated with coronavirus-19. Ebola Screen: Patient negative for fever greater than or equal to 101.5 degrees Fahrenheit, and additional compatible Ebola Virus Disease symptoms. Initial Sepsis Screen: Does the patient meet any 2 criteria? No. Patient's initial sepsis screen is negative. Does the patient have a suspected source of infection? No. Patient's initial sepsis screen is negative. Risk Assessment: Do you want to hurt yourself or someone else? Patient reports no desire to harm self or others. Onset of symptoms was November 2019. 12:45 Acuity: PADMINI 3 aa5 12:45 Method Of Arrival: Ambulatory aa5 Historical: - Allergies: 12:45 NKA; aa5 - Home Meds: 12:45 None [Active]; aa5 - PMHx: 12:45 Diverticulitis; GI Bleed; Hypertension; aa5 - PSHx: 12:45 None; aa5 - Immunization history:: Adult Immunizations unknown. - Social history:: Smoking status: Patient reports the use of cigarette tobacco products, smokes one-half pack cigarettes per day. Screenin:02 Abuse screen: Denies threats or abuse. Nutritional screening: No deficits noted. ll2 Tuberculosis screening: No symptoms or risk factors identified. Fall Risk None identified. Assessment: 12:59 General: Appears in no apparent distress. Behavior is calm, cooperative, appropriate ll2 for age. Pain: Complains of pain in right upper quadrant, left upper quadrant, right lower quadrant and left lower quadrant. Pain: Pain radiates to low back area and right low back Pain currently is 9 out of 10 on a pain scale. Pain began 2-3 days ago. Is continuous. Neuro: Level of Consciousness is awake, alert, obeys commands, Oriented to person, place, time, situation. Cardiovascular: Capillary refill < 3 seconds Patient's skin is warm and dry. Respiratory: Airway is patent Respiratory effort is even, unlabored, Respiratory pattern is regular, symmetrical. GI: Abdomen is tender to palpation X 4 quads. Reports cramping, pt states he is cramping X4 quads that is continuous and unrelenting. : No signs and/or symptoms were reported regarding the genitourinary system. EENT: No signs and/or symptoms were reported regarding the EENT system. Derm: Skin is intact, is healthy with good turgor, Skin is dry, Skin is pink, warm \T\ dry. Musculoskeletal: Circulation, motion, and sensation intact. Range of motion: intact in all extremities. 13:02 GI: Bowel sounds present X 4 quads. ll2 14:21 Reassessment: Patient appears in no apparent distress at this time. pt states his pain ll2 is back at an 8/10, ERP notified see [facility] for orders. 14:45 Reassessment: pt reports decreased pain rated 0/10 at this time, ERP notified. ll2 Vital Signs: 12:45 BP 135 / 89; Pulse 92; Resp 18 S; Temp 98.2(O); Pulse Ox 97% on R/A; Weight 117.93 kg aa5 (R); Height 5 ft. 9 in. (175.26 cm) (R); Pain 6/10; 12:49 BP 146 / 91; Pulse 97; Resp 16; Pulse Ox 95% on R/A; Pain 9/10; ll2 13:50 BP 124 / 84; Pulse 85; Resp 14; Pulse Ox 95% on R/A; Pain 0/10; ll2 14:39 BP 141 / 86; Pulse 80; Resp 15; Pulse Ox 96% on R/A; ll2 12:45 Body Mass Index 38.39 (117.93 kg, 175.26 cm) aa5 ED Course: 12:41 Patient arrived in ED. mr 12:46 Triage completed. aa5 12:46 Arm band placed on. aa5 12:46 Pulse ox on. NIBP on. ll2 12:46 Warm blanket given. ll2 12:48 Margarita Vance RN is Primary Nurse. jl7 12:50 [facility]varado PA [facility] 12:50 Rob Rashid MD is Attending Physician. [facility] 13:02 Patient has correct armband on for positive identification. Bed in low position. Call ll2 light in reach. Side rails up X 1. 13:08 Primary Nurse role handed off by Margarita Vance RN jl7 13:08 Jenny Brown RN is Primary Nurse. jl7 13:25 Missed attempt(s): 20 gauge in right antecubital area. Bleeding controlled, band aid ll2 applied, catheter tip intact. 13:30 Inserted saline lock: 20 gauge in left antecubital area, using aseptic technique. Blood ll2 collected. 13:30 Initial lab(s) drawn, by me, sent to lab. Urine collected: clean catch specimen, clear. ll2 13:30 No provider procedures requiring assistance completed. ll2 13:32 Urine Dipstick--Ancillary (enter results) Sent. ll2 14:16 CT Abd/Pelvis - IV Contrast Only In Process Unspecified. EDMS 15:27 IV discontinued, bleeding controlled, No redness/swelling at site. Pressure dressing ll2 applied. Administered Medications: 13:31 Drug: morphine 4 mg Route: IVP; Site: left antecubital; ll2 13:31 Follow up: Response: No adverse reaction ll2 13:32 Follow up: Response: RASS: Alert and Calm (0) ll2 13:31 Drug: Zofran (Ondansetron) 4 mg Route: IVP; Site: left antecubital; ll2 13:32 Follow up: Response: Nausea is decreased ll2 14:00 Drug: NS 0.9% 1000 ml Route: IV; Rate: 1 bolus; Site: left antecubital; ll2 15:28 Follow up: IV Status: Completed infusion ll2 14:29 Drug: Dilaudid 0.5 mg Route: IVP; Site: left antecubital; ll2 14:30 Follow up: Response: RASS: Alert and Calm (0) ll2 15:28 Follow up: Response: No adverse reaction; RASS: Alert and Calm (0) ll2 14:45 Drug: LevaQUIN 750 mg Route: PO; ll2 15:28 Follow up: Response: No adverse reaction ll2 14:45 Drug: Flagyl 500 mg Route: PO; ll2 15:27 Follow up: Response: No adverse reaction ll2 Outcome: 15:15 Discharge ordered by MD. clancy 15:26 Discharged to home ambulatory. ll2 15:26 Condition: stable 15:26 Discharge instructions given to patient, Instructed on discharge instructions, follow up and referral plans. medication usage, Demonstrated understanding of instructions, follow-up care, medications, Prescriptions given X 4. 15:29 Patient left the ED. ll2 Signatures: Dispatcher [employer] EDMS Ashok Alvarado PA PA jmm Adriana Gamez, Demi, RN RN aa5 Margarita Vance RN RN jl7 Jenny Brown RN RN ll2 Corrections: (The following items were deleted from the chart) 14:49 14:21 Reassessment: Patient appears in no apparent distress at this time. pt states his ll2 pain is back at an 8/10 ll2 14:49 14:21 Pain: Pain currently is 8 out of 10 on a pain scale. Quality of pain is described ll2 as crampy, ll2 14:53 13:30 Inserted saline lock: 20 gauge in left antecubital area, using aseptic technique. ll2 Missed attempt(s): 20 gauge in right antecubital area. ll2
[2019-12-23 13:22] VITALS: TEMP 98.2
[2019-12-23 13:26] VITALS: BP 141/86; O2SAT 96
== END 2019-12-19 15:29 | disposition home or self-care (01) ==
LOC: ER 12:38
DX: K57.32 Diverticulitis of large intestine without perforation or abscess without bleeding (principal); I10 Essential (primary) hypertension; F17.210 Nicotine dependence, cigarettes, uncomplicated
CPT/HCPCS: 36415; 74177; 80048; 80076; 81003; 82565; 83690; 85025; 96361; 96374; 96375; 99284; J1170; J2405; J7030; Q9967

== ENCOUNTER 2020-01-02 12:42 | Emergency (ER) | payer SELFPAY ==
--- OUTSIDE RECORDS SUMMARY | 2020-01-02 12:44 | XMS REPORT | Continuity of Care Document ---
:1970 Author Organization [facility] t Address [address] [place] [address] [address] [place] [address] Care Team Providers Name Role Phone Kristofer Chappell MD Attending Clinician Problems This patient has no known problems. Allergies, Adverse Reactions, Alerts This patient has no known allergies or adverse reactions. Medications This patient has no known medications. Procedures This patient has no known procedures. Encounters Start End Encounter Admission Attending Care Care Encounter Source Date/Time Date/Time Type Type Clinicians Facility Department ID 2019-12-09 2019-12-09 Office MALVIN Chappell [id number] [id number] 08:41:01 08:55:58 Visit Everett PURVIS [id number] Kristofer RO [id number] CENTER AT [id number] LEISA [address] [place] [address] Results This patient has no known results.
--- NOTE | 2020-01-02 14:37 | ER ---
Nurse's Notes [facility] Name: Davonte Boucher Age: 49 yrs Sex: Male : 1970 Arrival Date: 01/02/2020 Time: 12:44 Bed 16 Private MD: Diagnosis: Presentation: 01/01 13:08 Chief complaint: Patient states: "It happened while at work, I don't know if it is a jd3 disk or what, but my back is hurting pretty bad.". Coronavirus screen: At this time, the client does not indicate any symptoms associated with coronavirus-19. Ebola Screen: Patient negative for fever greater than or equal to 101.5 degrees Fahrenheit, and additional compatible Ebola Virus Disease symptoms. Initial Sepsis Screen: Does the patient meet any 2 criteria? No. Patient's initial sepsis screen is negative. Does the patient have a suspected source of infection? No. Patient's initial sepsis screen is negative. Risk Assessment: Do you want to hurt yourself or someone else? Patient reports no desire to harm self or others. Onset of symptoms was January 02, 2020. 13:08 Method Of Arrival: Ambulatory jd3 13:08 Acuity: PADMINI 3 jd3 Historical: - Allergies: 13:09 NKA; jd3 - Home Meds: 13:09 None [Active]; jd3 - PMHx: 13:09 Hypertension; jd3 - PSHx: 13:09 None; jd3 - Immunization history:: Adult Immunizations up to date. - Social history:: Smoking status: Patient reports the use of cigarette tobacco products, denies chronic smoking, but will smoke occasionally. Vital Signs: 13:09 BP 132 / 82; Pulse 75; Resp 16 S; Temp 98.7(TE); Pulse Ox 97% on R/A; Weight 108.86 kg jd3 (R); Height 5 ft. 9 in. (175.26 cm) (R); Pain 9/10; 13:09 Body Mass Index 35.44 (108.86 kg, 175.26 cm) jd3 ED Course: 12:44 Patient arrived in ED. mr 13:09 Triage completed. jd3 13:10 Arm band placed on. jd3 14:18 Radha Mann MD is Attending Physician. ma2 14:36 Yevgeniy French MARTY is Primary Nurse. ll1 Administered Medications: No medications were administered Outcome: 14:36 Patient left the ED. ll1 Signatures: Adriana Gamez Jonathon, RN RN jd3 Radha Mann MD MD co2 Yevgeniy French, MARTY RN ll1
[2020-01-02 14:52] VITALS: BP 132/82; TEMP 98.7; O2SAT 97
== END 2020-01-02 14:36 | disposition left against medical advice (07) ==
LOC: ER 12:42
DX: Z53.21 Procedure and treatment not carried out due to patient leaving prior to being seen by health care provider (principal)
CPT/HCPCS: 99281

== ENCOUNTER 2020-03-30 12:32 | Emergency (ER) | payer SELFPAY ==
--- NOTE | 2020-03-30 13:22 | ER ---
Nurse's Notes [facility] Name: Davonte Boucher Age: 49 yrs Sex: Male : 1970 Arrival Date: 03/30/2020 Time: 12:33 Bed 18 Private MD: Aleks Zepeda V Diagnosis: Low back pain Presentation: 03/30 12:47 Chief complaint: Patient states: left low back pain that began "a while back but aa5 yesterday I was bending over and it flared up again". Coronavirus screen: Client denies travel out of the [place] in the last 14 days. At this time, the client does not indicate any symptoms associated with coronavirus-19. Ebola Screen: Patient negative for fever greater than or equal to 101.5 degrees Fahrenheit, and additional compatible Ebola Virus Disease symptoms. Initial Sepsis Screen: Does the patient meet any 2 criteria? No. Patient's initial sepsis screen is negative. Does the patient have a suspected source of infection? No. Patient's initial sepsis screen is negative. Risk Assessment: Do you want to hurt yourself or someone else? Patient reports no desire to harm self or others. Onset of symptoms was March 2020. 12:47 Method Of Arrival: Ambulatory aa5 12:47 Acuity: PADMINI 4 aa5 Triage Assessment: 13:00 General: Appears in no apparent distress. uncomfortable, Behavior is calm, cooperative, bp appropriate for age. Pain: Complains of pain in back. EENT: No deficits noted. Neuro: No deficits noted. Cardiovascular: No deficits noted. Respiratory: No deficits noted. GI: No signs and/or symptoms were reported involving the gastrointestinal system. : No signs and/or symptoms were reported regarding the genitourinary system. Derm: No deficits noted. Musculoskeletal: Circulation, motion, and sensation intact. Range of motion: intact in all extremities. Historical: - Allergies: 12:46 NKA; aa5 - Home Meds: 12:46 None [Active]; aa5 - PMHx: 12:46 Diverticulitis; GI Bleed; Hypertension; aa5 - PSHx: 12:46 None; aa5 - Immunization history:: Adult Immunizations unknown. - Social history:: Smoking status: Patient reports the use of cigarette tobacco products, smokes one-half pack cigarettes per day. Screenin:02 Abuse screen: Denies threats or abuse. Denies injuries from another. Nutritional bp screening: No deficits noted. Tuberculosis screening: No symptoms or risk factors identified. Fall Risk None identified. Assessment: 13:00 General: SEE TRIAGE NOTE. bp 13:00 Neuro: Level of Consciousness is awake, alert, obeys commands, Oriented to Appropriate bp for age. 13:38 Reassessment: Patient appears in no apparent distress at this time. Patient is alert, ca1 oriented x 3, equal unlabored respirations, skin warm/dry/pink. Vital Signs: 12:47 BP 155 / 97; Pulse 68; Resp 16 S; Temp 98.7(O); Pulse Ox 98% on R/A; Weight 113.4 kg aa5 (R); Height 5 ft. 9 in. (175.26 cm) (R); Pain 10/10; 13:38 BP 145 / 89; Pulse 71; Resp 16 S; Pulse Ox 99% on R/A; ca1 12:47 Body Mass Index 36.92 (113.40 kg, 175.26 cm) aa5 ED Course: 12:33 Patient arrived in ED. ag5 12:34 Aleks Zepeda MD is Private Physician. ag5 12:46 Arm band placed on Patient placed in an exam room, on a stretcher. aa5 12:48 Triage completed. aa5 12:51 Isabella Lucia FNP-C [facility]. kb 12:51 Radha Mann MD is Attending Physician. kb 12:58 Bernardo Longo, MARTY is Primary Nurse. bp 13:02 Patient has correct armband on for positive identification. Bed in low position. Call bp light in reach. Side rails up X2. 13:38 No provider procedures requiring assistance completed. Patient did not have IV access ca1 during this emergency room visit. Administered Medications: 13:25 Drug: [place] 10 mg-325 mg 1 tabs {Note: rass 0.} Route: PO; ca1 13:38 Follow up: Response: Medication administered at discharge. ca1 Outcome: 13:21 Discharge ordered by . kb 13:38 Discharged to home ambulatory. ca1 13:38 Condition: stable 13:38 Condition: stable 13:38 Discharge instructions given to patient, Instructed on discharge instructions, follow up and referral plans. no drinking with medication, no driving heavy equipment, medication usage, Demonstrated understanding of instructions, follow-up care, medications, Prescriptions given X 2. 13:39 Patient left the ED. ca1 Signatures: Isabella Lucia, ANGELICA VILLASENOR-Demi Ceron, RN RN aa5 Bernardo Longo RN RN bp Kayley Sood RN RN ca1 Jorden, [place] 5
--- NOTE | 2020-03-30 13:22 | EDPHYS ---
Physician Documentation [facility] Name: Davonte Boucher Age: 49 yrs Sex: Male : 1970 Arrival Date: 03/30/2020 Time: 12:33 Bed 18 Private MD: Aelks Zepeda V ED Physician Radha Mann HPI: 03/30 13:18 This 49 yrs old Black Male presents to ER via Ambulatory with complaints of Back Pain. kb 13:18 The patient presents with pain that is chronic, with no known mechanism of injury. The kb symptoms are located in the low back. Onset: The symptoms/episode began/occurred today. The pain radiates to the left leg. Associated signs and symptoms: The patient has no apparent associated signs or symptoms. The problem was sustained when bending over, from a chronic condition. Modifying factors: The patient symptoms are alleviated by nothing, the patient symptoms are aggravated by any movement. Severity of symptoms: At their worst the symptoms were moderate, in the emergency department the symptoms are unchanged. The patient has experienced similar episodes in the past, chronically. The patient has not recently seen a physician. Pt states "I've been having this back pain and it flared up today when I bent over at work. Trudi did x-rays and scans but I guess I need a MRI.". Historical: - Allergies: 12:46 NKA; aa5 - Home Meds: 12:46 None [Active]; aa5 - PMHx: 12:46 Diverticulitis; GI Bleed; Hypertension; aa5 - PSHx: 12:46 None; aa5 - Immunization history:: Adult Immunizations unknown. - Social history:: Smoking status: Patient reports the use of cigarette tobacco products, smokes one-half pack cigarettes per day. ROS: 13:17 Constitutional: Negative for fever, chills, and weight loss, Cardiovascular: Negative kb for chest pain, palpitations, and edema, Respiratory: Negative for shortness of breath, cough, wheezing, and pleuritic chest pain, Abdomen/GI: Negative for abdominal pain, nausea, vomiting, diarrhea, and constipation, : Negative for injury, bleeding, discharge, and swelling, MS/Extremity: Negative for injury and deformity, Skin: Negative for injury, rash, and discoloration, Neuro: Negative for headache, weakness, numbness, tingling, and seizure. 13:17 Back: Positive for pain at rest, pain with movement, of the left low back. Exam: 13:17 Constitutional: This is a well developed, well nourished patient who is awake, alert, kb and in no acute distress. Head/Face: Normocephalic, atraumatic. Chest/axilla: Normal chest wall appearance and motion. Nontender with no deformity. No lesions are appreciated. Cardiovascular: Regular rate and rhythm with a normal S1 and S2. No gallops, murmurs, or rubs. Normal PMI, no JVD. No pulse deficits. Respiratory: Lungs have equal breath sounds bilaterally, clear to auscultation and percussion. No rales, rhonchi or wheezes noted. No increased work of breathing, no retractions or nasal flaring. Abdomen/GI: Soft, non-tender, with normal bowel sounds. No distension or tympany. No guarding or rebound. No evidence of tenderness throughout. Skin: Warm, dry with normal turgor. Normal color with no rashes, no lesions, and no evidence of cellulitis. MS/ Extremity: Pulses equal, no cyanosis. Neurovascular intact. Full, normal range of motion. Neuro: Awake and alert, GCS 15, oriented to person, place, time, and situation. Cranial nerves II-XII grossly intact. Motor strength 5/5 in all extremities. Sensory grossly intact. Cerebellar exam normal. Normal gait. 13:17 Back: pain, that is moderate, of the left low back, ROM is painful, with all movement, normal spinal alignment noted, CVA tenderness, is absent. Vital Signs: 12:47 BP 155 / 97; Pulse 68; Resp 16 S; Temp 98.7(O); Pulse Ox 98% on R/A; Weight 113.4 kg aa5 (R); Height 5 ft. 9 in. (175.26 cm) (R); Pain 10/10; 13:38 BP 145 / 89; Pulse 71; Resp 16 S; Pulse Ox 99% on R/A; ca1 12:47 Body Mass Index 36.92 (113.40 kg, 175.26 cm) aa5 MDM: 12:51 Patient medically screened. kb 13:17 Data reviewed: vital signs, nurses notes. Data interpreted: Pulse oximetry: on room air kb is 98 %. Interpretation: normal. Counseling: I had a detailed discussion with the patient and/or guardian regarding: the historical points, exam findings, and any diagnostic results supporting the discharge/admit diagnosis, the need for outpatient follow up, a family practitioner, to return to the emergency department if symptoms worsen or persist or if there are any questions or concerns that arise at home. 03/30 13:14 Order name: Urine Dipstick--Ancillary (enter results) bd Administered Medications: 13:25 Drug: [place] 10 mg-325 mg 1 tabs {Note: rass 0.} Route: PO; ca1 13:38 Follow up: Response: Medication administered at discharge. ca1 Disposition: 18:33 Co-signature as Attending Physician, Radha Mann MD. ma2 Disposition: 03/30/20 13:21 Discharged to Home. Impression: Low back pain. - Condition is Stable. - Discharge Instructions: Back Injury Prevention, Ugun-xs-Lcwd, Back Pain, Adult, Rier-ha-Eifz, Back Exercises, Pyxn-ia-Lhgn. - Prescriptions for Cyclobenzaprine 10 mg Oral Tablet - take 1 tablet by ORAL route every 8 hours As needed; 21 tablet. Diclofenac Sodium 75 mg Oral Tablet, Delayed Release (E.C.) - take 1 tablet by ORAL route 2 times per day As needed; 30 tablet. - Medication Reconciliation Form, Thank You Letter, Antibiotic Education, Prescription Opioid Use, Work release form form. - Follow up: Emergency Department; When: As needed; Reason: Worsening of condition. Follow up: Private Physician; When: 2 - 3 days; Reason: Recheck today's complaints, Continuance of care, Re-evaluation by your physician. Signatures: Dispatcher [employer] Isabella Richard, [employer] OPERATOR-C HAMILTON-Deim Ceron RN RN aa5 Radha Mann MD MD ma2 Kayley Sood RN RN ca1 Corrections: (The following items were deleted from the chart) 13:18 13:17 Back: pain, that is moderate, of the left low back, ROM is painful, with all kb movement, normal spinal alignment noted, kb 13:39 13:21 03/30/2020 13:21 Discharged to Home. Impression: Low back pain. Condition is ca1 Stable. Forms are Medication Reconciliation Form, Thank You Letter, Antibiotic Education, Prescription Opioid Use. Follow up: Emergency Department; When: As needed; Reason: Worsening of condition. Follow up: Private Physician; When: 2 - 3 days; Reason: Recheck today's complaints, Continuance of care, Re-evaluation by your physician. kb
[2020-03-30] MEDS ORDERED: HYDROCODONE/APAP 10/325 TAB ONE (13:39)
[2020-03-30 15:18] LABS: Urine Blood 1+ (NEG); Urine Glucose NEGATIVE (NEG); Urine Protein NEGATIVE (NEG); Urine Specific Gravity 1.025 (1.005-1.030); Urine pH 5.5 (5.0-7.0)
--- OUTSIDE RECORDS SUMMARY | 2020-03-30 17:30 | XMS REPORT | Continuity of Care Document ---
:1970 Author Organization [facility] t Address [address] [place] [address] [address] [place] [address] Care Team Providers Name Role Phone Kristofer [...] Department ID 2019-12-09 2019-12-09 Office MALVIN Chappell [id number] 08:41:01 08:55:58 Visit Everett PURVIS [id number] Kristofer RO [id number] CENTER AT [phone] LEISA [address] [place] [address] Results This patient has no known results.
== END 2020-03-30 13:39 | disposition home or self-care (01) ==
LOC: ER 12:32
DX: M54.5 Low back pain (principal); I10 Essential (primary) hypertension; F17.210 Nicotine dependence, cigarettes, uncomplicated
CPT/HCPCS: 81003; 99283

== ENCOUNTER 2020-08-30 10:54 | Emergency (ER) | payer SELFPAY ==
--- OUTSIDE RECORDS SUMMARY | 2020-08-30 10:56 | XMS REPORT | Continuity of Care Document ---
:1970 Author Organization [facility] t Address [address] [place] [address] Care Team Providers Name Role Phone Kristofer [...] Department ID 2019-12-09 2019-12-09 Office MALVIN Chappell [id number] 08:41:01 08:55:58 Visit Everett PURVIS [id number] Kristofer RO [id number] CENTER AT [phone] LEISA [address] [place] [address] Results This patient has no known results.
--- NOTE | 2020-08-30 12:12 | ER ---
Nurse's Notes [facility] Name: Davonte Boucher Age: 49 yrs Sex: Male : 1970 Arrival Date: 08/30/2020 Time: 10:55 Bed Waiting Private MD: Diagnosis: Presentation: 08/30 11:05 Chief complaint: Patient states: "my right hand won't stop cramping. this has been jd3 going on for about a week. it was to the point the other day where I almost couldn't do nothing with it.". Coronavirus screen: At this time, the client does not indicate any symptoms associated with coronavirus-19. Ebola Screen: Patient negative for fever greater than or equal to 101.5 degrees Fahrenheit, and additional compatible Ebola Virus Disease symptoms. Initial Sepsis Screen: Does the patient meet any 2 criteria? No. Patient's initial sepsis screen is negative. Does the patient have a suspected source of infection? No. Patient's initial sepsis screen is negative. Risk Assessment: Do you want to hurt yourself or someone else? Patient reports no desire to harm self or others. Onset of symptoms was August 23, 2020. 11:05 Method Of Arrival: Ambulatory jd3 11:05 Acuity: PADMINI 3 jd3 Historical: - Allergies: 11:06 NKA; jd3 - Home Meds: 11:06 None [Active]; jd3 - PMHx: 11:06 Diverticulitis; GI Bleed; Hypertension; jd3 - PSHx: 11:06 None; jd3 - Immunization history:: Adult Immunizations up to date. - Social history:: Smoking status: Patient reports the use of cigarette tobacco products, smokes one-half pack cigarettes per day. Vital Signs: 11:06 BP 156 / 102; Pulse 69; Resp 17 S; Temp 98.2(TE); Pulse Ox 97% on R/A; Weight 113.4 kg jd3 (R); Height 5 ft. 8 in. (172.72 cm) (R); Pain 8/10; 11:06 Body Mass Index 38.01 (113.40 kg, 172.72 cm) jd3 ED Course: 10:55 Patient arrived in ED. as 11:06 Triage completed. jd3 11:09 Arm band placed on. jd3 Administered Medications: No medications were administered Outcome: 12:10 Eloped from waiting room, before seeing physician Time discovered patient gone: August 30, jd3 2020 at 12:10 12:11 Patient left the ED. hayes Signatures: Caity Goins Jonathon, RN RN jd3
[2020-08-30 12:18] VITALS: BP 156/102; TEMP 98.2; O2SAT 97
== END 2020-08-30 12:11 | disposition left against medical advice (07) ==
LOC: ER 10:54
DX: Z53.21 Procedure and treatment not carried out due to patient leaving prior to being seen by health care provider (principal)
CPT/HCPCS: 99281

== ENCOUNTER 2021-02-16 03:55 | Emergency (ER) | payer SELFPAY ==
[2021-02-16] MEDS ORDERED: ASPIRIN 81 MG CHEWABLE TABLET ONE (05:03)
[2021-02-16] MEDS ORDERED: NA CHLORIDE 0.9% 1,000 ML ONE (05:03)
[2021-02-16] MEDS ORDERED: FAMOTIDINE 20 MG/2 ML VIAL IV ONE (05:03)
[2021-02-16] MEDS ORDERED: DIAZEPAM 5 MG TABLET ONE (05:39)
[2021-02-16] MEDS ORDERED: KETOROLAC 30 MG/ML INJ ONE (05:39)
[2021-02-16 06:04] LABS: Protime INR 0.97
[2021-02-16 06:05] LABS: Absolute Lymphocytes (CBC) 2.4 K/uL (0.7-4.9); Basophils % 0.9 % (0-1.3); Hematocrit 44.8 % (39.6-49.0); Lymphocytes % 36.5 % (15.3-44.8); MPV 8.4 fL (7.6-11.3); RBC Red Blood Cell Count 4.84 M/uL (4.33-5.43)
[2021-02-16 06:15] LABS: ALT/SGPT 78 U/L (12-78); AST/SGOT 32 U/L (15-37); Albumin 3.6 g/dL (3.4-5.0); Alkaline Phosphatase 66 U/L (45-117); BUN Blood Urea Nitrogen 24 mg/dL (7-18); Bicarbonate 24 mmol/L (21-32); Bilirubin Direct < 0.1 mg/dL (0-0.2); Bilirubin Total 0.2 mg/dL (0.2-1.0); Glucose Level 125 mg/dL (74-106); Lipase 91 U/L (73-393); Magnesium 1.9 mg/dL (1.8-2.4); Potassium 3.9 mmol/L (3.5-5.1); Sodium Level 142 mmol/L (136-145); Troponin (Emerg Dept Use Only) < 0.02 ng/mL (0.0-0.045)
[2021-02-16 06:16] LABS: NT PRO-BNP < 5 pg/mL (<125)
--- NOTE | 2021-02-16 07:15 | ER ---
Nurse's Notes [facility] Name: Davonte Boucher Age: 50 yrs Sex: Male : 1970 Arrival Date: 02/16/2021 Time: 04:00 Bed 14 Private MD: Diagnosis: Chest pain, unspecified-CHEST WALL, MUSCULOSKELETAL;Chest pain on breathing Presentation: 02/16 04:20 Chief complaint: Patient states: midsternal, non radiating chest pain with sob x 2-3 sj1 days, states he was lifting weights when it started, denies n/v/d. Coronavirus screen: Vaccine status: Patient reports receiving the 2nd dose of the covid vaccine. Ebola Screen: No symptoms or risks identified at this time. Initial Sepsis Screen: Does the patient meet any 2 criteria? No. Patient's initial sepsis screen is negative. Does the patient have a suspected source of infection? No. Patient's initial sepsis screen is negative. Onset of symptoms was February 13, 2021. 04:20 Method Of Arrival: Ambulatory sj1 04:20 Acuity: PADMINI 3 sj1 04:27 Risk Assessment: Do you want to hurt yourself or someone else? Patient reports no sj1 desire to harm self or others. 06:17 Note Pt resting with eyes closed, snoring. Waiting for CR results for Pt to go to CT df1 Scan. Triage Assessment: 04:23 General: Appears in no apparent distress. Behavior is calm, cooperative, appropriate sj1 for age. Pain: Complains of pain in chest Pain does not radiate. Pain currently is 8 out of 10 on a pain scale. at worst was 10 out of 10 on a pain scale. level that patient reports is acceptable is 0 out of 10 on a pain scale. Quality of pain is described as pressure, sharp, Pain began 2-3 days ago. Is intermittent, Alleviated by nothing. Aggravated by increased activity. EENT: No signs and/or symptoms were reported regarding the EENT system. Neuro: Level of Consciousness is awake, alert, obeys commands, Oriented to person, place, time, situation. Cardiovascular: Reports chest pain, shortness of breath. Respiratory: Reports shortness of breath at rest on exertion. GI: No signs and/or symptoms were reported involving the gastrointestinal system. : No signs and/or symptoms were reported regarding the genitourinary system. Derm: No signs and/or symptoms reported regarding the dermatologic system. Musculoskeletal: No signs and/or symptoms reported regarding the musculoskeletal system. Historical: - Allergies: 04:23 NKA; sj1 - Home Meds: 04:23 Excedrin Migraine oral [Active]; sj1 - PMHx: 04:23 Diverticulitis; Hypertension; sj1 - PSHx: 04:23 None; sj1 - Immunization history:: Client reports receiving the 2nd dose of the Covid vaccine. - Social history:: Smoking status: Patient reports the use of cigarette tobacco products, smokes one-half pack cigarettes per day, Patient uses alcohol, Patient/guardian denies using street drugs. - Family history:: not pertinent. Screenin:26 Abuse screen: Denies threats or abuse. Denies injuries from another. Nutritional sj1 screening: No deficits noted. Tuberculosis screening: No symptoms or risk factors identified. Fall Risk None identified. Assessment: 05:09 General: Appears uncomfortable, Behavior is calm, cooperative. Pain: Complains of pain df1 in anterior aspect of right upper chest, anterior aspect of left upper chest, xiphoid area, mid-sternal area, right breast and left breast Pain does not radiate. Pain currently is 8 out of 10 on a pain scale. Neuro: No deficits noted. Cardiovascular: No deficits noted. Respiratory: No deficits noted. Airway is patent Trachea midline Respiratory effort is even, unlabored, Respiratory pattern is regular, symmetrical, Breath sounds are clear bilaterally. GI: No deficits noted. : No deficits noted. EENT: No deficits noted. Musculoskeletal: No deficits noted. 07:15 General: Reports " I would really like something to go home for my headaches.". Pain: tw5 Pain currently is 8 out of 10 on a pain scale. 07:28 General: Talked to provider, Doc stated patient actually isn't up for discharge still tw5 awaiting pending results. . 07:44 General: Nursing staff advocated for [id number] 50-325-40 mg refill for patient. tw5 Provider stated that need to follow up with a a primary for that medication. . Vital Signs: 04:20 BP 140 / 79; Pulse 67; Resp 20 S; Temp 98.3(O); Pulse Ox 98% on R/A; Weight 113.4 kg sj1 (R); Height 5 ft. 8 in. (172.72 cm); Pain 8/10; 04:30 BP 135 / 80; Pulse 65; Resp 18; Pulse Ox 98% on R/A; df1 05:25 BP 136 / 70; Pulse 69; Resp 18; Pulse Ox 98% on R/A; df1 06:18 BP 130 / 72; Pulse 66; Resp 18; Pulse Ox 100% on R/A; df1 07:15 BP 137 / 75; Pulse 67; Resp 18; Pulse Ox 98% on R/A; Pain 8/10; tw5 07:57 BP 138 / 77; Pulse 65; Resp 18; Temp 97.5(O); Pulse Ox 100% on R/A; Pain 8/10; tw5 04:20 Body Mass Index 38.01 (113.40 kg, 172.72 cm) [facility] ED Course: 04:00 Patient arrived in ED. wm 04:04 Jose Fontenot MD is Attending Physician. safia 04:23 Triage completed. sj1 04:23 Dorita Degroot is Primary Nurse. df1 04:23 Arm band placed on right wrist. sj1 04:26 Patient has correct armband on for positive identification. fairing worker on. Pulse sj1 ox on. NIBP on. 04:26 Inserted saline lock: 20 gauge in right antecubital area, using aseptic technique. sj1 Blood collected. Patient maintains SpO2 saturation greater than 95% on room air. 04:26 Inserted saline lock:. sj1 05:09 No provider procedures requiring assistance completed. df1 07:15 Demetri Shirley MD is Referral Physician. [facility] 07:15 Door closed. Noise minimized. Lights dimmed. Moved to private room. Verbal reassurance tw5 given. 07:57 IV discontinued, intact, bleeding controlled, No redness/swelling at site. Pressure tw5 dressing applied. Administered Medications: 04:40 Drug: NS 0.9% 1000 ml Route: IV; Rate: 125 ml/hr; Site: right antecubital; df1 05:23 Follow up: IV Status: Completed infusion; IV Intake: 250ml df1 04:40 Drug: Pepcid (famotidine) 20 mg Route: IVP; Site: right antecubital; df1 05:23 Follow up: Response: No adverse reaction df1 04:45 Drug: Aspirin Chewable Tablet 162 mg Route: PO; df1 05:22 Follow up: Response: No adverse reaction df1 05:18 Drug: Ketorolac 30 mg Route: IVP; Site: right antecubital; df1 05:23 Follow up: Response: No adverse reaction df1 05:18 Drug: Valium (diazepam) 5 mg Route: PO; df1 05:23 Follow up: Response: No adverse reaction df1 Intake: 05:23 IV: 250ml; Total: 250ml. df1 Outcome: 07:15 Discharge ordered by MD. baig 07:57 Discharged to home ambulatory. tw5 07:57 Condition: good 07:57 Discharge instructions given to patient, significant other, Instructed on discharge instructions, follow up and referral plans. no drinking with medication, no driving heavy equipment, medication usage, Demonstrated understanding of instructions, follow-up care, medications, Prescriptions given X 3, Community resources provided to patient. 08:01 Patient left the ED. tw5 Signatures: Jose Fontenot MD MD cha Marsh, Wendy wm Furlich, Dawn df1 Ruth Denson, RN RN sj1 Katlyn Sellers tw5 Corrections: (The following items were deleted from the chart) 04:25 04:23 PMHx: GI Bleed; sj1 sj1
--- NOTE | 2021-02-16 07:15 | EDPHYS ---
Physician Documentation [facility] Name: Davonte Boucher Age: 50 yrs Sex: Male : 1970 Arrival Date: 02/16/2021 Time: 04:00 Bed 14 Private MD: ED Physician Jose Fontenot HPI: 02/16 05:00 This 50 yrs old Black Male presents to ER via Ambulatory with complaints of Chest Pain safia > 30 y/o. 05:00 The patient or guardian reports chest pain that is located primarily in the anterior safia chest wall, bilaterally. Onset: 2 day(s) ago. The pain does not radiate. Associated signs and symptoms: Pertinent positives: shortness of breath. The chest pain is described as aching, sharp. Duration: The patient or guardian reports multiple episodes, that wax and wane. Severity of pain: At its worst the pain was moderate in the emergency department the pain is unchanged. The patient has not experienced similar symptoms in the past. Historical: - Allergies: 04:23 NKA; sj1 - Home Meds: 04:23 Excedrin Migraine oral [Active]; sj1 - PMHx: 04:23 Diverticulitis; Hypertension; sj1 - PSHx: 04:23 None; sj1 - Immunization history:: Client reports receiving the 2nd dose of the Covid vaccine. - Social history:: Smoking status: Patient reports the use of cigarette tobacco products, smokes one-half pack cigarettes per day, Patient uses alcohol, Patient/guardian denies using street drugs. - Family history:: not pertinent. ROS: 05:00 Constitutional: Negative for fever, chills, and weight loss, Eyes: Negative for injury, safia pain, redness, and discharge, ENT: Negative for injury, pain, and discharge, Neck: Negative for injury, pain, and swelling, Respiratory: Negative for shortness of breath, cough, wheezing, and pleuritic chest pain, Abdomen/GI: Negative for abdominal pain, nausea, vomiting, diarrhea, and constipation, Back: Negative for injury and pain, : Negative for injury, bleeding, discharge, and swelling, MS/Extremity: Negative for injury and deformity, Skin: Negative for injury, rash, and discoloration, Neuro: Negative for headache, weakness, numbness, tingling, and seizure, Psych: Negative for depression, anxiety, suicide ideation, homicidal ideation, and hallucinations, Allergy/Immunology: Negative for hives, rash, and allergies, Endocrine: Negative for neck swelling, polydipsia, polyuria, polyphagia, and marked weight changes, Hematologic/Lymphatic: Negative for swollen nodes, abnormal bleeding, and unusual bruising. 05:00 Cardiovascular: Positive for chest pain, with cough, of the chest. Exam: 05:01 Constitutional: This is a well developed, well nourished patient who is awake, alert, safia and in no acute distress. Head/Face: Normocephalic, atraumatic. Eyes: Pupils equal round and reactive to light, extra-ocular motions intact. Lids and lashes normal. Conjunctiva and sclera are non-icteric and not injected. Cornea within normal limits. Periorbital areas with no swelling, redness, or edema. ENT: Nares patent. No nasal discharge, no septal abnormalities noted. Tympanic membranes are normal and external auditory canals are clear. Oropharynx with no redness, swelling, or masses, exudates, or evidence of obstruction, uvula midline. Mucous membranes moist. Neck: Trachea midline, no thyromegaly or masses palpated, and no cervical lymphadenopathy. Supple, full range of motion without nuchal rigidity, or vertebral point tenderness. No Meningismus. Cardiovascular: Regular rate and rhythm with a normal S1 and S2. No gallops, murmurs, or rubs. Normal PMI, no JVD. No pulse deficits. Respiratory: Lungs have equal breath sounds bilaterally, clear to auscultation and percussion. No rales, rhonchi or wheezes noted. No increased work of breathing, no retractions or nasal flaring. Abdomen/GI: Soft, non-tender, with normal bowel sounds. No distension or tympany. No guarding or rebound. No evidence of tenderness throughout. Back: No spinal tenderness. No costovertebral tenderness. Full range of motion. Male : Normal genitalia with no discharge or lesions. Skin: Warm, dry with normal turgor. Normal color with no rashes, no lesions, and no evidence of cellulitis. MS/ Extremity: Pulses equal, no cyanosis. Neurovascular intact. Full, normal range of motion. Neuro: Awake and alert, GCS 15, oriented to person, place, time, and situation. Cranial nerves II-XII grossly intact. Motor strength 5/5 in all extremities. Sensory grossly intact. Cerebellar exam normal. Normal gait. Psych: Awake, alert, with orientation to person, place and time. Behavior, mood, and affect are within normal limits. 05:01 Chest/axilla: Inspection: normal, Palpation: tenderness, that is moderate, of the anterior aspect of right upper chest, anterior aspect of left upper chest, mid-sternal area, right lateral anterior chest, left lateral anterior chest, right breast and left breast. 05:01 Musculoskeletal/extremity: ROM: intact in all extremities, full active range of motion, full passive range of motion, Circulation is intact in all extremities. Sensation intact. Compartment Syndrome exam of affected extremity: is normal. DVT Exam: No signs of deep vein thrombosis. no pain, no swelling, no tenderness, negative Homans' sign noted on exam, no appreciated bluish discoloration, no erythema, no increased warmth. Vital Signs: 04:20 BP 140 / 79; Pulse 67; Resp 20 S; Temp 98.3(O); Pulse Ox 98% on R/A; Weight 113.4 kg [facility] (R); Height 5 ft. 8 in. (172.72 cm); Pain 8/10; 04:30 BP 135 / 80; Pulse 65; Resp 18; Pulse Ox 98% on R/A; df1 05:25 BP 136 / 70; Pulse 69; Resp 18; Pulse Ox 98% on R/A; df1 06:18 BP 130 / 72; Pulse 66; Resp 18; Pulse Ox 100% on R/A; df1 07:15 BP 137 / 75; Pulse 67; Resp 18; Pulse Ox 98% on R/A; Pain 8/10; tw5 07:57 BP 138 / 77; Pulse 65; Resp 18; Temp 97.5(O); Pulse Ox 100% on R/A; Pain 8/10; tw5 04:20 Body Mass Index 38.01 (113.40 kg, 172.72 cm) [facility] MDM: 04:04 Patient medically screened. safia 05:02 Differential diagnosis: abnormal EKG, acute myocardial infarction, acute pericarditis, safia coronary artery disease chest wall pain, hiatal hernia, pleurisy, pulmonary embolus, stable angina, thoracic aortic disection, unstable angina. HEART Score: History: Slightly Suspicious (0), ECG: Normal (0), Age: > 45 and < 65 years (1), Risk Factors: 1 or 2 risk factors (1), [Hypertension] [+ Family HX] Troponin: < or = 1 x Normal Limit (0). The patient was given aspirin in the Emergency Department. The patient's deep vein thrombosis risk score was calculated as follows: Total Score: 0. This patient was found to be at low risk for a deep vein thrombosis by using the Well's assessment criteria. The patient's pulmonary embolism risk score was calculated as follows: Total Score: 0-2 points. This patient was found to be at low risk for a pulmonary embolism by using the Well's assessment criteria. JOSEY Risk Score: TOTAL SCORE = 0. Data reviewed: vital signs, nurses notes, lab test result(s), EKG, radiologic studies, CT scan, plain films. Data interpreted: quality assurance monitor: rate is 67 beats/min, rhythm is regular, Pulse oximetry: on room air is 98 %. Test interpretation: by ED physician or midlevel provider: ECG, plain radiologic studies. Counseling: I had a detailed discussion with the patient and/or guardian regarding: the historical points, exam findings, and any diagnostic results supporting the discharge/admit diagnosis, the presence of at least one elevated blood pressure reading (>120/80) during this emergency department visit, lab results, radiology results, the need for outpatient follow up, for definitive care, a reimbursement spec, a family practitioner. 02/16 06:04 Order name: Protime (+INR); Complete Time: 06:30 EDMS 02/16 06:04 Order name: D-Dimer; Complete Time: 06:30 EDMS 02/16 06:05 Order name: CBC with Automated Diff; Complete Time: 06:30 EDMS 02/16 06:16 Order name: Basic Metabolic Panel; Complete Time: 06:30 EDMS 02/16 04:06 Order name: XRAY Chest (1 view) safia 02/16 04:58 Order name: CT Aorta for Dissection safia 02/16 06:16 Order name: Liver (Hepatic) Function; Complete Time: 06:30 EDMS 02/16 06:16 Order name: Troponin (Emerg Dept Use Only); Complete Time: 06:30 EDMS 02/16 06:16 Order name: NT PRO-BNP; Complete Time: 06:30 EDMS 02/16 06:16 Order name: Magnesium; Complete Time: 06:30 EDMS 02/16 06:16 Order name: Lipase; Complete Time: 06:30 EDMS 02/16 06:58 Order name: SARS-COV-2 RT PCR; Complete Time: 07:15 EDMS 02/16 07:21 Order name: CT; Complete Time: 07:26 EDMS 02/16 07:41 Order name: Troponin I; Complete Time: 07:43 EDMS 02/16 04:06 Order name: EKG; Complete Time: 16:49 [facility] 02/16 04:06 Order name: Cardiac monitoring; Complete Time: 04:24 [facility] 02/16 04:06 Order name: EKG - Nurse/Tech; Complete Time: 04:24 [facility] 02/16 04:06 Order name: IV Saline Lock; Complete Time: 04:24 [facility] 02/16 04:06 Order name: Labs collected and sent; Complete Time: 04:24 [facility] 02/16 04:06 Order name: O2 Per Protocol; Complete Time: 04:24 [facility] 02/16 04:06 Order name: O2 Sat Monitoring; Complete Time: 04:24 safia Administered Medications: 04:40 Drug: NS 0.9% 1000 ml Route: IV; Rate: 125 ml/hr; Site: right antecubital; df1 05:23 Follow up: IV Status: Completed infusion; IV Intake: 250ml df1 04:40 Drug: Pepcid (famotidine) 20 mg Route: IVP; Site: right antecubital; df1 05:23 Follow up: Response: No adverse reaction df1 04:45 Drug: Aspirin Chewable Tablet 162 mg Route: PO; df1 05:22 Follow up: Response: No adverse reaction df1 05:18 Drug: Ketorolac 30 mg Route: IVP; Site: right antecubital; df1 05:23 Follow up: Response: No adverse reaction df1 05:18 Drug: Valium (diazepam) 5 mg Route: PO; df1 05:23 Follow up: Response: No adverse reaction df1 Disposition Summary: 02/16/21 07:15 Discharge Ordered Location: Home safia Problem: new safia Symptoms: have improved safia Condition: Stable safia Diagnosis - Chest pain, unspecified - CHEST WALL, MUSCULOSKELETAL safia - Chest pain on breathing safia Followup: safia - With: Private Physician - When: 2 - 3 days - Reason: Recheck today's complaints, Continuance of care, Re-evaluation by your physician Followup: safia - With: - When: 2 - 3 days - Reason: Recheck today's complaints, Re-evaluation by your physician Discharge Instructions: - Discharge Summary Sheet safia - Nonspecific Chest Pain, Adult safia - Chest Wall Pain safia - Chest Wall Pain, [id number] safia - Aspirin and Your Heart [facility] Forms: - Medication Reconciliation Form [facility] - Thank You Letter [facility] - Antibiotic Education [facility] - Prescription Opioid Use [facility] Prescriptions: - Ibuprofen 600 mg Oral Tablet - take 1 tablet by ORAL route every 6 hours As needed take with food; 30 tablet; [facility] Refills: 0, Product Selection Permitted - Valium 5 mg Oral Tablet - take 1 tablet by ORAL route every 8 hours As needed; 20 tablet; Refills: 0, [facility] Product Selection Permitted - Tylenol-Codeine #3 300 mg-30 mg Oral - take 2 tablet by ORAL route every 4-6 hours; 20 tablet; Refills: 0, Product [facility] Selection Permitted Signatures: Dispatcher [employer] Isabella Richard, MOLD MOVER-C MOLD MOVER-Ckb Jose Fontenot MD MD cha Furlich, Dawn df1 Ruth Denson, RN RN sj1 Corrections: (The following items were deleted from the chart) 04:25 04:23 PMHx: GI Bleed; sj1 sj1 08:01 04:06 Urine Dipstick-Ancillary ordered. [facility] tw5
--- NOTE | 2021-02-16 07:21 | RAD REPORT ---
EXAM DESCRIPTION: CTAngio Aorta For Dissection - 02/16/2021 7:04 am CLINICAL HISTORY: Chest pain COMPARISON: Abdomen Pelvis W Contrast dated 12/19/2019 TECHNIQUE: CT of the chest, abdomen, and pelvis was performed. MIPS were performed. All CT scans are performed using dose optimization technique as appropriate and may include automated exposure control or mA/KV adjustment according to patient size. FINDINGS: Thorax: Chest Wall: No abnormal mass Lungs: No acute abnormality. Mild paraseptal emphysema. Pleura: No effusions or pneumothorax. Amisha/Mediastinum: No lymphadenopathy. Aorta/Pulmonary Arteries: Unremarkable Heart: Normal size. Abdomen/Pelvis: Liver: Low-density liver lesions are noted which are consistent with benign etiology such as hemangio mas. Biliary: No biliary ductal dilatation. Stomach: No significant focal abnormality. Duodenum: No significant focal abnormality. Pancreas: No significant abnormality. Spleen: No significant abnormality. Adrenal: No suspicious lesions. Kidney/ureter: No hydronephrosis. No renal calculi. Retroperitoneum: No retroperitoneal adenopathy. Vascular: No aneurysm. Bowel: Sigmoid wall thickening is noted.. Diverticulosis without diverticulitis. Normal appendix. Peritoneum: No ascites or free air. Bladder: Grossly unremarkable. Reproductive: No adnexal masses. Bones: No acute fracture. Posterior spurring and T7-T8 results in central spinal stenosis . Other: n/a IMPRESSION: No evidence of aortic aneurysm or dissection. No acute findings within the chest, abdome n, or pelvis. Sigmoid wall thickening which is chronic and may represent smooth muscle hypertrophy as result of chr onic diverticulitis. Suggest colonoscopy not recently obtained.
[2021-02-16 08:18] VITALS: BP 138/77; TEMP 97.5; O2SAT 100
--- NOTE | 2021-02-16 08:52 | RAD REPORT ---
EXAM DESCRIPTION: RAD - Chest Single View - 02/16/2021 8:45 am CLINICAL HISTORY: CHEST PAINS COMPARISON: Chest Single View dated 10/19/2017; Chest Single View dated 08/16/2017; Chest Single View dated 04/06/2016 FINDINGS: Lines: None. Lungs: No evidence of edema or pneumonia. Pleural: No significant pleural effusions or pneumothorax. Cardiac: The heart size is within normal limits. Bones: No acute fractures. Other: IMPRESSION: No acute cardiopulmonary disease.
--- NOTE | 2021-02-16 16:07 | EKG ---
Test Date: 2021-02-16 Test Time: 04:09:41 Frame Cleaner: MEASUREMENT RESULTS: Intervals: Rate: 63 AL: 122 QRSD: 100 QT: 392 QTc: 401 [place]: P: 47 AL: 122 QRS: 52 T: 39 INTERPRETIVE STATEMENTS: Normal sinus rhythm Normal ECG Compared to ECG 12/03/2018 12:00:26 Myocardial infarct finding no longer present Electronically Signed On 02-16-21 16:06:59 CDT by Demetri Shirley
== END 2021-02-16 08:01 | disposition home or self-care (01) ==
LOC: ER 03:55
DX: R07.1 Chest pain on breathing (principal); I10 Essential (primary) hypertension; F17.210 Nicotine dependence, cigarettes, uncomplicated; Z20.822 Contact with and (suspected) exposure to COVID-19
CPT/HCPCS: 36415; 71045; 71275; 74175; 80048; 80076; 83690; 83735; 83880; 84484; 85025; 85379; 85610; 93005; 96361; 96374; 96375; 99285; J7030; Q9967; U0003

== ENCOUNTER 2021-08-14 06:58 | Emergency (ER) | payer SELFPAY ==
--- OUTSIDE RECORDS SUMMARY | 2021-08-14 07:00 | XMS REPORT | Continuity of Care Document ---
:1970 Author Organization [facility] t Address [address] [place] [address] [address]. [address]. [address] [place] [address] Care Team Providers Name Role Phone PCP, DOES NOT HAVE A Primary Care Physician Unavailable HARJINDER PAGE Attending Clinician Unavailable ANENE Attending Clinician Unavailable Harjinder Page MD Attending Clinician Doctor Unassigned, Name Attending Clinician Unavailable Only, Bls Test Attending Clinician Unavailable HARJINDER PAGE Admitting Clinician Unavailable Harjinder Page MD Admitting Clinician Payers Payer Name Policy Type Policy Number Effective Date Expiration Date Alejandrina ABURTO COMM [id number] [facility] 00:[facility]:00 Problems Condition Condition Condition Status Onset Resolution Last Treating Co mments Source Name Details Category Date Date Treatment Clinician Date No known No known Disease Unive rs active active ity of problems problems [facility] Allergies, Adverse Reactions, Alerts Allergy Allergy Status Severity Reaction(s) Onset Inactive Treating Comm ents Source Name Type Date Date Clinician NO KNOWN Drug Active Univers ALLERGIE Class ity of S [facility] Social History Social Habit Start Date Stop Date Quantity Comments Source Sex Assigned At [facility] Medical Branch Exposure to Not sure [facility] SARS-CoV-2 (event) Medica l Branch Tobacco use and 2019-11-10 2019-11-10 Never used [facility] exposure 00:00:00 00:00:00 Medical [place] Smoking Status Start Date Stop Date Source Current every day smoker 2019-11-10 00:00:00 [facility] if [facility] [place] [facility] Medications Ordered Filled Start Stop Current Ordering Indication Dosage Frequency Signature Comments Components Source Medication Medication Date Date Medication? Clinician (SIG) Name Name traMADoL 50 2020-0 2020- No 4647 50mg Take 1 Uni vers mg tablet 12-08- tablet by ity of 00:00: 04:59 mouth [place] 00 :00 every 6 Medical (six) Branch hours as needed for Pain (scale 7-10) for up to 7 days. Indication s: acute pain traMADoL 50 2020-0 2019- No 4647 50mg Take 1 Uni vers mg tablet 12-08- tablet by ity of 00:00: 04:59 mouth [place] 00 :00 every 6 Medical (six) Branch hours as needed for Pain (scale 7-10) for up to 7 days. Indication s: acute pain HYDROcodone 2020-0 2019- No 2745 1{tbl} Take 1 U nivers -acetaminop 7-20 07-28 tablet by it y of hen (NORCO) 00:00: 04:[place] 5-[place] mg 00 :00 every 6 Medical tablet (six) Branch hours as needed for Pain (scale 7-10) for up to 7 days. Indication s: chronic pain HYDROcodone 2020-0 2019- No 2745 1{tbl} Take 1 U nivers -acetaminop 7-20 07-28 tablet by it y of hen (NORCO) 00:00: 04:59 [place] 5-325 mg 00 :00 every 6 Medical tablet (six) Branch hours as needed for Pain (scale 7-10) for up to 7 days. Indication s: chronic pain HYDROcodone 2020-0 2019- No 2745 1{tbl} Take 1 U nivers -acetaminop 7-20 07-28 tablet by it y of hen (NORCO) 00:00: 04:59 [place] 5-[place] mg 00 :00 every 6 Medical tablet (six) Branch hours as needed for Pain (scale 7-10) for up to 7 days. Indication s: chronic pain HYDROcodone 2020-0 Yes 4647 1{tbl} Take 1 Un cat -acetaminop 7-14 tablet by ity of hen 5-325 00:00: mouth [place] mg tablet 00 every 6 Medical (six) Branch hours as needed for Pain (scale 4-6) or Pain (scale 7-10). Indication s: acute pain HYDROcodone 2020-0 Yes 4647 1{tbl} Take 1 Un cat -acetaminop 7-14 tablet by ity of hen 5-325 00:00: mouth [place] mg tablet 00 every 6 Medical (six) Branch hours as needed for Pain (scale 4-6) or Pain (scale 7-10). Indication s: acute pain HYDROcodone 2020-0 Yes 4647 1{tbl} Take 1 Un cat -acetaminop 7-14 tablet by ity of hen 5-325 00:00: mouth [place] mg tablet 00 every 6 Medical (six) Branch hours as needed for Pain (scale 4-6) or Pain (scale 7-10). Indication s: acute pain HYDROcodone 2020-0 Yes 4647 1{tbl} Take 1 Un cat -acetaminop 7-14 tablet by ity of hen 5-325 00:00: mouth [place] mg tablet 00 every 6 Medical (six) Branch hours as needed for Pain (scale 4-6) or Pain (scale 7-10). Indication s: acute pain HYDROcodone 2020-0 Yes 4647 1{tbl} Take 1 Un cat -acetaminop 7-14 tablet by ity of hen 5-325 00:00: mouth [place] mg tablet 00 every 6 Medical (six) Branch hours as needed for Pain (scale 4-6) or Pain (scale 7-10). Indication s: acute pain HYDROcodone 2020-0 Yes 4647 1{tbl} Take 1 Un cat -acetaminop 7-14 tablet by ity of hen 5-325 00:00: mouth [place] mg tablet 00 every 6 Medical (six) Branch hours as needed for Pain (scale 4-6) or Pain (scale 7-10). Indication s: acute pain HYDROcodone 2020-0 Yes 4647 1{tbl} Take 1 Un cat -acetaminop 7-14 tablet by ity of hen 5-325 00:00: mouth [place] mg tablet 00 every 6 Medical (six) Branch hours as needed for Pain (scale 4-6) or Pain (scale 7-10). Indication s: acute pain lactated 2020-0 Yes 1000mL at 100 Unive rs ringers IV 7-07 mL/hr, ity of infusion 15:30: 1,000 [place], [place] 1[place]000 [place] 00 IV Medical Infusion, Branch CONTINUOUS , Starting Sun10/28/19 at 1030, Until Discontinu ed, Routine, PACU HYDROcodone 2020-0 2020- No 1{tbl} 1 tablet, Univers -acetaminop 10-27 Oral, ity of hen (NORCO 15:30: 15:50 ONCE, 1 Wei as 5) 5-325 mg 00 :00 dose, Tue Med ical tablet 1 10/28/19 at Branch tablet 1030, Routine, PACU HYDROmorpho 2020-0 Yes .2mg 0.2 mg, Uni vers ne 10-27 Slow IV ity of (DILAUDID) 15:17: Push, [place] injection 40 Q5MIN PRN, Medi charu 0.2 mg 10 doses, Branch Starting Sun10/28/19 at 1017, Until Discontinu ed, Routine, Pain (scale 7-10), PACU
Us e approved by (Faculty): PACU USE -ANESTHESI A SERVICE-HY DROMORPHON E INJECTIONS FENTanyl PF 2020-0 Yes 25ug 25 mcg, Uni vers (SUBLIMAZE 10-27 Slow IV ity of (PF)) 15:17: Push, [place] injection 40 Q5MIN PRN, Medi charu 25 mcg 4 doses, Branch Starting Sun10/28/19 at 1017, Until Discontinu ed, Routine, Pain (scale 4-6), PACU ondansetron 2020-0 Yes 4mg 4 mg, Slow Univers (ZOFRAN 10-27 IV Push, ity of (PF)) 15:17: PRN, 1 [place] injection 4 40 dose, Medical mg Starting Branch Sun10/28/19 at 1017, Until Discontinu ed, Routine, Nausea and Vomiting (N/V), PACU bupivacaine 2020-0 Yes PRN, Univer s (preserv 10-27 Starting ity of free) 14:58: Sun10/28/19 [place] (SENSORCAIN 00 at 0958, Medi charu E MPF) 0.25 Until Branch % (2.5 Discontinu mg/mL) ed, injection Routine, Intra-op sodium 2020-0 Yes PRN, Univers chloride 10-27 Starting ity of 0.9 % 14:35: Sun10/28/19 [place] irrigation 00 at 0935, Medic al solution Until Branch Discontinu ed, Intra-op lactated 2020-0 2020- No 1000mL at 20 Unive rs ringers IV 7-07 07-07 mL/hr, ity of infusion 13:00: 12:53 1,000 mL, Wei as 1,000 mL 00 :00 IV Medical Infusion, Branch ONCE, 1 dose, 10/28/19 at 0800, Routine, DSU Pre-op methocarbam 2020-0 Yes [id number] 500mg Take 1 Univers ol 500 mg 7-07 tablet by ity o f tablet 00:00: mouth (four) Medical times Branch daily. ketorolac 2020-0 Yes [id number] 10mg Take 1 U nivers 10 mg 7-07 tablet by ity of tablet 00:00: mouth 00 every 6 Medical (six) Branch hours as needed for Pain (scale 4-6) or Pain (scale 7-10). methocarbam 2020-0 Yes [id number] 500mg Take 1 Univers ol 500 mg 7-07 tablet by ity o f tablet 00:00: mouth (four) Medical times Branch daily. ketorolac 2020-0 Yes [id number] 10mg Take 1 U nivers 10 mg 7-07 tablet by ity of tablet 00:00: mouth 00 every 6 Medical (six) Branch hours as needed for Pain (scale 4-6) or Pain (scale 7-10). methocarbam 2020-0 Yes [id number] 500mg Take 1 Univers ol 500 mg 7-07 tablet by ity o f tablet 00:00: mouth (four) Medical times Branch daily. ketorolac 2020-0 Yes [id number] 10mg Take 1 U nivers 10 mg 7-07 tablet by ity of tablet 00:00: mouth [place] 00 every 6 Medical (six) Branch hours as needed for Pain (scale 4-6) or Pain (scale 7-10). methocarbam 2020-0 Yes [id number] 500mg Take 1 Univers ol 500 mg 7-07 tablet by ity o f tablet 00:00: mouth (four) Medical times Branch daily. ketorolac 2020-0 Yes [id number] 10mg Take 1 U nivers 10 mg 7-07 tablet by ity of tablet 00:00: mouth [place] 00 every 6 Medical (six) Branch hours as needed for Pain (scale 4-6) or Pain (scale 7-10). methocarbam 2020-0 Yes [id number] 500mg Take 1 Univers ol 500 mg 7-07 tablet by ity o f tablet 00:00: mouth 4 (four) Medical times Branch daily. ketorolac 2020-0 Yes [id number] 10mg Take 1 U nivers 10 mg 7-07 tablet by ity of tablet 00:00: mouth [place] 00 every 6 Medical (six) Branch hours as needed for Pain (scale 4-6) or Pain (scale 7-10). methocarbam 2020-0 Yes [id number] 500mg Take 1 Univers ol 500 mg 7-07 tablet by ity o f tablet 00:00: mouth (four) Medical times Branch daily. ketorolac 2020-0 Yes [id number] 10mg Take 1 U nivers 10 mg 7-07 tablet by ity of tablet 00:00: mouth [place] 00 every 6 Medical (six) Branch hours as needed for Pain (scale 4-6) or Pain (scale 7-10). methocarbam 2020-0 Yes [id number] 500mg Take 1 Univers ol 500 mg 7-07 tablet by ity o f tablet 00:00: mouth (four) Medical times Branch daily. ketorolac 2020-0 Yes [id number] 10mg Take 1 U nivers 10 mg 7-07 tablet by ity of tablet 00:00: mouth [place] 00 every 6 Medical (six) Branch hours as needed for Pain (scale 4-6) or Pain (scale 7-10). methocarbam 2020-0 Yes [id number] 500mg Take 1 Univers ol 500 mg 7-07 tablet by ity o f tablet 00:00: mouth (four) Medical times Branch daily. ketorolac 2020-0 Yes [id number] 10mg Take 1 U nivers 10 mg 7-07 tablet by ity of tablet 00:00: mouth [place] 00 every 6 Medical (six) Branch hours as needed for Pain (scale 4-6) or Pain (scale 7-10). methocarbam 2020-0 Yes [id number] 500mg Take 1 Univers ol 500 mg 7-07 tablet by ity o f tablet 00:00: mouth (four) Medical times Branch daily. ketorolac 2020-0 Yes [id number] 10mg Take 1 U nivers 10 mg 7-07 tablet by ity of tablet 00:00: mouth [place] 00 every 6 Medical (six) Branch hours as needed for Pain (scale 4-6) or Pain (scale 7-10). HYDROcodone 2019-2019- No 4647 1{tbl} Take 1 U nivers -acetaminop 7-07 07-15 tablet by it y of hen 5-325 00:00: 04:59 mouth [place] mg tablet 00 :00 every 6 Medical (six) Branch hours as needed for Pain (scale 4-6) or Pain (scale 7-10) for up to 7 days. Indication s: acute pain HYDROcodone 2019-2019- No 4647 1{tbl} Take 1 U nivers -acetaminop 7-07 07-15 tablet by it y of hen 5-325 00:00: 04:59 mouth [place] mg tablet 00 :00 every 6 Medical (six) Branch hours as needed for Pain (scale 4-6) or Pain (scale 7-10) for up to 7 days. Indication s: acute pain HYDROcodone 2019-2019- No 4647 1{tbl} Take 1 U nivers -acetaminop 7-07 07-14 tablet by it y of hen 5-325 00:00: 00:00 mouth [place] mg tablet 00 :00 every 6 Medical (six) Branch hours as needed for Pain (scale 4-6) or Pain (scale 7-10) for up to 7 days. Indication s: acute pain HYDROcodone 2019-2019- No 4647 1{tbl} Take 1 U nivers -acetaminop 7-07 07-14 tablet by it y of hen 5-325 00:00: 00:00 mouth [place] mg tablet 00 :00 every 6 Medical (six) Branch hours as needed for Pain (scale 4-6) or Pain (scale 7-10) for up to 7 days. Indication s: acute pain methocarbam 2020-0 2020- No [id number] 500mg Take 1 Univers ol 500 mg 6-25 07-10 tablet by ity of tablet 00:00: 04:59 mouth 4 [place] 00 :00 (four) Medical times Branch daily for 14 days. methocarbam 2020-0 2020- No [id number] 500mg Take 1 Univers ol 500 mg 6-25 07-10 tablet by ity of tablet 00:00: 04:59 mouth 4 [place] 00 :00 (four) Medical times Branch daily for 14 days. methocarbam 2020-0 2020- No [id number] 500mg Take 1 Univers ol 500 mg 6-25 07-10 tablet by ity of tablet 00:00: 04:59 mouth 4 [place] 00 :00 (four) Medical times Branch daily for 14 days. methocarbam 2020-0 2020- No [id number] 500mg Take 1 Univers ol 500 mg 6-25 07-10 tablet by ity of tablet 00:00: 04:59 mouth 4 [place] 00 :00 (four) Medical times Branch daily for 14 days. methocarbam 2020-0 2020- No [id number] 500mg Take 1 Univers ol 500 mg 6-25 07-10 tablet by ity of tablet 00:00: 04:59 mouth 4 [place] 00 :00 (four) Medical times Branch daily for 14 days. methocarbam 2020-0 2020- No [id number] 500mg Take 1 Univers ol 500 mg 6-25 07-10 tablet by ity of tablet 00:00: 04:59 mouth 4 [place] 00 :00 (four) Medical times Branch daily for 14 days. methocarbam 2020-0 2020- No [id number] 500mg Take 1 Univers ol 500 mg 6-25 07-07 tablet by ity of tablet 00:00: 00:00 mouth 4 [place] 00 :00 (four) Medical times Branch daily for 14 days. traMADol 50 2020-0 2020- No [id number] 50mg Take 1 Univers mg tablet 6-25 07-06 tablet by ity of 00:00: 04:59 mouth [place] 00 :00 every 6 Medical (six) Branch hours as needed for Pain (scale 7-10) for up to 10 days. traMADol 50 2020-0 2020- No [id number] 50mg Take 1 Univers mg tablet 6-25 07-06 tablet by ity of 00:00: 04:59 mouth [place] 00 :00 every 6 Medical (six) Branch hours as needed for Pain (scale 7-10) for up to 10 days. traMADol 50 2020-0 2020- No [id number] 50mg Take 1 Univers mg tablet 6-25 07-06 tablet by ity of 00:00: 04:59 mouth [place] 00 :00 every 6 Medical (six) Branch hours as needed for Pain (scale 7-10) for up to 10 days. traMADol 50 2019- No [id number] 50mg Take 1 Univers mg tablet 10-15 tablet by ity of 00:00: 04:59 mouth [place] 00 :00 every 6 Medical (six) Branch hours as needed for Pain (scale 7-10) for up to 10 days. traMADol 50 2019- No [id number] 50mg Take 1 Univers mg tablet 10-15 tablet by ity of 00:00: 04:59 mouth [place] 00 :00 every 6 Medical (six) Branch hours as needed for Pain (scale 7-10) for up to 10 days. No known No [facility] No [facility] No known No Univers medications [facility] No known No Univers medications [facility] Vital Signs Vital Name Observation Time Observation Value Comments Source Body temperature 2019-12-09 13:45:00 35.83 Gaby [facility] Body height 2019-12-09 13:45:00 177.8 cm Universi ty of [facility] Body weight 2019-12-09 13:45:00 119.75 kg Universi ty of [facility] BMI 2019-12-09 13:45:00 37.88 kg/m2 Universi ty of [facility] Body temperature 2019-12-09 13:45:00 35.83 Gaby [facility] Body height 2019-12-09 13:45:00 177.8 cm Universi ty of [facility] Body weight 2019-12-09 13:45:00 119.75 kg Universi ty [facility] BMI 2019-12-09 13:45:00 37.88 kg/m2 Universi ty of [facility] Body temperature 2019-11-10 20:05:00 36.5 Gaby [facility] Body height 2019-11-10 20:05:00 177.8 cm Universi ty of [facility] Body weight 2019-11-10 20:05:00 118.842 kg Universi ty of [facility] BMI 2019-11-10 20:05:00 37.59 kg/m2 Universi ty [facility] Systolic blood 2019-10-28 15:50:00 125 mm[Hg] Univer sity of pressure [facility] Diastolic blood 2019-10-28 15:50:00 87 mm[Hg] Unive rsity of pressure [facility] Heart rate 2019-10-28 15:50:00 60 /min Universi ty of [facility] Respiratory rate 2019-10-28 15:50:00 15 /min Univ ersity of [facility] Oxygen saturation in 2019-10-28 15:50:00 98 /min [facility] Arterial blood by [facility] Pulse oximetry Branch Body temperature 2019-10-28 12:38:00 36.39 Gaby Univ ersity of [facility] Body height 2019-10-28 12:38:00 177.8 cm Universi ty of [facility] Body weight 2019-10-28 12:38:00 117.935 kg Universi ty of [facility] BMI 2019-10-28 12:38:00 37.31 kg/m2 Universi ty of [facility] Body temperature 2019-10-16 19:38:00 36.56 Gaby Univ ersity of [facility] Body height 2019-10-16 19:38:00 177.8 cm Universi ty of [facility] Body weight 2019-10-16 19:38:00 121.836 kg Universi ty of [facility] BMI 2019-10-16 19:38:00 38.54 kg/m2 Universi ty [facility] Systolic blood 2019-10-09 20:12:00 137 mm[Hg] Univer sity of pressure [facility] Diastolic blood 2019-10-09 20:12:00 96 mm[Hg] Unive rsity of pressure [facility] Heart rate 2019-10-09 20:12:00 91 /min Universi ty [facility] Body temperature 2019-10-09 20:12:00 36.56 Gaby Univ ersity of [facility] Body height 2019-10-09 20:12:00 177.8 cm Universi ty [facility] Body weight 2019-10-09 20:12:00 123.514 kg [facility]i ty [facility] BMI 2019-10-09 20:12:00 39.07 kg/m2 [facility]i ty [facility] Procedures Procedure Date / Time Performed Performing Clinician [facility] e ASSIGNMENT OF BENEFITS 2019-10-28 12:08:35 Doctor Unassigned, No University [facility] [place] Name Medical Branch DISCLOSURE AND 2019-10-16 05:01:00 Doctor Unassigned, No [facility] CONSENT, MEDICAL AND Name Medical [facility] SURGICAL PROCEDURES Encounters Start End Encounter Admission Attending Care Care Encounter Source Date/Time Date/Time Type Type Clinicians Facility Department ID 2021-02-18 Outpatient R [facility] [id number] Univers 03:26:02 JAVIER itjason [facility] 2020-03-15 2020-03-15 Outpatient R [facility] [id number] Univers 11:40:00 11:40:00 [id number] ity [facility] 2020-03-15 2020-03-15 Outpatient R MEAGHAN [facility] [id number] Univers 11:40:00 11:40:00 JOSÉ MIGUEL colemanjason [facility] 2020-01-20 2020-01-20 Outpatient R TA [facility] [id number] Univers 08:00:00 08:00:00 JAVIER [id number] ity [facility] 2020-01-20 2020-01-20 Outpatient R TA [facility] [id number] Univers 08:00:00 08:00:00 JAVIER jaredjason [facility] 2019-12-09 2019-12-09 Office Ta [facility] [id number] 08:41:01 08:55:58 Visit Javier SPECIALTY [id number] [facility] [id number] CENTER AT [id number] LEISA Tapia [facility] 2019-12-09 2019-12-09 Office Ta [facility] [id number] Univers 08:41:01 08:55:58 Visit Javier SPECIALTY [id number] [facility] [id number] [facility] CENTER AT [id number] Md dical [address] 2019-12-09 2019-12-09 Outpatient R TA [facility] [id number] Univers 08:40:00 08:40:00 JAVIER [id number] ity [facility] 2019-12-09 2019-12-09 Outpatient Aurelia PAGE [facility] [id number] Univers 08:40:00 08:40:00 JAVIER lopez [facility] 2019-12-08 2019-12-08 Outpatient R TA [facility] [id number] Univers 13:50:00 13:50:00 JAVIER [id number] ity of [facility] 2019-12-08 2019-12-08 Outpatient R TA [facility] [id number] Univers 13:50:00 13:50:00 JAVIER itjason [facility] 2019-11-10 2019-11-10 Office [facility] [id number] Univers 15:00:43 15:57:58 Visit Javier SPECIALTY [id number] ity of [place] [id number] [facility] AT [phone] [address] 2019-11-10 2019-11-10 Outpatient R TA [facility] [id number] Univers 15:20:00 15:20:00 JAVIER ity [facility] 2019-11-10 2019-11-10 Outpatient R [facility] [id number] Univers 15:20:00 15:20:00 JAVIER jessica [facility] 2019-11-07 2019-11-07 Outpatient R TA [facility] [id number] Univers 14:30:00 14:30:00 JAVIER [id number] ity of [facility] 2019-11-07 2019-11-07 Outpatient R [facility] [id number] Univers 14:30:00 14:30:00 JAVIER jessica [facility] 2019-11-04 2019-11-04 Telephone [facility] [id number] Univers 00:00:00 00:00:00 Javier PRIMARY [id number] it y of [place] [id number] [facility] [place] [phone] Md dicjn [address] [place] [address] 2019-10-28 2019-10-28 [facility] [id number] Univers 07:08:00 11:14:00 Encounter [facility] [id number] ity of Harjinder Huynh [id number] [facility] [id number] [address] ([facility]) 2019-10-28 2019-10-28 Orders Doctor FORD [id number] Univers 00:00:00 00:00:00 Only Unassigned, PRICILA [id number] ity of [place] [facility] [id number] Wei as [id number] [address] 2019-10-27 2019-10-27 Laboratory Only, Clc Bls Test [facility] [id number] Univers 13:26:06 13:41:06 Only Javier Page [facility] 350.1 .[id number] ity [id number] [place] [id number] [address] Office Building 2019-10-27 2019-10-27 Outpatient [facility] [id number] Univers 13:15:00 13:15:00 [id number] itjason [facility] 2019-10-27 2019-10-27 [facility] [id number] Univers 13:15:00 13:15:00 JAVIER lopez [facility] 2019-10-16 2019-10-17 [facility] [id number] Univers 14:29:41 13:07:31 Visit Javier PURVIS [id number] ity of [facility] [id number] [place] [id number] [address] 2019-10-16 2019-10-16 [facility] [id number] Univers 14:30:00 14:30:00 JAVIER [id number] ity [facility] 2019-10-16 2019-10-16 Outpatient Aurelia PAGE [facility] [id number] Univers 14:30:00 14:30:00 JAVIER lopez [facility] 2019-10-16 2019-10-16 Orders Doctor FORD [id number] Univers 00:00:00 00:00:00 Only Unassigned, PRICILA [id number] ity of [place] [facility] [id number] [place] as [id number] [address] 2019-10-09 2019-10-10 [facility] [id number] Univers 15:09:08 09:42:25 Visit Javier SPECIALTY [id number] jason [facility] [id number] [facility] AT [id number] Md trinity [place] [address] [facility] 2019-10-09 2019-10-09 Outpatient R [facility] [id number] Univers 15:18:04 23:59:00 JAVIER lopez [facility] 2019-10-09 2019-10-09 [facility] [id number] Univers 15:18:00 23:59:00 Encounter Javier SPECIALTY [id number] jessica [facility] [id number] [facility] AT [id number] Md trinity [place] [address] [facility] 2019-10-08 2019-10-08 Outpatient [facility] [id number] Univers 20:25:00 20:25:00 JAVIER [id number] jason [facility] Results This patient has no known results.
[2021-08-14] MEDS ORDERED: ONDANSETRON 4 MG/2 ML VIAL ONE (07:24)
[2021-08-14] MEDS ORDERED: NA CHLORIDE 0.9% 1,000 ML ONE (07:24)
[2021-08-14] MEDS ORDERED: MORPHINE 4 MG/ML SYR ONE (07:24)
[2021-08-14 07:34] LABS: Absolute Lymphocytes (CBC) 1.6 K/uL (0.7-4.9); Hematocrit 43.8 % (39.6-49.0); MPV 8.1 fL (7.6-11.3)
[2021-08-14 07:47] LABS: Albumin 3.5 g/dL (3.4-5.0); Bilirubin Total 2.5 mg/dL (0.2-1.0); Potassium 3.7 mmol/L (3.5-5.1); Protein, Total 7.5 g/dL (6.4-8.2)
--- NOTE | 2021-08-14 08:25 | RAD REPORT ---
EXAM DESCRIPTION: CT - Abdomen Pelvis W Contrast - 08/14/2021 7:58 am CLINICAL HISTORY: Abdominal pain, acute, nonlocalized, history of diverticulitis COMPARISON: CT study 12/19/2019 TECHNIQUE: Biphasic, helical CT imaging of the abdomen and pelvis was performed following 100 ml non -ionic IV contrast. No oral contrast administered. All CT scans are performed using dose optimization technique as appropriate and may include automated exposure control or mA/KV adjustment according to patient size. FINDINGS: No suspicious findings in the lung bases. The liver, spleen, and pancreas show no new or suspicious findings. Lateral right lobe liver lobe 3.3 centimeter mass shows hemangioma characteristics stable since 2019. Gallbladder and biliary tree are also without suspicious finding. Symmetric renal function is seen with no hydronephrosis or suspicious renal mass. No pyelonephritis o r acute parenchymal process. No bladder abnormalities. No adrenal abnormalities. No stomach or small bowel abnormality. Appendix is normal. From cecum through descending colon there are no acute findings. Patient has left-sided diverticulosis. Midportion of the sigmoid colon shows p rominent circumferential wall thickening and edema. Stranding is seen in the adjacent fat. There is d iverticulosis in this portion of the colon. Rectum and distal sigmoid colon show no acute component. There is no abscess or extraluminal free air. No hernia, mass or bulky lymphadenopathy. No suspicious bony findings. IMPRESSION: Sigmoid colon mild to moderate acute diverticulitis with no abscess, free air or surgica lly emergent component.
[2021-08-14 08:32] LABS: Urine Blood 2+ (Negative); Urine Glucose Negative (Negative); Urine Protein 1+ (Negative); Urine pH 6.5 (5.0-7.0)
[2021-08-14] MEDS ORDERED: CEFTRIAXONE 1000 MG/VIAL ONE (08:39)
[2021-08-14] MEDS ORDERED: METRONIDAZOLE 500mg IVPB 500 MG/100 ML BAG IV ONE (08:39)
[2021-08-14] MEDS ORDERED: NA CHLORIDE 0.9% 100 ML IV ONE (08:39)
[2021-08-14] MEDS ORDERED: HYDROMORPHONE HCL 1 MG/ML INJ ONE (09:01)
--- NOTE | 2021-08-14 09:39 | ER ---
Nurse's Notes [facility] Name: Davonte Boucher Age: 50 yrs Sex: Male : 1970 Arrival Date: 08/14/2021 Time: 07:02 Bed 6 Private MD: Diagnosis: Diverticulitis of large intestine without perforation or abscess without bleeding Presentation: 08/14 07:08 Chief complaint: Patient states: Left lower abdominal pain that started 3 days ago with sm5 constipation. Patient states this feels like his diverticulitis is flaring up. Coronavirus screen: Vaccine status: Client denies travel out of the [place] in the last 14 days. Ebola Screen: Patient denies travel to an Ebola-affected area in the 21 days before illness onset. Initial Sepsis Screen: Does the patient meet any 2 criteria? No. Patient's initial sepsis screen is negative. Does the patient have a suspected source of infection? No. Patient's initial sepsis screen is negative. Risk Assessment: Do you want to hurt yourself or someone else? Patient reports no desire to harm self or others. Onset of symptoms was August 11, 2021. 07:08 Method Of Arrival: Ambulatory [facility] 07:08 Acuity: PADMINI 3 5 Triage Assessment: 07:09 General: Appears uncomfortable, Behavior is cooperative. Pain: Complains of pain in sm5 left lower quadrant. Neuro: Level of Consciousness is awake, alert, obeys commands, Oriented to person, place, time, situation, Moves all extremities. Gait is steady, Speech is normal. Cardiovascular: Patient's skin is warm and dry. Respiratory: Airway is patent Respiratory effort is even, unlabored, Respiratory pattern is regular, symmetrical. GI: Reports lower abdominal pain, constipation, cramping, nausea. Musculoskeletal: No signs and/or symptoms reported regarding the musculoskeletal system. Historical: - Allergies: 07:09 NKA; sm5 - PMHx: 07:09 Diverticulitis; Hypertension; sm5 - PSHx: 07:09 knee; sm5 - Immunization history:: Adult Immunizations up to date. - Social history:: Smoking status: Patient reports the use of cigarette tobacco products, smokes .3 packs per day, Patient/guardian denies using alcohol, street drugs, The patient lives with family. - Family history:: not pertinent. Screenin:11 Abuse screen: Denies threats or abuse. Denies injuries from another. Nutritional sm5 screening: No deficits noted. Tuberculosis screening: No symptoms or risk factors identified. Fall Risk None identified. Assessment: 07:15 General: Appears uncomfortable, Behavior is calm, cooperative. Pain: Complains of pain vg1 in left lower quadrant Pain currently is 10 out of 10 on a pain scale. Pain began 2-3 days ago. Noted to be guarding. Neuro: Level of Consciousness is awake, alert, obeys commands, Oriented to person, place, time, situation. Cardiovascular: Patient's skin is warm and dry. Respiratory: Airway is patent Respiratory effort is even, unlabored. GI: Abdomen is round non-distended, Bowel sounds present X 4 quads. Abdomen is tender to palpation in right lower quadrant and left lower quadrant Reports bloating, constipation. : No signs and/or symptoms were reported regarding the genitourinary system. EENT: No signs and/or symptoms were reported regarding the EENT system. Derm: Skin is intact, is healthy with good turgor. Musculoskeletal: Circulation, motion, and sensation intact. 08:26 Reassessment: Patient appears in no apparent distress at this time. Patient and/or vg1 family updated on plan of care and expected duration. Pain level reassessed. Patient is alert, oriented x 3, equal unlabored respirations, skin warm/dry/pink. Stated ABD pain 'is still up there, the pain med i was given didn't really work'. Provider notified. 09:26 Reassessment: Patient appears in no apparent distress at this time. Patient and/or vg1 family updated on plan of care and expected duration. Pain level reassessed. Patient is alert, oriented x 3, equal unlabored respirations, skin warm/dry/pink. Rated ABD pain 7/10. 09:53 Reassessment: Pt and spouse upset because they were prescribed different pain ss medication upon discharge than they are "usually" given. Spouse requesting, Tylenol #3 for pain as "Dr. Fontenot always does." Pt and family verbalize understanding the need to follow up with PCP, but states they do not have the funds at this time to do so. Attempted to educate patient and family member about free or income based clinics in the area, but did not seem interested and states, "we will just end up right back here." Dr. Mann notified and have spoke with the patient and family member, but they still appear upset, despite efforts. Vital Signs: 07:08 BP 134 / 81; Pulse 81; Resp 16; Temp 97.9; Pulse Ox 99% on R/A; Weight 113.4 kg; Height 5 5 ft. 9 in. (175.26 cm); Pain 10/10; 07:27 BP 131 / 63; Pulse 76; Resp 16; Pulse Ox 100% on R/A; vg1 08:30 BP 120 / 66; Pulse 80; Resp 16; Pulse Ox 99% on R/A; vg1 09:27 BP 138 / 84; Pulse 65; Resp 16; Pulse Ox 100% ; vg1 07:08 Body Mass Index 36.92 (113.40 kg, 175.26 cm) 5 ED Course: 07:02 Patient arrived in ED. kz 07:09 Radha Mann MD is Attending Physician. [facility] 07:09 Triage completed. [facility] 07:09 Arm band placed on right wrist. 5 07:13 Rochelle Parrish, RN is Primary Nurse. vg1 07:18 Initial lab(s) drawn, by me, sent to lab. Inserted saline lock: 20 gauge in right vg1 antecubital area, using aseptic technique. Blood collected. 07:27 Patient has correct armband on for positive identification. Bed in low position. Call 1 light in reach. Side rails up X 1. 10:10 No provider procedures requiring assistance completed. IV discontinued, intact, ap3 bleeding controlled, No redness/swelling at site. Pressure dressing applied. Administered Medications: 07:28 Drug: morphine 4 mg Route: IVP; Site: right antecubital; ap3 08:22 Follow up: Response: No adverse reaction; No change in condition vg1 07:28 Drug: Zofran (Ondansetron) 4 mg Route: IVP; Site: right antecubital; ap3 08:22 Follow up: Response: No adverse reaction; Marked relief of symptoms vg1 07:29 Drug: NS 0.9% 1000 ml Route: IV; Rate: 1 bolus; Site: right antecubital; ap3 10:11 Follow up: IV Status: Completed infusion ap3 08:40 Drug: Rocephin (cefTRIAXone) 1 grams Route: IV; Rate: calculated rate; Site: right vg1 antecubital; 08:55 Follow up: IV Status: Completed infusion; IV Intake: 100ml vg1 08:55 Drug: Flagyl (metroNIDAZOLE) 500 mg Volume: 100 ml; Route: IVPB; Rate: 200 ml/hr; vg1 Infused Over: 30 mins; Site: right antecubital; 09:27 Follow up: IV Status: Completed infusion; IV Intake: 100ml vg1 08:58 Drug: Dilaudid (HYDROmorphone) 1 mg Route: IVP; Site: right antecubital; vg1 09:27 Follow up: Response: No adverse reaction; Pain is decreased vg1 Intake: 08:55 IV: 100ml; Total: 100ml. vg1 09:27 IV: 100ml; Total: 200ml. vg1 Outcome: 09:39 Discharge ordered by . ma2 10:10 Discharged to home ambulatory. ap3 10:10 Condition: good 10:10 Discharge instructions given to patient. 10:11 Patient left the ED. ap3 Signatures: Germaine Bowman, RN MARTY Radha Mann MD MD ma2 Prokisch, Amanda, RN RN ap3 Rochelle Parrish RN RN 1 Minnie Vidal RN RN sm5 Zapata, Kelly kz
--- NOTE | 2021-08-14 09:39 | EDPHYS ---
Physician Documentation [facility] Name: Davonte Boucher Age: 50 yrs Sex: Male : 1970 Arrival Date: 08/14/2021 Time: 07:02 Bed 6 Private MD: ED Physician Radha Mann HPI: 08/14 08:59 This 50 yrs old Black Male presents to ER via Ambulatory with complaints of Abdominal ma2 Pain. 08:59 Healthy 15-year-old male, with left lower quadrant abdominal pain for 1 day mild, no ma2 vomiting diarrhea no fever no blood per rectum or bloody stool, patient said he had diverticulitis in the past, he also had bleeding with a stool in the past but not recently, patient denies trauma. Historical: - Allergies: 07:09 NKA; sm5 - PMHx: 07:09 Diverticulitis; Hypertension; sm5 - PSHx: 07:09 knee; sm5 - Immunization history:: Adult Immunizations up to date. - Social history:: Smoking status: Patient reports the use of cigarette tobacco products, smokes .3 packs per day, Patient/guardian denies using alcohol, street drugs, The patient lives with family. - Family history:: not pertinent. ROS: 08:59 Constitutional: Negative for fever, chills, and weight loss. ma2 08:59 All other systems are negative. Exam: 08:59 Constitutional: This is a well developed, well nourished patient who is awake, alert, ma2 and in no acute distress. Head/Face: Normocephalic, atraumatic. Eyes: Pupils equal round and reactive to light, extra-ocular motions intact. Lids and lashes normal. Conjunctiva and sclera are non-icteric and not injected. Cornea within normal limits. Periorbital areas with no swelling, redness, or edema. ENT: Nares patent. No nasal discharge, no septal abnormalities noted. Tympanic membranes are normal and external auditory canals are clear. Oropharynx with no redness, swelling, or masses, exudates, or evidence of obstruction, uvula midline. Mucous membranes moist. Neck: Trachea midline, no thyromegaly or masses palpated, and no cervical lymphadenopathy. Supple, full range of motion without nuchal rigidity, or vertebral point tenderness. No Meningismus. Chest/axilla: Normal chest wall appearance and motion. Nontender with no deformity. No lesions are appreciated. Cardiovascular: Regular rate and rhythm with a normal S1 and S2. No gallops, murmurs, or rubs. Normal PMI, no JVD. No pulse deficits. Respiratory: Lungs have equal breath sounds bilaterally, clear to auscultation and percussion. No rales, rhonchi or wheezes noted. No increased work of breathing, no retractions or nasal flaring. Abdomen/GI: Soft, non-tender, with normal bowel sounds. No distension or tympany. No guarding or rebound. No evidence of tenderness throughout. MS/ Extremity: Pulses equal, no cyanosis. Neurovascular intact. Full, normal range of motion. Neuro: Awake and alert, GCS 15, oriented to person, place, time, and situation. Cranial nerves II-XII grossly intact. Motor strength 5/5 in all extremities. Sensory grossly intact. Cerebellar exam normal. Normal gait. Vital Signs: 07:08 BP 134 / 81; Pulse 81; Resp 16; Temp 97.9; Pulse Ox 99% on R/A; Weight 113.4 kg; Height sm5 5 ft. 9 in. (175.26 cm); Pain 10/10; 07:27 BP 131 / 63; Pulse 76; Resp 16; Pulse Ox 100% on R/A; vg1 08:30 BP 120 / 66; Pulse 80; Resp 16; Pulse Ox 99% on R/A; vg1 09:27 BP 138 / 84; Pulse 65; Resp 16; Pulse Ox 100% ; vg1 07:08 Body Mass Index 36.92 (113.40 kg, 175.26 cm) [facility] MDM: 08:59 Differential diagnosis: appendicitis, Hepatitis, Irritable bowel syndrome, ma2 pancreatitis, urinary tract infection. Data reviewed: vital signs, nurses notes. Counseling: I had a detailed discussion with the patient and/or guardian regarding: the historical points, exam findings, and any diagnostic results supporting the discharge/admit diagnosis, the presence of at least one elevated blood pressure reading (>120/80) during this emergency department visit, the need for outpatient follow up. Response to treatment: the patient's symptoms have markedly improved after treatment. 09:39 Patient medically screened. ma2 10:44 ED course: I am concerned about risk for drug-seeking behavior, clinically patient is colleen not in severe pain, is walking with no distress, CT shows mild to moderate diverticulitis of note patient requested opiate in the ER he was given morphine, and then 10 minutes later he asked for Dilaudid. Received morphine 4 mg IV, then Dilaudid 1 mg IV both within less than 30 minutes. And then 15 minutes later, patient significant other kept coming to ER insisting on discharge. Patient and the other significant other insisted on opiate prescription. Upon checking [facility] aware, it seems that patient has received opiate almost every month over the last 12-month, received total of 26 prescription of opiate and benzodiazepine over the last 24 months, all prescription was filled by ER providers at this facility and at [facility] emergency room, which is [facility] minutes away from this ER where I also practice emergency medicine. 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 I offered to prescribe strong nonsteroidal anti-inflammatory medication at this time. I advised patient to talk to their primary care doctor, to assess for need for opiate prescription, and/or referral to a pain management. At this time patient and his significant other became belligerent and threatening to report complaints.. 08/14 07:10 Order name: CBC with Diff [facility] 08/14 07:10 Order name: CMP [facility] 08/14 07:10 Order name: Lipase [facility] 08/14 07:39 Order name: CBC with Automated Diff; Complete Time: 08:32 [facility] 08/14 07:48 Order name: Comprehensive Metabolic Panel; Complete Time: 08:32 [facility] 08/14 07:48 Order name: Lipase; Complete Time: 08:32 [facility] 08/14 07:10 Order name: CT Abd/Pelvis - IV Contrast Only or08/14 08:26 Order name: CT; Complete Time: 08:32 [facility] 08/14 08:33 Order name: Urine Dipstick-Ancillary [facility] 08/14 07:10 Order name: IV Saline Lock; Complete Time: 07:24 [facility] 08/14 07:10 Order name: Labs collected and sent; Complete Time: 07:24 [facility] 08/14 07:10 Order name: Urine Dipstick-Ancillary (obtain specimen); Complete Time: 08:34 [facility] Administered Medications: 07:28 Drug: morphine 4 mg Route: IVP; Site: right antecubital; ap3 08:22 Follow up: Response: No adverse reaction; No change in condition vg1 07:28 Drug: Zofran (Ondansetron) 4 mg Route: IVP; Site: right antecubital; ap3 08:22 Follow up: Response: No adverse reaction; Marked relief of symptoms vg1 07:29 Drug: NS 0.9% 1000 ml Route: IV; Rate: 1 bolus; Site: right antecubital; ap3 10:11 Follow up: IV Status: Completed infusion ap3 08:40 Drug: Rocephin (cefTRIAXone) 1 grams Route: IV; Rate: calculated rate; Site: right vg1 antecubital; 08:55 Follow up: IV Status: Completed infusion; IV Intake: 100ml vg1 08:55 Drug: Flagyl (metroNIDAZOLE) 500 mg Volume: 100 ml; Route: IVPB; Rate: 200 ml/hr; vg1 Infused Over: 30 mins; Site: right antecubital; 09:27 Follow up: IV Status: Completed infusion; IV Intake: 100ml vg1 08:58 Drug: Dilaudid (HYDROmorphone) 1 mg Route: IVP; Site: right antecubital; vg1 09:27 Follow up: Response: No adverse reaction; Pain is decreased vg1 Disposition Summary: 08/14/21 09:39 Discharge Ordered Location: Home ma2 Condition: Stable ma2 Diagnosis - Diverticulitis of large intestine without perforation or abscess without bleeding ma2 Followup: ma2 - With: Private Physician - When: Tomorrow - Reason: If symptoms return, Continuance of care Discharge Instructions: - Discharge Summary Sheet ma2 - High-Fiber Diet ma2 - Diverticulitis, [id number] ma2 - Diverticulitis ma2 Forms: - Medication Reconciliation Form ma2 - Thank You Letter ma2 - Antibiotic Education ma2 - Prescription Opioid Use ma2 - Work release form ss Prescriptions: - Flagyl 500 mg Oral Tablet - take 1 tablet by ORAL route every 12 hours for 7 days; 14 tablet; Refills: 0, ma2 Product Selection Permitted - Zofran 4 mg Oral Tablet - take 1 tablet by ORAL route every 12 hours As needed; 20 tablet; Refills: 0, ma2 Product Selection Permitted - Cipro 500 mg Oral Tablet - take 1 tablet by ORAL route every 12 hours for 7 days; 14 tablet; Refills: 0, ma2 Product Selection Permitted - Diclofenac Sodium 75 mg Oral Tablet Sustained Release - take 1 tablet by ORAL route 2 times per day; 30 tablet; Refills: 0, Product ma2 Selection Permitted Signatures: Dispatcher [employer] EDMS Germaine Bowman, RN RN ss Radha Mann MD MD ma2 Rosemarie Epstein RN RN ap3 Rochelle Parrish RN RN vg1 Minnie Vidal RN RN sm5 Corrections: (The following items were deleted from the chart) 10:57 10:44 ED course: I am concerned about risk for drug-seeking behavior, clinically ma2 patient is not in severe pain, is walking with no distress, CT shows mild to moderate diverticulitis of note patient requested opiate in the ER he was given morphine, and then 10 minutes later he asked for Dilaudid. Received morphine 4 mg IV, then Dilaudid 1 mg IV both within less than 30 minutes. And then 15 minutes later, patient significant other kept coming to ER insisting on discharge. Patient and the other significant other insisted on opiate prescription. Upon checking [facility] aware, it seems that patient has received opiate almost every month over the last 12-month, all prescription was filled by ER providers at this facility and at [facility] emergency room, which is [facility] 20 minutes away from this ER. I offered to prescribe strong nonsteroidal anti-inflammatory medication at this time. I advised patient to talk to their primary care doctor, to assess for need for opiate prescription, and/or referral to a pain management. At this time patient and his significant other became belligerent and threatening to report complaints.. ma2
[2021-08-14 10:16] VITALS: TEMP 97.9
[2021-08-14 10:19] VITALS: BP 138/84; O2SAT 100
== END 2021-08-14 10:11 | disposition home or self-care (01) ==
LOC: ER 06:58
DX: K57.32 Diverticulitis of large intestine without perforation or abscess without bleeding (principal); I10 Essential (primary) hypertension; F17.210 Nicotine dependence, cigarettes, uncomplicated
CPT/HCPCS: 36415; 74177; 80053; 81003; 83690; 85025; 96361; 96365; 96375; 99284; J1170; J2405; J7030; Q9967

== ENCOUNTER 2024-07-26 15:28 | Emergency (ER) | payer OTHER ==
--- OUTSIDE RECORDS SUMMARY | 2024-07-26 15:34 | XMS REPORT | Continuity of Care Document ---
Author Name Unknown Address [address] [facility] [address]. [address] [place] [address] Organization [facility] Address [address] [facility] [place] [address] Care Team Providers Care Patternmaker Plaster Name Role Phone PCP, PATIENT DOES NOT HAVE A Primary Care Physic ene Unavailable JAVIER PAGE Attending Clinician Jessika vailable Deon Frank Attending Clinician UnavailJOSÉ MIGUEL Triplett Attending Clinician Unavailable Javier Page MD Attending Clinician Doctor Unassigned, [place] Attending Clinician U navailable Only, Clc Bls Test Attending Clinician UnavailJAVIER Glaser Admitting Clinician Jessika vailable Physician, No Primary or Family Admitting Clinic ene Unavailable Javier Page MD Admitting Clinician Payers Payer Name Policy Type Policy Number Effective Date Expirati on Date Source [facility] [id number] 2019 00:00:00 Problems Condition Name Condition Details Condition Category Status Onset Date Resolution Date Last Treatment Date Treating Clinician Comments Source No known active problems No known active problems Disease [facility] Allergies, Adverse Reactions, Alerts Allergy Name Allergy Type Status Severity Reaction(s) Onset Date Inactive Date Treating Clinician Comments Source No Known Allergie s DA Active U 2023-04 00:00: 00 [facility] NO KNOWN ALLERGIE S Drug Class Active [facility] Social History Social Habit Start Date Stop Date Quantity Comments Source Sex Assigned At [facility] Exposure to SARS-CoV-2 (event) Not sure [facility] Tobacco use and exposure 2019-11-10 00:00:00 2019-11-10 00:00:00 Never used [facility] Smoking Status Start Date Stop Date Source Current every day smoker 2019-11-10 00:00:00 [facility] Unknown if ever smoked [facility] Medications Ordered Medication Name Filled Medication Name Start Date Stop Date Current Medication? Ordering Clinician Indication Dosage Frequency Signature (SIG) Comments Components Source traMADoL 50 mg tablet 12-08 00:00: 00 12-16 04:59 :00 No [id number] 50mg Take 1 tablet by mouth every 6 (six) hours as needed for Pain (scale 7-10) for up to 7 days. Indication s: acute pain [facility] HYDROcodone -acetaminop hen (NORCO) 5-325 mg tablet 11-09 00:00: 00 11-17 04:59 :00 No 2745 1{tbl} Take 1 tablet by mouth every 6 (six) hours as needed for Pain (scale 7-10) for up to 7 days. Indication s: chronic pain [facility] HYDROcodone -acetaminop hen 5-325 mg tablet 11-03 00:00: 00 Yes 4647 1{tbl} Take 1 tablet by mouth every 6 (six) hours as needed for Pain (scale 4-6) or Pain (scale 7-10). Indication s: acute pain [facility] lactated ringers IV infusion 1,000 mL 10-27 15:30: 00 Yes 1000mL at 100 mL/hr, 1,000 mL, IV Infusion, CONTINUOUS , Starting Sun10/28/19 at 1030, Until Discontinu ed, Routine, PACU [facility] HYDROcodone -acetaminop hen (NORCO 5) 5-325 mg tablet 1 tablet 10-27 15:30: 10-27 15:50 :00 No 1{tbl} 1 tablet, Oral, ONCE, 1 dose, Sun10/28/19 at 1030, Routine, PACU [facility] HYDROmorpho ne (DILAUDID) injection 0.2 mg 10-27 15:17: 40 Yes .2mg 0.2 mg, Slow IV Push, Q5MIN PRN, 10 doses, Starting 10/28/19 at 1017, Until Discontinu ed, Routine, Pain (scale 7-10), PACU
Us e approved by (Faculty): PACU USE -ANESTHESI A SERVICE-HY DROMORPHON E INJECTIONS [facility] FENTanyl PF (SUBLIMAZE (PF)) injection 25 mcg 10-27 15:17: 40 Yes 25ug 25 mcg, Slow IV Push, Q5MIN PRN, 4 doses, Starting 10/28/19 at 1017, Until Discontinu ed, Routine, Pain (scale 4-6), PACU [facility] ondansetron (ZOFRAN (PF)) injection 4 mg 10-27 15:17: 40 Yes 4mg 4 mg, Slow IV Push, PRN, 1 dose, Starting 10/28/19 at 1017, Until Discontinu ed, Routine, Nausea and Vomiting (N/V), PACU [facility] bupivacaine (preserv free) (SENSORCAIN E MPF) 0.25 % (2.5 mg/mL) injection 10-27 14:58: 00 Yes PRN, Starting Sun10/28/19 at 0958, Until Discontinu ed, Routine, Intra-op [facility] sodium chloride 0.9 % irrigation solution 10-27 14:35: 00 Yes PRN, Starting Sun10/28/19 at 0935, Until Discontinu ed, Intra-op [facility] lactated ringers IV infusion 1,000 mL 10-27 13:00: 00 10-27 12:53 :00 No 1000mL at 20 mL/hr, 1,000 mL, IV Infusion, ONCE, 1 dose, Sun10/28/19 at 0800, Routine, DSU Pre-op [facility] methocarbam ol 500 mg tablet 10-27 00:00: 00 Yes [id number] 500mg Take 1 tablet by mouth 4 (four) times daily. [facility] ketorolac 10 mg tablet 10-27 00:00: 00 Yes [id number] 10mg Take 1 tablet by mouth every 6 (six) hours as needed for Pain (scale 4-6) or Pain (scale 7-10). [facility] HYDROcodone -acetaminop hen 5-325 mg tablet 10-27 00:00: 11-03 00:00 :00 No [id number] 1{tbl} Take 1 tablet by mouth every 6 (six) hours as needed for Pain (scale 4-6) or Pain (scale 7-10) for up to 7 days. Indication s: acute pain [facility] methocarbam ol 500 mg tablet 10-15 00:00: 00 10-27 00:00 :00 No [id number] 500mg Take 1 tablet by mouth 4 (four) times daily for 14 days. [facility] traMADol 50 mg tablet 10-15 00:00: 10-26 04:59 :00 No [id number] 50mg Take 1 tablet by mouth every 6 (six) hours as needed for Pain (scale 7-10) for up to 10 days. [facility] No known medications No Un cat [facility] No known medications No Un cat [facility] No known medications No Un cat [facility] No known medications No Un cat [facility] Vital Signs Vital Name Observation Time Observation Value Comments S ource Body temperature 2019-12-09 13:45:00 35.83 [facility] Body height 2019-12-09 13:45:00 177.8 cm [facility] Body weight 2019-12-09 13:45:00 119.75 kg [facility] BMI 2019-12-09 13:45:00 37.88 kg/m2 [facility] Body temperature 2019-12-09 13:45:00 35.83 [facility] Body height 2019-12-09 13:45:00 177.8 cm [facility] Body weight 2019-12-09 13:45:00 119.75 kg [facility] BMI 2019-12-09 13:45:00 37.88 kg/m2 [facility] Body temperature 2019-11-10 20:05:00 36.5 [facility] Body height 2019-11-10 20:05:00 177.8 cm [facility] weight 2019-11-10 20:05:00 118.842 [facility] BMI 2019-11-10 20:05:00 37.59 kg/m2 [facility] Systolic blood pressure 2019-10-28 15:50:00 125 mm[Hg] [facility] Diastolic blood pressure 2019-10-28 15:50:00 87 mm[Hg] [facility] Heart rate 2019-10-28 15:50:00 60 /min [facility] Respiratory rate 2019-10-28 15:50:00 15 /min [facility] Oxygen saturation in Arterial blood by Pulse oximetry 2019-10-28 15:50:00 98 /min [facility] Body temperature 2019-10-28 12:38:00 36.39 [facility] Body height 2019-10-28 12:38:00 177.8 cm [facility] Body weight 2019-10-28 12:38:00 117.935 kg [facility] BMI 2019-10-28 12:38:00 37.31 kg/m2 [facility] Body temperature 2019-10-16 19:38:00 36.56 [facility] Body height 2019-10-16 19:38:00 177.8 cm [facility] Body weight 2019-10-16 19:38:00 121.836 kg [facility] BMI 2019-10-16 19:38:00 38.54 kg/m2 [facility] Systolic blood pressure 2019-10-09 20:12:00 137 mm[Hg] [facility] Diastolic blood pressure 2019-10-09 20:12:00 96 mm[Hg] [facility] Heart rate 2019-10-09 20:12:00 91 /min [facility] Body temperature 2019-10-09 20:12:00 36.56 [facility] Body height 2019-10-09 20:12:00 177.8 cm [facility] Body weight 2019-10-09 20:12:00 123.514 kg [facility] BMI 2019-10-09 20:12:00 39.07 kg/m2 [facility] Procedures Procedure Date / Time Performed Performing Clinicia n Source ASSIGNMENT OF BENEFITS 2019-10-28 12:08:35 Docto r Unassigned, [place] [facility] DISCLOSURE AND CONSENT, MEDICAL AND SURGICAL PROCEDURES 2019-10-16 05:01:00 Doctor Unassigned, [place] [facility] Encounters Start Date/Time End Date/Time Encounter Type Admission Type Attending [facility] Care Facility Care Department Encounter ID Source 2021-02-18 03:26:02 Outpatient JAVIER GALLEGO [facility] [id number] [facility] 2024-04-21 06:23:00 2024-04-21 07:07:00 Emergency EM Deon Frank [facility] [id number] [facility] 2020-03-15 11:40:00 2020-03-15 11:40:00 Outpatient JOSÉ MIGUEL HANSEN [facility] [id number] [facility] 2020-01-20 08:00:00 2020-01-20 08:00:00 Outpatient JAVIER GALLEGO [facility] [id number] [facility] 2019-12-09 08:41:01 2019-12-09 08:55:58 Office Visit Javier Page [facility] ..[id number] [id number] 2019-12-09 08:41:01 2019-12-09 08:55:58 Office Visit Javier Page [facility] ..[id number] [id number] [id number] [facility] 2019-12-09 08:40:00 2019-12-09 08:40:00 Outpatient R JAVIER PAGE [facility] [id number] [facility] 2019-12-08 13:50:00 2019-12-08 13:50:00 Outpatient R JAVIER PAGE [facility] [id number] [facility] 2019-11-10 15:00:43 2019-11-10 15:57:58 Office Visit Javier Page [facility] [id number] [id number] [id number] [id number] [facility] 2019-11-10 15:20:00 2019-11-10 15:20:00 Outpatient JAVIER GALLEGO [facility] [id number] [facility] 2019-11-07 14:30:00 2019-11-07 14:30:00 Outpatient JAVIER GALLEGO [facility] [id number] [facility] 2019-11-04 00:00:00 2019-11-04 00:00:00 Telephone Javier Page [facility] [id number] [id number] [id number] [id number] [facility] 2019-10-28 07:08:00 2019-10-28 11:14:00 Hospital Encounter Javier Page [facility] ([facility] [id number] [id number] [id number] [id number] [facility] 2019-10-28 00:00:00 2019-10-28 00:00:00 Orders Only Doctor Unassigned, [place] [facility] [id number] [id number] [id number] [id number] [facility] 2019-10-27 13:26:06 2019-10-27 13:41:06 Laboratory Only Only, Clc Bls Test Javier Page [facility] Office Building [id number] [id number] [id number] [id number] [facility] 2019-10-27 13:15:00 2019-10-27 13:15:00 Outpatient JAVIER GALLEGO [facility] [id number] [facility] 2019-10-16 14:29:41 2019-10-17 13:07:31 Office Visit Javier Page [facility] [id number] [id number] [id number] [id number] [facility] 2019-10-16 14:30:00 2019-10-16 14:30:00 Outpatient JAVIER GALLEGO [facility] [id number] [facility] 2019-10-16 00:00:00 2019-10-16 00:00:00 Orders Only Doctor Unassigned, [place] [facility] [id number] [id number] [id number] [id number] [facility] 2019-10-09 15:09:08 2019-10-10 09:42:25 Office Visit Javier Page [facility] [id number] [id number] [id number] [id number] [facility] 2019-10-09 15:18:04 2019-10-09 23:59:00 Outpatient JAVIER GALLEGO [facility] [id number] [facility] 2019-10-09 15:18:00 2019-10-09 23:59:00 Hospital Encounter Javier Page [facility] [id number] [id number] [id number] [id number] [facility] Notes Date/Time Note Provider Source 2024-04-21 06:37:00 [facility] ([facility]) EMERGENCY PROVIDER REPORT REPORT#:[id number] REPORT STATUS: Signed DATE:04/21/24 TIME: 06 PATIENT: MAEGAN SAUL UNIT #: [id number] ROOM/BED: : 71 AGE: 53 SEX: M PCP PHYS: No Primary or Family Physician SERVICE AUTHOR: Kristofer Pierce PAINTER ASSISTANT REP SRV REP SRV TM: 0637 * ALL edits or amendments must be made on the electronic/computer document * Kristofer Pierce 04/21/24636: HPI-Eye Problem General Initial Greet Date/Time 04/21/24 06 Presentation Chief Complaint Eye L affected Hx Obtained From Patient Context Immunization Status Up to Date Tetanus within 5-10 years Free Text HPI Notes Free Text HPI Notes 53-year-old male presents to the ED with a complaint of left eye irritation for the past week. Patient has edema to his upper and lower eyelid from repetitive rubbing. Denies wearing glasses or contacts. Denies fever, trauma, or any other symptoms. Risk-Eye Problem Risk Stratification )( Eye Injury - Adult Risk factors reviewed Review of Systems ROS Statements All systems rev neg except as marked. Free Text ROS Notes Free Text ROS Notes LEFT EYE IRRITATION Past Medical History - Adult Stated Complaint LEFT EYE SWOLLEN Allergies Coded Allergies: No Known Allergies (04/21/24) Pt reports no significant: Past medical history, Past surgical history Smoking status for patients 13 years old or older: Current every day smoker Physical Exam Vital Signs Vital Signs First Documented: Result Date Time Pulse Ox 98 04/21 0639 B/P 163/92 / 0639 B/P Mean 115 / 0639 O2 Delivery Room air 04/21 0639 Temp 36.9 / 0639 Pulse 63 04/21 0639 Resp 17 04/21 0639 Last Documented: Result Date Time Pulse Ox 98 04/21 0639 B/P 163/92 / 0639 B/P Mean 115 / 0639 O2 Delivery Room air 04/21 0639 Temp 36.9 / 0639 Pulse 63 04/21 0639 Resp 17 04/21 0639 Review of Vital Signs Reviewed Focused PE General/Const General/Const Awake, Alert, Well appearing MS Head Head Normocephalic Eyes Eyes Atraumatic, PERRL, EOMI, No nystagmus, No periorbital redness, No periorbital swelling, No scleral icterus, Conjunctiva NL, Cornea clear, Visual acuity NL Text/Dict Notes UPPER AND LOWER EYELIDS EDEMATOUS FROM RUBBING Cornea/Ant Chamber Abrasion L (6 OCLOCK POSITION). Ears/Nose/Throat Ears/Nose/Throat Airway patent, Mucous membranes moist, Pharynx NL Skin Skin Color NL, No rash, Warm, Dry, Turgor NL Neurologic Neurologic Oriented X3, Speech NL, No motor deficits, No sensory deficits Interpretation Diagnostics Point of Care Testing Pulse Oximetry Pulse Ox % 98 On: Room air Interpretation Interpreted by me Procedures Slit Lamp Exam Text/Dict Note The eye exam was a Qureshi lamp exam not a slit-lamp Time Spent (minutes) 10 Procedure Performed by ED PAINTER ASSISTANT Which Eye L eye Dilating Agent Anesthesia Anesthesia: Proparacaine Eyelid/Conjunctiva/Sclera Tear film watery, Sclera diffuse injection Cornea/Ant Chamber/Iris/Lens Corneal abrasion (6 OCLOCK POSITION), Iris round Re-Evaluation MDM Free Text MDM Notes Free Text MDM Notes After the physical exam and H P, I determined the patient does not need labs or other diagnostics. I discussed these results with the patient who verbalized understanding. I will prescribe appropriate medication(s) for this patient's home use. Patient encouraged to follow-up with the provider(s) on the discharge paperwork. The patient is discharged home with supportive care, a plan for symptom management/medication(s), and follow-up instructions that detail what to expect over the next 48 hours and what symptoms should prompt immediate return to the ED. Follow-up instructions have been explained in detail to the patient, and the instructions have been provided in written format. The patient is comfortable with the plan of care and has expressed an understanding of the discharge instructions. The patient and/or caregivers are aware that any significant change in condition or worsening of symptoms should prompt an immediate return to this or the closest emergency department or a call to 911. ED Course Medication(s) Ordered Medication(s) Ordered: Diagnostic Agents Sig/Benjamin Start time Last Medication Dose Route Stop Time Status Admin Fluorescein Sodium 1 MG X1ED STA 04/21 632 DC 04/21 EACH EYE 04/21 633 0653 Eye, Ear, Nose And Throat (Een Sig/Benjamin Start time Last Medication Dose Route Stop Time Status Admin Proparacaine HCl 2 DROP X1ED STA 04/21 632 DC 04/21 EACH EYE 04/21 633 0652 Free Text MDM Notes Free Text MDM Notes Differential Diagnosis Acute vision loss, Conjunctivitis, allergic, Conjunctivitis, bacterial, Conjunctivitis, viral, Corneal abrasion, Corneal laceration, Corneal ulceration, Foreign body, conjunctiva, Foreign body, corneal, Foreign body, intraocular, Foreign body, lid, Orbital cellulitis, Orbital fracture, Periorbital cellulitis, Subconjunctiva hemorrhage, Ultraviolet keratitis Findings/Social Determinants Presentation Acute Severity Evaluation Non life-threatening Diagnosis Appears Non-critical Patient Discharge Departure Vital Signs/Condition Vital Signs First Documented: Result Date Time Pulse Ox 98 04/21 0639 B/P 163/92 / 0639 B/P Mean 115 / 0639 O2 Delivery Room air 04/21 0639 Temp 36.9 04/21 0639 Pulse 63 04/21 0639 Resp 17 04/21 0639 Last Documented: Result Date Time Pulse Ox 98 04/21 0639 B/P 163/92 04/21 0639 B/P Mean 115 / 0639 O2 Delivery Room air 04/21 0639 Temp 36.9 04/21 0639 Pulse 63 04/21 0639 Resp 17 04/21 0639 All vital signs available at the time of this entry have been reviewed. Condition Stable Clinical Impression Clinical Impression Primary Impression: Corneal abrasion, left Disposition Decision Discharge )( Discharged to Home Yes )( Time 0637 )( Date 04/21/24 Discharge/Care Plan Counseled Regarding Diagnosis, Prescriptions, Need for follow-up, When to return to ED (Auto) Prescriptions Current Visit Scripts KETOROLAC (KETOROLAC 0.5% OPHTH SOLN 5 ML) 1 DROP LEFT EYE Q6H PRN PRN PAIN KETOROLAC (KETOROLAC 0.5% OPHTH SOLN 5 ML) 1 DROP LEFT EYE Q6H PRN PRN PAIN #5 ML TOBRAMYCIN/DEXAMETHASONE (TOBRAMYCIN/DEXAMETHASONE 0.3%-0.1% OPHTH) 1 DROP LEFT EYE Q4H TOBRAMYCIN/DEXAMETHASONE (TOBRAMYCIN/DEXAMETHASONE 0.3%-0.1% OPHTH) 1 DROP LEFT EYE Q4H #2.5 ML Prescriptions Reviewed Risks, Benefits, Alternative treatment Patient Instructions ED Corneal Abrasion Additional Instructions As we discussed you have a scrape across the surface of your left eye which is causing your symptoms. Please do not touch or rub your left eye. Please instill the drops as prescribed and follow-up with the telephone lineman on your discharge instructions. Please pay attention your discharge instructions on when you should return to your nearest emergency room. Thank you. Departure Forms WORK/SCHOOL EXCUSE VARIABLE Discharge Note I have spoken with the patient and/or caregivers. I have explained the patient's condition, diagnoses and treatment plan based on the information available to me at this time. I have answered the patient's and/or caregiver's questions and addressed any concerns. The patient and/or caregivers have as good an understanding of the patient's diagnosis, condition and treatment plan as can be expected at this point. The vital signs have been stable. The patient's condition is stable and appropriate for discharge from the emergency department. The patient will pursue further outpatient evaluation with the primary care physician or other designated or consulting physician as outlined in the discharge instructions. The patient and/or caregivers are agreeable to this plan of care and follow-up instructions have been explained in detail. The patient and/or caregivers have received these instructions in written format and have expressed an understanding of the discharge instructions. The patient and/or caregivers are aware that any significant change in condition or worsening of symptoms should prompt an immediate return to this or the closest emergency department or a call to 911. Quality Measures BP F/U for HTN Referred for BP f/u < 4wk, F/u with PCP/other doc Tobacco Screening/Cessation 18 years or older, Tobacco user, Counseled 3-10 minutes Deon Frank 04/22/242032: Patient Discharge Departure Discharge/Care Plan Referrals Provider Referral: Missael Benedict MD Follow-Up: 2-3 Days Notes: OPHTHALMOLOGY FOLLOW UP Address: [facility] [address] [place] [address] Supervising Physician Note MidLv Saw Pt Alone I have reviewed the PA/PAINTER ASSISTANT's note and plan of care. I was available for consultation as needed at all times during the patient's visit in the emergency department. I agree with the clinical impression, plan and disposition. at 0708 at 1365 RPT #:[id number] END OF REPORT [facility]
--- NOTE | 2024-07-26 16:00 | ER ---
Nurse's Notes [facility] Name: Davonte Boucher Age: 53 yrs Sex: Male : 1970 Arrival Date: 07/26/2024 Time: 15:28 Bed DX3 Private MD: Diagnosis: Right otitis media, bilateral TMJ inflammation Presentation: 07/26 15:46 Chief complaint: Patient states: berhane ear pain, it's hard to bite down because there is iw s a lot of pain in my jaw and ears. Coronavirus screen: At this time, the client does not indicate any symptoms associated with coronavirus-19. Ebola Screen: No symptoms or risks identified at this time. Initial Sepsis Screen: Does the patient meet any 2 criteria? No. Patient's initial sepsis screen is negative. Does the patient have a suspected source of infection? No. Patient's initial sepsis screen is negative. Risk Assessment: Do you want to hurt yourself or someone else? Patient reports no desire to harm self or others. 15:46 Method Of Arrival: Ambulatory iw 15:46 Acuity: [id number] 4 iw 15:47 Onset of symptoms was July 23, 2024. iw Historical: - Allergies: 15:47 NKA; iw - PMHx: 15:47 Diverticulitis; Hypertension; iw - PSHx: 15:47 knee; iw - Immunization history:: Adult Immunizations not up to date. - Infectious Disease History:: Denies. - Social history:: Smoking status: Patient reports the use of cigarette tobacco products, smokes one-half pack cigarettes per day. Screenin:10 [facility] ED Fall Risk Assessment (Adult) History of falling in the last 3 months, iw including since admission No falls in past 3 months (0 pts) Confusion or Disorientation No (0 pts) Intoxicated or Sedated No (0 pts) Impaired Gait No (0 pts) Mobility Assist Device Used No (0 pt) Altered Elimination No (0 pt) Score/Fall Risk Level 0 - 2 = Low Risk Oriented to surroundings, Maintained a safe environment. Abuse screen: Denies threats or abuse. Denies injuries from another. Nutritional screening: No deficits noted. Tuberculosis screening: No symptoms or risk factors identified. Assessment: 15:48 General: Appears in no apparent distress. Behavior is calm, cooperative. Pain: iw Complains of pain in right ear and left ear. Neuro: Level of Consciousness is awake, alert, obeys commands, Oriented to person, place, time, situation, Moves all extremities. Full function. Cardiovascular: Patient's skin is warm and dry. Respiratory: Respiratory effort is even, unlabored, Respiratory pattern is regular. EENT: Reports pain in right ear and left ear. Derm: Skin is intact, is healthy with good turgor. Vital Signs: 15:46 BP 145 / 87; Pulse 67; Resp 16; Temp 98.6; Pulse Ox 98% on R/A; Weight 108.86 kg; iw Height 5 ft. 9 in. ; Pain 9/10; 15:46 Body Mass Index 35.44 (108.86 kg, 175.26 cm) iw 15:46 Pain Scale: Adult iw ED Course: 15:30 Patient arrived in ED. im 15:43 Lukas Almanza MD is Attending Physician. sp3 15:47 Triage completed. iw 15:47 Arm band placed on. iw 15:48 Kaylynn Rangel RN is Primary Nurse. iw 15:48 Patient has correct armband on for positive identification. Provided Education on: . iw 16:10 No provider procedures requiring assistance completed. Patient did not have IV access iw during this emergency room visit. Administered Medications: No medications were administered Medication: 15:49 VIS not applicable for this client. iw Outcome: 15:59 Discharge ordered by . sp3 16:10 Discharged to home ambulatory, iw 16:10 Condition: good 16:10 Discharge instructions given to patient, Instructed on discharge instructions, follow up and referral plans. medication usage, Demonstrated understanding of instructions, follow-up care, medications, Prescriptions given X 2, 16:11 Patient left the ED. iw Signatures: Kaylynn Rangel, MARTY RN iw Lukas Almanza MD MD sp3 Ivory Dubois im Corrections: (The following items were deleted from the chart) 15:48 15:46 Pulse 67bpm; Resp 16bpm; Pulse Ox 98% RA; Temp 98.6F; 108.86 kg; Height 5 ft. 9 iw in.; BMI: 35.4; Pain 9/10, Adult; iw
--- NOTE | 2024-07-26 16:00 | EDPHYS ---
Physician Documentation [facility] Name: Davonte Boucher Age: 53 yrs Sex: Male : 1970 Arrival Date: 07/26/2024 Time: 15:28 Bed DX3 Private MD: ED Physician Lukas Almanza HPI: 07/26 15:57 This 53 yrs old Black Male presents to ER via Ambulatory with complaints of Jaw Pain, sp3 Ear Pain. 15:57 53-year-old male with history of hypertension presents to the ED with right ear pain sp3 and bilateral TMJ pain. Patient denies any trauma, fever, sore throat, chest pain, anterior jaw pain or any other signs or symptoms on ROS at this time. Symptoms been going on for the last 48 hours.. Historical: - Allergies: 15:47 NKA; iw - PMHx: 15:47 Diverticulitis; Hypertension; iw - PSHx: 15:47 knee; iw - Immunization history:: Adult Immunizations not up to date. - Infectious Disease History:: Denies. - Social history:: Smoking status: Patient reports the use of cigarette tobacco products, smokes one-half pack cigarettes per day. ROS: 15:58 Constitutional: Negative for fever, chills, and weight loss, Eyes: Negative for injury, sp3 pain, redness, and discharge, Neck: Negative for injury, pain, and swelling, Cardiovascular: Negative for chest pain, palpitations, and edema, Respiratory: Negative for shortness of breath, cough, wheezing, and pleuritic chest pain, Abdomen/GI: Negative for abdominal pain, nausea, vomiting, diarrhea, and constipation, Back: Negative for injury and pain, MS/Extremity: Negative for injury and deformity, Skin: Negative for injury, rash, and discoloration, Neuro: Negative for headache, weakness, numbness, tingling, and seizure, Psych: Negative for depression, anxiety, suicide ideation, homicidal ideation, and hallucinations, Allergy/Immunology: Negative for hives, rash, and allergies, Endocrine: Negative for neck swelling, polydipsia, polyuria, polyphagia, and marked weight changes, 15:58 All other systems are negative, Exam: 15:58 Constitutional: This is a well developed, well nourished patient who is awake, alert, sp3 and in no acute distress. Head/Face: Normocephalic, atraumatic. Eyes: Pupils equal round and reactive to light, extra-ocular motions intact. Lids and lashes normal. Conjunctiva and sclera are non-icteric and not injected. Cornea within normal limits. Periorbital areas with no swelling, redness, or edema. Neck: Trachea midline, no thyromegaly or masses palpated, and no cervical lymphadenopathy. Supple, full range of motion without nuchal rigidity, or vertebral point tenderness. No Meningismus. Chest/axilla: Normal chest wall appearance and motion. Nontender with no deformity. No lesions are appreciated. Cardiovascular: Regular rate and rhythm with a normal S1 and S2. No gallops, murmurs, or rubs. Normal PMI, no JVD. No pulse deficits. Respiratory: Lungs have equal breath sounds bilaterally, clear to auscultation and percussion. No rales, rhonchi or wheezes noted. No increased work of breathing, no retractions or nasal flaring. Abdomen/GI: Soft, non-tender, with normal bowel sounds. No distension or tympany. No guarding or rebound. No evidence of tenderness throughout. Back: No spinal tenderness. No costovertebral tenderness. Full range of motion. Skin: Warm, dry with normal turgor. Normal color with no rashes, no lesions, and no evidence of cellulitis. MS/ Extremity: Pulses equal, no cyanosis. Neurovascular intact. Full, normal range of motion. Neuro: Awake and alert, GCS 15, oriented to person, place, time, and situation. Cranial nerves II-XII grossly intact. Motor strength 5/5 in all extremities. Sensory grossly intact. Cerebellar exam normal. Normal gait. Psych: Awake, alert, with orientation to person, place and time. Behavior, mood, and affect are within normal limits. 15:58 ENT: Right ear TM erythematous. Patient also has pain on opening closing of the mouth with mild trismus. Oropharynx exam normal.. Vital Signs: 15:46 BP 145 / 87; Pulse 67; Resp 16; Temp 98.6; Pulse Ox 98% on R/A; Weight 108.86 kg; iw Height 5 ft. 9 in. ; Pain 9/10; 15:46 Body Mass Index 35.44 (108.86 kg, 175.26 cm) iw 15:46 Pain Scale: Adult iw MDM: 15:44 Medical Screening Exam initiated sp3 15:58 Data reviewed: vital signs, nurses notes. ED course: 53-year-old male with right otitis sp3 media and bilateral TMJ inflammation. Clinically have ruled out acute coronary syndrome, sepsis, shock, meningitis, dental etiology, pharyngitis, or any other critical process. Will place patient on Augmentin and diclofenac with PCP follow-up as needed.. Administered Medications: No medications were administered Disposition Summary: 07/26/24 15:59 Discharge Ordered Notes: Location: Home sp3 Condition: Stable sp3 Diagnosis - Right otitis media, bilateral TMJ inflammation sp3 Followup: sp3 - With: Private Physician - When: Upon discharge from the Emergency Department - Reason: Continuance of care Discharge Instructions: - Discharge Summary Sheet sp3 - Otitis Media, Adult sp3 - Temporomandibular Joint Syndrome sp3 Forms: - Medication Reconciliation Form sp3 - Antibiotic Education sp3 - Prescription Opioid Use sp3 - Patient Portal Instructions sp3 - Leadership Thank You Letter sp3 Prescriptions: - Augmentin 875-125 mg Oral Tablet - take 1 tablet ORAL route every 12 hours for 10 days; 20 tablet; Refills: 0, sp3 Product Selection Permitted - Diclofenac Sodium 75 mg Oral Tablet Sustained Release - take 1 tablet ORAL route 2 times per day; 30 tablet; Refills: 0, Product sp3 Selection Permitted Signatures: Kaylynn Rangel, RN RN Lukas Avalos MD MD sp3
[2024-07-26 16:17] VITALS: BP 145/87; TEMP 98.6; O2SAT 98
== END 2024-07-26 16:11 | disposition home or self-care (01) ==
LOC: ER 15:28
DX: H66.91 Otitis media, unspecified, right ear (principal); M26.603 Bilateral temporomandibular joint disorder, unspecified; F17.210 Nicotine dependence, cigarettes, uncomplicated
CPT/HCPCS: 99283